=== PATIENT | male | born 1935 | race Caucasian/White ===

== ENCOUNTER → 2018-01-25 14:35 | Outpatient (CLI) | payer MEDICARE, SELFPAY ==
[2018-01-28 16:55] LABS: Fecal Immunochemical Test NOT DETECTED
== END ==
PROVIDERS: PCP Family Medicine; Visit Provider Family Medicine
DX: K63.5 Polyp of colon (principal)
CPT/HCPCS: 36415; 82274

== ENCOUNTER 2018-11-29 11:19 | Emergency (ER) | payer MEDICARE, SELFPAY ==
[2018-11-29 11:51] VITALS: BP 142/86; PULSE 88; RESP 15; TEMP 36.2; O2SAT 98
[2018-11-29 11:55] VITALS: BP 150/90; PULSE 87; RESP 20; TEMP 36.5; O2SAT 95
--- NOTE | 2018-11-29 13:00 | ED.EXTPRO ---
HPI - Extremity Problem <Ya Peres PA-C - Last Filed: 11/29/18 21:53> General Chief complaint: Extremity Problem,Nontraumatic Stated complaint: Swelling in ankles/hands painful Time Seen by Provider: 11/29/18 12:51 Source: patient Mode of arrival: ambulatory Limitations: no limitations History of Present Illness HPI Narrative: This 83-year-old male states his hands and wrists have been painful and swollen for several weeks. He denies any known trauma although states he has been pushing himself off with his hands to get up, but that is not unusual for him. He states that he saw his PCP recently for knee arthritis and was advised to take ibuprofen for that. He states ibuprofen seems to have helped his knee and initially his hands and wrists, but for the last for 5 days has not been working as well and keeping him from sleep. He states that he has also noticed a bit of swelling in his feet which is new, but his feet are not painful. He denies any pain in any proximal joints or any swelling. He has not had any new rashes or fevers. He denies any recent travel. He denies any dyspnea or chest pain. he denies any other new complaints. Related Data Home Medications Medication Instructions Recorded Confirmed finasteride 5 mg PO DAILY #90 11/09/17 11/29/18 Previous Rx's Medication Instructions Recorded meloxicam 15 mg PO DAILY #10 tab 11/29/18 Allergies Allergy/AdvReac Type Severity Reaction Status Date / Time No Known Drug Allergies Allergy Verified 01/12/18 13:59 Review of Systems <Ya Peres PA-C - Last Filed: 11/29/18 21:53> Review of Systems ROS Unobtainable: All systems reviewed & are unremarkable except as noted in HPI and below PFSH <Ya Peres PA-C - Last Filed: 11/29/18 21:53> Medical History Colon polyps (Chronic) Elevated blood pressure reading (Chronic) Chickenpox (Resolved ~1943) Measles (Resolved ~1944) Skin cancer (Resolved 2014) Surgical History H/O local excision of skin lesion (Chronic) Family History Father No problems noted. Mother No problems noted. Grandfather No problems noted. Social History Smoking Status: Former smoker alcohol intake: current Family History Father No problems noted. Mother No problems noted. Grandfather No problems noted. Social History Smoking Status: Former smoker alcohol intake: current Exam <Ya Peres PA-C - Last Filed: 11/29/18 21:53> Narrative Exam Narrative: GENERAL APPEARANCE: Patient sitting comfortably, in no distress. LUNGS: Clear to auscultation bilaterally. HEART: Rate and rhythm regular without murmur, normal S1 and S2, no S3 or S4. MUSCULOSKELETAL: Both hands are nodular, and there is bilateral hand effusion which extends to the wrists, not the forearms. He has reduced range of motion of the fingers secondary to edema, minimal tenderness with palpation over the wrists and hands, no localized tenderness. normal range of motion of the elbows. No tenderness over the feet or ankles where he has full range of motion. no effusions proximal to the distal extremities. EXTREMITIES: Mild pedal edema, pedal pulses intact, feet are warm and pink. No cyanosis NEURO: Sensation is grossly intact over the extremities, intention tremor noted Initial Vital Signs Initial Vital Signs: Vital Signs Temperature 97.2 F L 11/29/18 11:51 Pulse Rate 88 11/29/18 11:51 Respiratory Rate 15 11/29/18 11:51 Blood Pressure 142/86 H 11/29/18 11:51 Pulse Oximetry 98 11/29/18 11:51 <Ancelmo Reveles DO - Last Filed: 11/30/18 07:10> Initial Vital Signs Initial Vital Signs: Vital Signs Temperature 97.2 F L 11/29/18 11:51 Pulse Rate 88 11/29/18 11:51 Respiratory Rate 15 11/29/18 11:51 Blood Pressure 142/86 H 11/29/18 11:51 Pulse Oximetry 98 11/29/18 11:51 Course <Ya Peres PA-C - Last Filed: 11/29/18 21:53> Additional Information: Discussed with patient need for further workup, would start with x-ray and some lab work. He prefers to do this is an outpatient for these ongoing symptoms. he does not think he will have any problems seeing his PCP in the next few days but will return if acutely worse. Ibuprofen had been helping, but not taking consistently. Will change to meloxicam prior to him seeing PCP to see if this is helpful, and discussed if not may need a trial of steroids. Vital Signs - 8 hr 11/29/18 11:51 11/29/18 11:55 Temperature 97.2 F L 97.7 F Pulse Rate 88 87 Respiratory Rate 15 20 Blood Pressure 142/86 H Blood Pressure [Left Arm] 150/90 H Pulse Oximetry 98 95 <Ancelmo Reveles, DO - Last Filed: 11/30/18 07:10> Vital Signs - 8 hr 11/29/18 11:51 11/29/18 11:55 Temperature 97.2 F L 97.7 F Pulse Rate 88 87 Respiratory Rate 15 20 Blood Pressure 142/86 H Blood Pressure [Left Arm] 150/90 H Pulse Oximetry 98 95 Discharge Plan Departure Patient Disposition: Home Clinical Impression: Pedal edema Effusion of joint, hand Qualifiers: Laterality: unspecified laterality Qualified Code(s): M25.449 - Effusion, unspecified hand Discharge Date/Time: 11/29/18 13:30 Interventions: ED Discharge Assessment Last Done: 11/29/18 13:49 Instructions: DI for Joint Pain Activity Restrictions/Additional Instructions: As we talked about, I do think you need further testing for your hand and wrist swelling, with an x-ray and some lab work to start. Your foot swelling may or may not be related to this since you are having no pain or stiffness in your feet. Since you prefer to do that as an outpatient, please make sure that you follow-up with Dr. Gamez this week, call their when you leave here and let his office know that you were seen in the emergency room and we advised follow-up in the next couple of days since you are getting worse. Please return as we talked about if you have any acutely worsening symptoms or new symptoms such as breathing difficulty. Please stop the ibuprofen. I have prescribed a once daily cousin of it since it was helping you, we can see if more consistent dosing is better for your pain. it is called meloxicam and you can started as soon as you pick it up. If you need additional medicine, please try adding some Tylenol 8 hour or arthritis strength, 1 tablet or capsule 3-4 times daily (and at least try taking 1 at bedtime). Ask the pharmacist for this if you cannot find it, it is [id number]. You can also try topical cream such as Lenard Parker, Blue Emu etc. Prescriptions: New meloxicam 15 mg tablet 15 mg PO DAILY Qty: 10 RF: 0 No Action finasteride 5 MG tablet 5 mg PO DAILY Qty: 90 RF: 0 Referrals: Parish Gamez MD [Primary Care Provider] - <Ancelmo Reveles DO - Last Filed: 11/30/18 07:10> Cosign ED Attending Pjature Attestation: I was available for consultation during this patient's emergency department encounter
--- NOTE | 2018-11-29 13:33 | PC.NURSE ---
Bilateral hand swelling - Right > Left; Bilateral hand pain - Right > Left with pain radiating up towards the elbow; Stated My fingers too puffy to tie my shoes
[2018-11-29 13:49] VITALS: BP 148/66; PULSE 85; RESP 18; TEMP 36.3; O2SAT 98
== END 2018-11-29 13:30 | disposition home or self-care (01) ==
PROVIDERS: Emergency Provider Internal Medicine; PCP Family Medicine
DX: R60.0 Localized edema (principal); M25.449 Effusion, unspecified hand
CPT/HCPCS: 99282; 99283

== ENCOUNTER 2020-07-09 11:12 | Inpatient (IN) | payer MEDICARE, SELFPAY ==
[2020-07-09] VITALS (17 sets, daily range): BP systolic 130–185; BP diastolic 74–102; PULSE 69–103; RESP 12–27; TEMP 36.2–36.9; O2SAT 97–100; BMI 25.7
--- NOTE | 2020-07-09 11:25 | DI.RAD.S_ITS ---
PROCEDURE: XR HIP W PEL IF DONE LT MIN 4V INDICATIONS: fall t-7 days, pain in left hip TECHNIQUE: AP pelvis with lateral view(s) of the bilateral hip(s). COMPARISON: None. FINDINGS: Bones: No fractures or dislocations. Right worse than left bilateral hip joint osteoarthritic changes are seen. No evidence of avascular necrosis of femoral head. Pelvic ring appears intact. No suspicious bony lesions. Soft tissues: The visualized bowel gas pattern is normal. No suspicious soft tissue calcifications. IMPRESSION: No hip fracture or dislocation. Right worse than left bilateral hip joint osteoarthritis. No evidence of avascular necrosis. Dictated by: Lon Quach M.D. on 07/09/2020 at 12:29 Approved by: Lon Quach M.D. on 07/09/2020 at 12:30
[2020-07-09 14:10] LABS: Add Manual Diff / Slide Review NO; Basophils Absolute Auto 0 /uL (0-100); Basophils Percent Auto 0.5 % (0-2); Eosinophils Absolute Auto 200 /uL (0-450); Eosinophils Percent Auto 2.5 % (2-4); Hematocrit 45.4 % (41-53); Hemoglobin 15.3 g/dL (13.5-17.5); Lymphocytes Absolute Auto 500 /uL (1100-4500); Lymphocytes Percent Auto 8.6 % (25-40); Mean Corpuscular HGB Conc 33.7 % (30-36); Mean Corpuscular Hemoglobin 32.4 PG (26-34); Mean Corpuscular Volume 95.9 fL (80-100); Monocytes Absolute Auto 800 /uL (0-900); Monocytes Percent Auto 13.4 % (3-14); Neutrophils Absolute Auto 4500 /uL (1500-7000); Platelet Count 221 X10^3/uL (150-400); Red Blood Cell Count 4.74 X10^6/uL (4.5-5.9); Red Cell Distribution Width 15.2 % (11.6-14.8)
--- NOTE | 2020-07-09 14:18 | PC.NURSE ---
Pt up at bedside for mobilization trial. Pt very weak in bilateral legs. Wobbling and shaking. Stood for 30 seconds with RN and BIOMATERIALS ENGINEER on standby. Unable to side step. Moves around in bed with good upper extremity strength. MD notified. Pt positioned with pillow on right hip and gentle border dressing placed to pressure sore on right hip.
[2020-07-09 14:21] LABS: Bacteria Urine None Seen
[2020-07-09 14:22] LABS: Appearance Urine UA CLEAR; Bilirubin Urine UA NEGATIVE (NEGATIVE); Color Urine UA YELLOW; Glucose Urine UA NEGATIVE (Negative); Ketones Urine UA 1+ (NEGATIVE); Leukocyte Esterase Urine UA NEGATIVE (NEGATIVE); Nitrite Urine UA NEGATIVE (Negative); Occult Blood Urine UA TRACE-INTACT (Negative); Protein Urine UA NEGATIVE (Negative); Urobilinogen Urine UA 0.2 E.U./dL (0.2)
--- NOTE | 2020-07-09 14:22 | PC.NURSE ---
pressure wound 9cm x 5cm. redness and warmth noted. closed tissue noted.
[2020-07-09 14:40] LABS: Creatine Kinase 275 U/L (55-170); Magnesium 2.1 mg/dL (1.6-2.3)
[2020-07-09 14:41] LABS: RBC Urine 1-5/HPF (0-5/HPF)
[2020-07-09 14:42] LABS: WBC Urine 5-10/HPF (0-5/HPF)
[2020-07-09 14:43] LABS: Culture Indicated Urine Specimen Cultured; White Blood Cell Casts Urine 1-5/LPF
[2020-07-09 14:52] LABS: NT-proBNP (BNP-Adult 18+) 236 pg/mL (<450); Troponin I < 0.012 ng/mL (0.01-0.034)
--- NOTE | 2020-07-09 15:11 | ED_ITS ---
HPI - Fall General Chief Complaint: Fall Stated Complaint: fall Time Seen by Provider: 07/09/20 11:27 Source: patient and EMS Mode of arrival: EMS History of Present Illness HPI Narrative: 84-year-old gentleman with a history of BPH fell at home on July 02 and was unable to get off the floor. He and his felt that it was most appropriate to bring a twin mattress down stairs and he was able roll onto this mattress and has been the last week lying on the floor. Has not had a bowel movement and his has been providing him a urinal as well as food on the floor. He is not particularly complaining of pain and states that he simply was too weak to get. He states that he told his primary care physician that he was having more global weakness and was sent to physical therapy. After approximately 10 visits physical therapist felt that he was getting quite a bit stronger. Based on that information, the patient felt that he would improve and that staying on the floor unable to get up was appropriate. He describes no f iza, cough, chills, chest pain, shortness of breath, abdominal pain, lower extremity pain. He stated that he had a slight amount of left hip pain at 1 point but that is essentially better. He has a decubitus stage I developing over the right hip. Related Data Home Medications Medication Instructions Recorded Confirmed finasteride 5 mg PO DAILY #90 11/09/17 11/29/18 Previous Rx's Medication Instructions Recorded meloxicam 15 mg PO DAILY #10 tab 11/29/18 Allergies Allergy/AdvReac Type Severity Reaction Status Date / Time No Known Drug Allergies Allergy Verified 01/12/18 13:59 Review of Systems Review of Systems Narrative: Remainder of review of systems including constitutional, ENT, cardiovascular, respiratory, GI, , musculoskeletal, skin, neurologic and psychiatric systems reviewed and are unremarkable except as noted in HPI. Patient History Medical History (Updated 07/09/20 @ 18:27 by Ciara Keith MD) Chickenpox (~1944) Colon polyps Elevated blood pressure reading Measles (~1945) Skin cancer (2014) Surgical History H/O local excision of skin lesion Family History Father No problems noted. Mother No problems noted. Grandfather No problems noted. Social History Smoking Status: Former smoker alcohol intake: current Smoking Status: Former smoker alcohol intake frequency: holidays/special occasions only Alcohol type: wine Substance Use Type: does not use Exam Narrative Exam Narrative: General: Healthy appearing, in no acute distress. Able to give a complete and coherent history. Well-nourished well-developed HEENT: Moist mucous membranes, normal sclera with reactive pupils, Neck: No JVD, supple Respiratory: Lungs are clear to auscultation, no wheezing no rales no rhonchi. Full and symmetrical air movement Cardiac: Regular rate and rhythm no murmurs no bruits Abdomen: Obese, Soft, nontender good bowel tones, no flank pain Skin: Warm and dry, no rashes Neurologic: Not oriented to day or date, able to carry on a complete conversation. Globally weak and when standing needs 2 person standby assist to simply stand bedside. Legs are bilaterally weak. No other localizing neurologic findings, no facial droop no upper extremity asymmetries. Extremities: No trauma, well perfused, 5 x 5 cm stage I decubitus ulcer developing over the right greater trochanter where he has been lying the last w [place]. No tenderness with internal or external rotation of either leg at the hip joint. No tenderness with pelvic ring manipulation Psych: Cooperative, history suggests some cognitive judgment impairment, speech fluency is normal, nonpressured without any delusional thinking or Initial Vital Signs Initial Vital Signs: Vital Signs Pulse Rate 86 07/09/20 11:16 Respiratory Rate 27 H 07/09/20 11:16 Pulse Oximetry 99 07/09/20 11:16 Course Orders Ordered: ED Orders 07/09/20 11:25 XR hip w pel if done GERI 3to4V Stat 07/09/20 11:26 Consult to RETAIL LOSS PREVENTION SPECIALIST - Wastewater Analyst Stat 07/09/20 14:02 Complete Blood Count AUTO DIFF Stat Comprehensive Metabolic Panel Stat Creatine Kinase Stat Magnesium Stat NT-proBNP (BNP-Adult 18+) Stat Procalcitonin Stat Troponin I Stat 07/09/20 14:17 Urinalysis and Microscopic Stat Urine Culture Stat 07/09/20 15:12 CT head/brain wo con Stat 07/09/20 17:17 EKG-12 Lead Stat 07/09/20 17:29 COVID19 Stat Vital Signs Vital signs: Vital Signs - 8 hr 07/09/20 11:16 07/09/20 11:18 07/09/20 11:30 Temperature 97.8 F Pulse Rate 86 84 88 Respiratory Rate 27 H 12 25 H Blood Pressure 175/85 H 151/102 H Pulse Oximetry 99 98 100 07/09/20 11:46 07/09/20 12:00 07/09/20 12:30 Temperature Pulse Rate 73 85 69 Respiratory Rate 19 26 H 17 Blood Pressure 181/82 H 168/78 H 185/81 H Pulse Oximetry 99 100 99 07/09/20 13:00 07/09/20 13:30 07/09/20 14:00 Temperature Pulse Rate 83 87 89 Respiratory Rate 21 16 Blood Pressure 147/74 H 162/83 H Pulse Oximetry 98 99 99 07/09/20 14:01 07/09/20 14:07 07/09/20 14:30 Temperature Pulse Rate 86 94 H 75 Respiratory Rate 20 25 H 14 Blood Pressure 156/86 H 150/75 H 175/79 H Pulse Oximetry 98 100 07/09/20 15:00 07/09/20 15:27 07/09/20 15:30 Temperature Pulse Rate 80 93 H 78 Respiratory Rate 17 16 13 Blood Pressure 136/74 130/102 H 156/86 H Pulse Oximetry 98 97 97 MDM - Fall Medical Records Attestation: I reviewed the patient's medical records. Lab Data Attestation: I reviewed the patient's lab results. Result diagrams: 07/09/20 14:02 07/09/20 14:02 Labs: Lab Results 07/09/20 07/09/20 07/09/20 Range/Units 14:02 14:02 14:02 WBC 6.0 (4.5-11.0) X10^3/uL RBC 4.74 (4.5-5.9) X10^6/uL Hgb 15.3 (13.5-17.5) g/dL Hct 45.4 (41-53) % MCV 95.9 (80-100) fL MCH 32.4 (26-34) PG MCHC 33.7 (30-36) % RDW 15.2 H (11.6-14.8) % Plt Count 221 (150-400) X10^3/uL Neut % (Auto) 75.0 (50-75) % Lymph % (Auto) 8.6 L (25-40) % [place] % (Auto) 13.4 (3-14) % Eos % (Auto) 2.5 (2-4) % Baso % (Auto) 0.5 (0-2) % Neut # (Auto) 4500 (6905-9264) /uL Lymph # (Auto) 500 L (7994-8928) /uL [place] # (Auto) 800 (0-900) /uL Eos # (Auto) 200 (0-450) /uL Baso # (Auto) 0 (0-100) /uL Sodium 137 (137-145) mmol/L Potassium 4.0 (3.4-5.1) mmol/L Chloride 106 (98-107) mmol/L Carbon Dioxide 23 (22-32) mmol/L BUN 18 (9-20) mg/dL Creatinine 0.55 L (0.66-1.25) mg/dL Estimated GFR > 60.0 (>60) mL/min BUN/Creatinine Ratio 32.7 H (6-22) Glucose 96 (80-110) mg/dL Calcium 9.2 (8.4-10.2) mg/dL Magnesium 2.1 (1.6-2.3) mg/dL Total Bilirubin 0.9 (0.2-1.3) mg/dL AST 78 H (17-59) IU/L ALT 53 H (<50) IU/L Alkaline Phosphatase 150 H (38-126) U/L Total Creatine Kinase Cancelled 275 H Troponin I < 0.012 (0.01-0.034) ng/mL NT-Pro-B Natriuret Pep 236 (<450) pg/mL Total Protein 6.9 (6.3-8.2) g/dL Albumin 3.8 (3.5-5.0) g/dL Globulin 3.1 (1.7-4.1) g/dL Albumin/Globulin Ratio 1.2 (1.0-2.8) Procalcitonin (<0.5) ng/mL Urine Color Urine Appearance Urine pH (4.5-8.0) Ur Specific [place] (1.000-1.035) Urine Protein (Negative) Urine Glucose (UA) (Negative) g/dL Urine Ketones (NEGATIVE) Urine Occult Blood (Negative) Urine Nitrate (Negative) Urine Bilirubin (NEGATIVE) Urine Urobilinogen (0.2) E.U./dL Ur Leukocyte Esterase (NEGATIVE) Urine RBC (0-5/HPF) Urine WBC (0-5/HPF) Urine Bacteria (None) WBC Casts (None) Ur Culture Indicated? 07/09/20 07/09/20 Range/Units 14:02 14:17 WBC (4.5-11.0) X10^3/uL RBC (4.5-5.9) X10^6/uL Hgb (13.5-17.5) g/dL Hct (41-53) % MCV (80-100) fL MCH (26-34) PG MCHC (30-36) % RDW (11.6-14.8) % Plt Count (150-400) X10^3/uL Neut % (Auto) (50-75) % Lymph % (Auto) (25-40) % [place] % (Auto) (3-14) % Eos % (Auto) (2-4) % Baso % (Auto) (0-2) % Neut # (Auto) (6241-7662) /uL Lymph # (Auto) (4168-9018) /uL [place] # (Auto) (0-900) /uL Eos # (Auto) (0-450) /uL Baso # (Auto) (0-100) /uL Sodium (137-145) mmol/L Potassium (3.4-5.1) mmol/L Chloride (98-107) mmol/L Carbon Dioxide (22-32) mmol/L BUN (9-20) mg/dL Creatinine (0.66-1.25) mg/dL Estimated GFR (>60) mL/min BUN/Creatinine Ratio (6-22) Glucose (80-110) mg/dL Calcium (8.4-10.2) mg/dL Magnesium (1.6-2.3) mg/dL Total Bilirubin (0.2-1.3) mg/dL AST (17-59) IU/L ALT (<50) IU/L Alkaline Phosphatase (38-126) U/L Total Creatine Kinase Troponin I (0.01-0.034) ng/mL NT-Pro-B Natriuret Pep (<450) pg/mL Total Protein (6.3-8.2) g/dL Albumin (3.5-5.0) g/dL Globulin (1.7-4.1) g/dL Albumin/Globulin Ratio (1.0-2.8) Procalcitonin < 0.05 (<0.5) ng/mL Urine Color Yellow Urine Appearance Clear Urine pH 5.0 (4.5-8.0) Ur Specific [place] 1.020 (1.000-1.035) Urine Protein Negative (Negative) Urine Glucose (UA) Negative (Negative) g/dL Urine Ketones 1+ H (NEGATIVE) Urine Occult Blood Trace-intact (Negative) Urine Nitrate Negative (Negative) Urine Bilirubin Negative (NEGATIVE) Urine Urobilinogen 0.2 (0.2) E.U./dL Ur Leukocyte Esterase Negative (NEGATIVE) Urine RBC 1-5/hpf (0-5/HPF) Urine WBC 5-10/hpf H (0-5/HPF) Urine Bacteria None seen (None) WBC Casts 1-5/lpf H (None) Ur Culture Indicated? Specimen cultured Imaging Data X-ray pelvis and bilateral hips: Radiologist's Impression: FINDINGS: Bones: No fractures or dislocations. Right worse than left bilateral hip joint osteoarthritic changes are seen. No evidence of avascular necrosis of femoral head. Pelvic ring appears intact. No suspicious bony lesions. Soft tissues: The visualized bowel gas pattern is normal. No suspicious soft tissue calcifications. IMPRESSION: No hip fracture or dislocation. Right worse than left bilateral hip joint osteoarthritis. No evidence of avascular necrosis. Dictated by: Lon Quach M.D. on 07/09/2020 at 12:29 CT scan - head: Radiologist's Impression: FINDINGS: Image quality: Excellent. CSF spaces: Basal cisterns are patent. No extra-axial fluid collections. The ventricles are symmetric in size and shape. Brain: No intracranial bleeds or masses. Punctate hypodensity noted in the right basal ganglia which could represent subacute lacunar infarct versus volume averaging or artifact related to prominent perivascular space. There is cerebral volume loss for age, with resultant ventricular and sulcal prominence. There are periventricular and deep white matter chronic small vessel ischemic changes. There is intracranial internal carotid artery atherosclerosis. Skull and face: Calvarium and visualized facial bones appear intact, without suspicious lesions. Sinuses: Visualized sinuses and mastoids are clear. IMPRESSION: 1. Small right basal ganglia subacute lacunar infarct versus prominent perivascular space. 2. No intracranial hemorrhage. Dictated by: Cassidy Morales MD, PhD on 07/09/2020 at 15:46 MDM Narrative Medical decision making narrative: Talked with Dr. Rodríguez, hospitalist. Will admit for generalized weakness inability to stand up and possible stroke a week ago. Because of the uncertain diagnosis tPA is not appropriate No obvious metabolic disorders. Urine has been cultured but will not begin antibiotics for UTI at this time. Will need COVID testing for hospital admission Will plan for observation admission at this time Discharge Plan Departure Patient Disposition: Admitted as Observation Clinical Impression: Fall Qualifiers: Encounter type: initial encounter Qualified Code(s): W19.XXXA - Unspecified fall, initial encounter Stroke Qualifiers: CVA mechanism: unspecified Qualified Code(s): I63.9 - Cerebral infarction, unspecified Admit Date/Time: 07/09/20 17:20 Admit Provider: Vinod Rodríguez
--- NOTE | 2020-07-09 15:12 | DI.CT.S_ITS ---
PROCEDURE: CT HEAD/BRAIN WO CON INDICATIONS: increased global weakness and inabiltiy to walk - LE weaknes TECHNIQUE: Noncontrast 4.5 mm thick angled axial sections acquired from the foramen magnum to the vertex, with coronal and sagittal reformats. For radiation dose reduction, the following was used: automated exposure control, adjustment of mA and/or kV according to patient size. COMPARISON: None. FINDINGS: Image quality: Excellent. CSF spaces: Basal cisterns are patent. No extra-axial fluid collections. The ventricles are symmetric in size and shape. Brain: No intracranial bleeds or masses. Punctate hypodensity noted in the right basal ganglia which could represent subacute lacunar infarct versus volume averaging or artifact related to prominent perivascular space. There is cerebral volume loss for age, with resultant ventricular and sulcal prominence. There are periventricular and deep white matter chronic small vessel ischemic changes. There is intracranial internal carotid artery atherosclerosis. Skull and face: Calvarium and visualized facial bones appear intact, without suspicious lesions. Sinuses: Visualized sinuses and mastoids are clear. IMPRESSION: 1. Small right basal ganglia subacute lacunar infarct versus prominent perivascular space. 2. No intracranial hemorrhage. Dictated by: Cassidy Morales MD, PhD on 07/09/2020 at 15:46 Approved by: Cassidy Morales MD, PhD on 07/09/2020 at 15:48
[2020-07-09 15:29] LABS: Alanine Aminotransferase 53 IU/L (<50); Albumin 3.8 g/dL (3.5-5.0); Albumin Globulin Ratio 1.2 (1.0-2.8); Alkaline Phosphatase 150 U/L (38-126); Aspartate Aminotransferase 78 IU/L (17-59); BUN Creatinine Ratio 32.7 (6-22); Bilirubin Total 0.9 mg/dL (0.2-1.3); Blood Urea Nitrogen 18 mg/dL (9-20); Calcium 9.2 mg/dL (8.4-10.2); Carbon Dioxide 23 mmol/L (22-32); Chloride 106 mmol/L (98-107); Estimated Glomerular Filt Rate > 60.0 mL/min (>60); Globulin 3.1 g/dL (1.7-4.1); Glucose 96 mg/dL (80-110); HEMOLYSIS 43 (0-50); Sodium 137 mmol/L (137-145); Total Protein 6.9 g/dL (6.3-8.2)
[2020-07-09 15:31] LABS: Procalcitonin < 0.05 ng/mL (<0.5)
[2020-07-09 17:53] LABS: COVID19 -Nasal RAPID Negative (Negative)
--- NOTE | 2020-07-09 18:37 | P.HP_ITS ---
History of Present Illness History of Present Illness Date Patient Seen: 07/09/20 Time Patient Seen: 18:37 Chief complaint: fall Narrative: Fredrick Morales is an 84 year old male with PMH of BPH who presented to the emergency room with frequent falls. The patient reports falling at home a couple of weeks ago, he has been afraid to get up and move due to his frequent falls and weakness. According to the ER provider he and his thought it was most appropriate to bring a twin mattress down stairs and had provided him with a urinal as well as food on the floor. He has not had a bowel movement in the past week. He denies any chest pain, palpitations, lower extremity swelling or edema, shortness of breath, dizziness. He does complain of worsening weakness. He reports that he recently saw a neurologist but for what exactly he could not tell me and he had just completed physical therapy. He further denies any fevers, chills, cough, abdominal pain. He does endorse some urinary frequency no dysuria. He does endorse hip pain after his fall, but when asked where in his hip he was not able to tell me if this was in his left or right side In the emergency room, patient was mildly hypertensive but the remainder of his vital signs are unremarkable. Initial CBC was unremarkable, chemistries revealed a mildly elevated AST of 78, mildly elevated ALT of 53, alk-phos of 150, CK was mildly elevated 275. Troponin was negative. ProBNP was 236. P rocalcitonin was negative. Urinalysis showed 5-10 white blood cells per high- powered field and white blood cell casts, specimen was sent for culture. COVID- 19 testing was negative. EKG was unremarkable but is limited by significant baseline artifact probably due to his tremor. CT noncontrast of his head showed a possible right basal ganglia subacute infarct. Patient is admitted under inpatient status for likely CVA. Patient History Medical History Chickenpox (~1944) Colon polyps Elevated blood pressure reading Measles (~1945) Skin cancer (2014) Surgical History H/O local excision of skin lesion Family & Social History Family History Father No problems noted. Mother No problems noted. Grandfather No problems noted. Safety & Behavioral: Feels Safe in Current Yes Environment Been Physically Hurt or No Threatened By a Person Tobacco & Substance use: Smoking Status Former smoker alcohol intake current alcohol intake frequency holiday/special occasion Substance Use Type does not use Meds Home Medications and Allergies Home Medications Medication Instructions Recorded Confirmed Type finasteride 5 mg PO DAILY #90 11/09/17 07/09/20 History Allergies Allergy/AdvReac Type Severity Reaction Status Date / Time No Known Drug Allergies Allergy Verified 01/12/18 13:59 Review of Systems Review of Systems Narrative: All other systems reviewed with the patient and are negative unless otherwise stated. Exam Vital Signs (past 8 hours): - 07/09/20 11:16 07/09/20 11:18 07/09/20 11:30 Temperature 97.8 F Pulse Rate 86 84 88 Respiratory Rate 27 H 12 25 H Blood Pressure 175/85 H 151/102 H Pulse Oximetry 99 98 100 07/09/20 11:46 07/09/20 12:00 07/09/20 12:30 Temperature Pulse Rate 73 85 69 Respiratory Rate 19 26 H 17 Blood Pressure 181/82 H 168/78 H 185/81 H Pulse Oximetry 99 100 99 07/09/20 13:00 07/09/20 13:30 07/09/20 14:00 Temperature Pulse Rate 83 87 89 Respiratory Rate 21 16 Blood Pressure 147/74 H 162/83 H Pulse Oximetry 98 99 99 07/09/20 14:01 07/09/20 14:07 07/09/20 14:30 Temperature Pulse Rate 86 94 H 75 Respiratory Rate 20 25 H 14 Blood Pressure 156/86 H 150/75 H 175/79 H Pulse Oximetry 98 100 07/09/20 15:00 07/09/20 15:27 07/09/20 15:30 Temperature Pulse Rate 80 93 H 78 Respiratory Rate 17 16 13 Blood Pressure 136/74 130/102 H 156/86 H Pulse Oximetry 98 97 97 Oxygen Delivery Method Room Air Narrative Exam Narrative: GENERAL APPEARANCE: Well developed, well nourished, in no acute distress. SKIN: Inspection of the skin reveals no rashes or petechiae. There is a right hip stage I decubitus ulcer. HEENT: Normocephalic atraumatic, extraocular muscles are intact, oropharynx is clear and mucous membranes are moist, neck is supple without adenopathy NECK: Supple and symmetric. There was no thyroid enlargement, and no tenderness, or masses were felt. CHEST: Normal AP diameter and normal contour without any kyphoscoliosis. LUNGS: Auscultation of the lungs revealed no wheezes, rhonchi, or rales. CARDIOVASCULAR: There was a regular rate and rhythm without any murmurs, gallops, rubs. Peripheral pulses were 2+ and symmetric. ABDOMEN: Soft and nontender with normal bowel sounds. No ascites was noted. MUSCULOSKELETAL: There was no tenderness or effusions noted. Muscle strength and tone were normal. EXTREMITIES: No cyanosis, clubbing or edema. NEUROLOGIC: Alert and oriented x 3. Normal affect, but mild to moderate cognitive impairment. Left leg drifts down to bed with mild left-sided ataxia. NIH stroke scale of 2 as documented below. Cranial nerves 2-12 grossly intact bilaterally. Mild tremor, more prominent in left compared to the right. Sensation to light touch is intact bilaterally. Objective ECG Impression: Normal sinus rhythm with significant baseline artifact making further interpretation difficult Imaging CT scan - head: Radiologist's impression: INDICATIONS: increased global weakness and inabiltiy to walk - [facility] TECHNIQUE: Noncontrast 4.5 mm thick angled axial sections acquired from the foramen magnum to the vertex, with coronal and sagittal reformats. For radiation dose reduction, the following was used: automated exposure control, adjustment of mA and/or kV according to patient size. COMPARISON: None. FINDINGS: Image quality: Excellent. CSF spaces: Basal cisterns are patent. No extra-axial fluid collections. The ventricles are symmetric in size and shape. Brain: No intracranial bleeds or masses. Punctate hypodensity noted in the right basal ganglia which could represent subacute lacunar infarct versus volume averaging or artifact related to prominent perivascular space. There is cerebral volume loss for age, with resultant ventricular and sulcal prominence. There are periventricular and deep white matter chronic small vessel ischemic changes. There is intracranial internal carotid artery atherosclerosis. Skull and face: Calvarium and visualized facial bones appear intact, without suspicious lesions. Sinuses: Visualized sinuses and mastoids are clear. IMPRESSION: 1. Small right basal ganglia subacute lacunar infarct versus prominent perivascular space. 2. No intracranial hemorrhage. Labs Result Diagrams: 07/09/20 14:02 07/09/20 14:02 Labs: Laboratory Results - last 24 hr 07/09/20 07/09/20 07/09/20 14:02 14:02 14:02 WBC 6.0 RBC 4.74 Hgb 15.3 Hct 45.4 MCV 95.9 MCH 32.4 MCHC 33.7 RDW 15.2 H Plt Count 221 Neut % (Auto) 75.0 Lymph % (Auto) 8.6 L [place] % (Auto) 13.4 Eos % (Auto) 2.5 Baso % (Auto) 0.5 Neut # (Auto) 4500 Lymph # (Auto) 500 L [place] # (Auto) 800 Eos # (Auto) 200 Baso # (Auto) 0 Sodium 137 Potassium 4.0 Chloride 106 Carbon Dioxide 23 BUN 18 Creatinine 0.55 L Estimated GFR > 60.0 BUN/Creatinine Ratio 32.7 H Glucose 96 Calcium 9.2 Magnesium 2.1 Total Bilirubin 0.9 AST 78 H ALT 53 H Alkaline Phosphatase 150 H Total Creatine Kinase Cancelled 275 H Troponin I < 0.012 NT-Pro-B Natriuret Pep 236 Total Protein 6.9 Albumin 3.8 Globulin 3.1 Albumin/Globulin Ratio 1.2 Procalcitonin Urine Color Urine Appearance Urine pH Ur Specific [place] Urine Protein Urine Glucose (UA) Urine Ketones Urine Occult Blood Urine Nitrate Urine Bilirubin Urine Urobilinogen Ur Leukocyte Esterase Urine RBC Urine WBC Urine Bacteria WBC Casts Ur Culture Indicated? COVID-19 PCR 07/09/20 07/09/20 07/09/20 14:02 14:17 17:29 WBC RBC Hgb Hct MCV MCH MCHC RDW Plt Count Neut % (Auto) Lymph % (Auto) [place] % (Auto) Eos % (Auto) Baso % (Auto) Neut # (Auto) Lymph # (Auto) [place] # (Auto) Eos # (Auto) Baso # (Auto) Sodium Potassium Chloride Carbon Dioxide BUN Creatinine Estimated GFR BUN/Creatinine Ratio Glucose Calcium Magnesium Total Bilirubin AST ALT Alkaline Phosphatase Total Creatine Kinase Troponin I NT-Pro-B Natriuret Pep Total Protein Albumin Globulin Albumin/Globulin Ratio Procalcitonin < 0.05 Urine Color Yellow Urine Appearance Clear Urine pH 5.0 Ur Specific [place] 1.020 Urine Protein Negative Urine Glucose (UA) Negative Urine Ketones 1+ H Urine Occult Blood Trace-intact Urine Nitrate Negative Urine Bilirubin Negative Urine Urobilinogen 0.2 Ur Leukocyte Esterase Negative Urine RBC 1-5/hpf Urine WBC 5-10/hpf H Urine Bacteria None seen WBC Casts 1-5/lpf H Ur Culture Indicated? Specimen cultured COVID-19 PCR Negative Assessment & Plan Assessment & Plan narrative: Fredrick Morales is an 84 year old male with PMH of BPH who presented to the emergency room with frequent falls, he is admitted to Medicine with likely an acute CVA. 1. CVA, acute, present on admission -patient presents with inability to walk he reports over the past [address] without contrast performed in the emergency room shows a possible right basal ganglion infarct which would correlate with findings on exam of left lower extremity weakness and ataxia. -will check confirmatory MRI, start physical and occupational therapies, given presentation likely will need discharge to SNF for PT and OT, possibly acute [place] if able. -will start aspirin and Lipitor -risk stratify with TSH, A1c, and lipid panel -will obtain echocardiogram 2. Acute cystitis, present on admission - will start ceftriaxone 1 g q24 hours, pending urine cultures. Patient reports urinary frequency, UA with 5-10 WBC and WBC casts, sent for culture. 3. BPH, chronic - continue home finasteride. 4. Hypertension, chronic - will start low dose lisinopril 5. Elevated transaminase levels, present on admission - likely secondary to mild muscle breakdown from being immobilized for the past week per report. - will continue to follow. Encourage oral rehydration. 6. Suspected cognitive impairment, present on admission - OT as noted above. decision making is questionable as patient unable to walk at home for approximately one week. Will obtain social work evaluation. 7. Stage I decubitus ulcer, acute, present on admission - continue wound care per nursing staff. Code: Full, he states he has an advance care directive, surrogate decision maker is his Dispo: Admitted under inpatient status as his stay is expected to exceed 2 midnights. DVT: Lovenox daily COVID-19 COVID-19 status: Negative Scores NIHSS Level of Conciousness: Alert, keenly responsive Ask month/age: Answers both questions correctly. Open/close eyes, close hand: Performs both tasks correctly Best gaze horizontal: Normal Visual matos: No visual loss Facial palsy: Normal symetrical movement Left arm drift: No drift for full 10 sec Right arm drift: No drift for full 10 sec Left leg drift: Drifts down, not to bed Right leg drift: No drift for full 5 sec Limb ataxia: Present in one limb Sensory on face/arms/legs: Normal, no sensory loss Best language: No aphasia, normal Dysarthria: Normal Extinction or inattention: No abnormality Total NIH Stroke scale score: 2
--- NOTE | 2020-07-09 18:52 | DI.ECHO.S_ITS ---
[facility]---------+ [facility] +---------+ : : [address] [place] : : : : [id number] : : : : Phone: [phone] Echocardiogram Report + + :Name: JIAN JACOBSON I Study Date: 07/10/2020 Height: 74 in : :[facility] Weight: 200 lb : : Gender: Male BSA: 2.2 m2 : :: 1935 Age: 84 yrs BP: 138/84 mmHg: :Reason For Study: ACUTE CVA : :Ordering Physician: : :TOBIAS SPAULDING Performed By: Eileen Luevano : :Referring: TOBIAS SPAULDING : + + Interpretation Summary Normal sinus rhythm with occasional PAC's and frequent PVC's. Normal LV size, wall thickness, wall motion and LV systolic function. EF is 50-55%. Mild RA enlargement; otherwise normal chamber sizes. No evidence of PFO based on color flow Doppler. No valvular abnormalities. No source of embolism found. No prior study available for comparison. Procedure: A two-dimensional transthoracic echocardiogram with color flow and Doppler was performed. There is no prior echocardiogram noted for this patient. The study quality was technically difficult. A contrast injection of Definity was performed to improve assessment of LV function. Contrast was injected into an intravenous site in the left arm. The patient was in sinus rhythm with heart rates between 65-87 bpm during the exam. [employer] echocontrast was used to enhance echocardiogram. Left Ventricle: The left ventricle is normal in size. Left ventricular wall thickness is at the upper limits of normal. The ejection fraction is estimated to be 50-55%. Diastolic parameters suggest probable normal left ventricular diastolic function and normal filling pressures. Right Ventricle: The right ventricle is normal in size and function. Atria: The left atrial size is normal. The right atrium is mildly dilated. There is no Doppler evidence for an interatrial shunt. Mitral Valve: The mitral valve leaflets appear mildly thickened, but open well. There is trace mitral regurgitation. Aortic Valve: The aortic valve is not well visualized. The aortic valve opens well. There is no aortic valve stenosis. There is trace aortic regurgitation. Tricuspid Valve: The tricuspid valve is not well visualized, but is grossly normal. Right ventricular systolic pressure is estimated to be 17 mmHg plus the clinically estimated CVP which cannot be estimated on this exam. There is trace tricuspid regurgitation. Pulmonic Valve: The pulmonic valve is not well visualized. Great Vessels: The aortic root is not well visualized but is probably normal size. The ascending aorta could not be visualized. The inferior vena cava was not well visualized. Pericardium/ Pleura There is no pericardial effusion. There is no pleural effusion. MMode/2D Measurements & Calculations LVIDd: 4.9 cm LVOT diam: 2.5 cm LVIDs: 3.6 cm Ao Arch Diam (Prox Trans): 2.8 cm FS: 25.0 % EPSS: 1.2 cm IVSd: 0.93 cm LVPWd: 1.1 cm LV loyola. diameter/BSA (cm/m^2): 2.2 LV sys. diameter/BSA (cm/m^2): 1.7 LA A2 area: 18.5 cm2 RA long axis: 4.7 cm LA A4 area: 14.0 cm2 RA area: 21.7 cm2 LA length (vol): 5.5 cm RA vol: 85.1 ml LA vol: 39.9 ml RA : 39.2 ml/m2 LA vol index: 18.4 ml/m2 RVD1 (basal): 3.1 cm TAPSE: 2.0 cm Doppler Measurements & Calculations Ao V2 max: 84.8 cm/sec LVOT Max Gustavo: 58.2 cm/sec Ao V2 mean: 57.5 cm/sec LV V1 max P.4 mmHg Ao max P.9 mmHg LV V1 VTI: 13.8 cm Ao mean P.5 mmHg MARA(I,D): 3.6 cm2 Ao V2 VTI: 19.1 cm MARA(V,D): 3.4 cm2 sev ratio: 0.73 MARA indexed to BSA (cm^2/m^2): 1.7 MV E max gustavo: 46.7 cm/sec TR max gustavo: 210.0 cm/sec MV A max gustavo: 45.2 cm/sec TR max P.6 mmHg MV E/A: 1.0 Med Peak E' Gustavo: 6.9 cm/sec E/E' med: 6.8 Lat Peak E' Gustavo: 7.5 cm/sec E/E' lat: 6.2 E/e' average: 6.5 MV dec time: 0.23 sec SV(LVOT): 69.5 ml Electronically signed by: Maryse Crews M.D. on Reading Physician:07/10/2020 05:20 PM
[2020-07-09] MEDS: polyethylene glycoL 3350 17 GM POWD.PACK PO (19:26)
[2020-07-09] MEDS: CEFTRIAXONE 1 GM/50 ML FROZ.PIGGY IV (19:26)
[2020-07-09] MEDS: SENNOSIDES 8.6 MG TABLET 17.2 MG PO (21:03)
[2020-07-09] MEDS: ATORVASTATIN 20 MG TABLET 40 MG PO (21:03)
[2020-07-09] MEDS: APIXABAN 5 MG TABLET PO (21:03)
[2020-07-10] VITALS (10 sets, daily range): BP systolic 112–138; BP diastolic 61–83; PULSE 68–95; RESP 16–18; TEMP 36.3–36.9; O2SAT 94–100
--- NOTE | 2020-07-10 00:01 | DI.MRI.S_ITS ---
PROCEDURE: MR STROKE Pre- and post-contrast brain MRI, non-contrast brain MR angiogram, pre- and postcontrast neck MR angiogram INDICATIONS: LLE weakness, ataxia, possible infarct on CT. TECHNIQUE: Brain: Noncontrast axial T1 spin echo, axial T2 fast spin echo, sagittal and axial FLAIR, coronal T2 fast spin echo, axial gradient echo, axial diffusion and ADC through the brain. After the administration of contrast, axial 3D VIBE of the cranial vasculature and brain. Brain MRA: Non-contrast 3-D time of flight MR angiogram, with multiple mobbcmp-dhpdaegkr-utxzrromkr (MIP) reformats performed. Neck MRA: Axial and sagittal TruFISP through the neck. Coronal dynamic MR angiogram during administration of contrast in the arterial and venous phases, with 3-dimenstional tuqsyor-xiavbyxgk-lanouzaxbl (MIP) reformats constructed from subtraction images. COMPARISON: [facility], CT, CT HEAD/BRAIN WO CON, 07/09/2020, 15:17. FINDINGS: Image quality: Excellent. BRAIN: CSF spaces: Ventricles are dilated but symmetric in size and shape. Basal cisterns are patent. No extra-axial fluid collections. Brain: There is moderate cerebral volume loss. Diffusion weighted images show no acute ischemic insults. No findings to suggest chronic lacunar infarct. The hypodensity seen on CT in the right basal ganglia is most likely related to dilated perivascular space. No intracranial bleeds or mass effects. There are multiple foci of periventricular white matter T2 hyperintensity with configuration resembling [place] fingers. Brainstem appears normal. Normal intravascular flow voids are present. No abnormal intracranial enhancement. Skull and face: Calvarial marrow signal is normal. Orbits appear normal. Sinuses: Sinuses and mastoids are clear. BRAIN MR ANGIOGRAM: Anterior circulation: Intracranial internal carotid arteries are normal in size and enhancement. The flow within the paired anterior cerebral arteries is normal and symmetric. The flow within the middle cerebral arteries is normal and symmetric. The anterior communicating artery is seen. No stenoses, occlusions, or aneurysms. Posterior circulation: The visualized portions of the vertebral arteries demonstrate normal caliber, and join to form a normal appearing basilar artery. The flow within the posterior cerebral arteries is normal and symmetric. No stenoses, occlusions, or aneurysms. NECK MR ANGIOGRAM: Carotids: Great vessels demonstrate a conventional anatomy as they arise from the aortic arch. The origins of the common carotid arteries appear patent. The calibers and courses of both common carotid arteries are normal. The bifurcation regions appear normal bilaterally. The internal carotid arteries demonstrate normal course and caliber. Posterior circulation: The origins of the vertebral arteries appear patent. More superior portions of both vertebral arteries demonstrate normal course, and join to form a normal appearing basilar artery. There is moderate stenosis in the mid right cervical vertebral artery. Miscellaneous: Subclavian arteries appear patent. Pre-contrast images through the neck show no soft tissue abnormalities. IMPRESSION: BRAIN MRI: 1. No acute intracranial abnormalities. No findings to suggest acute stroke. 2. Multiple foci of periventricular white matter T2 hyperintensity with configuration resembling [place] fingers. The finding suggests a demyelinating process such as multiple sclerosis. A differential diagnosis is chronic small vessel ischemic change. Recommend clinical correlation. 3. Moderate a cerebral volume loss. Ventricular prominence is most likely secondary to central atrophy. A differential diagnosis is normal pressure hydrocephalus. Recommend clinical correlation. If clinically indicated, radionuclide ventriculography may be helpful. BRAIN MR ANGIOGRAM: 1. No high-grade stenosis or occlusion in anterior or posterior circulations. NECK MR ANGIOGRAM: 1. Widely patent carotid arteries bilaterally with no significant focal stenosis. 2. Moderate stenosis (50%) of the right mid vertebral artery. Dictated by: Jennifer Adams M.D. on 07/10/2020 at 11:36 Approved by: Jennifer Adams M.D. on 07/10/2020 at 12:03
[2020-07-10 04:57] LABS: Add Manual Diff / Slide Review NO; Basophils Absolute Auto 100 /uL (0-100); Eosinophils Absolute Auto 200 /uL (0-450); Eosinophils Percent Auto 2.7 % (2-4); Hematocrit 47.3 % (41-53); Hemoglobin 15.7 g/dL (13.5-17.5); Lymphocytes Absolute Auto 900 /uL (1100-4500); Mean Corpuscular HGB Conc 33.3 % (30-36); Mean Corpuscular Hemoglobin 32.3 PG (26-34); Mean Corpuscular Volume 96.9 fL (80-100); Monocytes Absolute Auto 1000 /uL (0-900); Monocytes Percent Auto 15.5 % (3-14); Neutrophils Absolute Auto 4200 /uL (1500-7000); Neutrophils Percent Auto 66.8 % (50-75); Platelet Count 231 X10^3/uL (150-400); Red Blood Cell Count 4.88 X10^6/uL (4.5-5.9); Red Cell Distribution Width 15.4 % (11.6-14.8); White Blood Cell Count 6.2 X10^3/uL (4.5-11.0)
[2020-07-10 05:03] LABS: Hemoglobin A1C% w Est Avg Glu 5.6 % (4.0-6.0)
[2020-07-10 05:08] LABS: Alanine Aminotransferase 49 IU/L (<50); Albumin Globulin Ratio 1.3 (1.0-2.8); Alkaline Phosphatase 168 U/L (38-126); Aspartate Aminotransferase 51 IU/L (17-59); BUN Creatinine Ratio 27.1 (6-22); Bilirubin Total 0.9 mg/dL (0.2-1.3); Bilirubin Unconjugated 0.7 mg/dL (0.0-1.1); Blood Urea Nitrogen 19 mg/dL (9-20); Calcium 9.2 mg/dL (8.4-10.2); Carbon Dioxide 31 mmol/L (22-32); Chloride 100 mmol/L (98-107); Cholesterol 168 mg/dL (140-199); Estimated Glomerular Filt Rate > 60.0 mL/min (>60); Globulin 3.1 g/dL (1.7-4.1); Glucose 107 mg/dL (80-110); HDL Cholesterol 46 mg/dL (40-60); HEMOLYSIS < 15 (0-50); LDL Cholesterol Calculated 103 mg/dL (<100); Magnesium 2.2 mg/dL (1.6-2.3); Potassium 3.8 mmol/L (3.4-5.1); Sodium 138 mmol/L (137-145); Total Protein 7.1 g/dL (6.3-8.2); Triglycerides 96 mg/dL (35-150)
[2020-07-10 05:46] LABS: TSH w/ Reflex to FT4 2.14 uIU/mL (0.47-4.68)
--- NOTE | 2020-07-10 09:15 | PT.IIE ---
Surgical History (Last Reviewed 07/09/20 @ 18:48 by Vinod Rodríguez DO) H/O local excision of skin lesion Medical History (Last Reviewed 07/09/20 @ 18:48 by Vinod Rodríguez DO) Chickenpox (~1944) Colon polyps Elevated blood pressure reading Measles (~1945) Skin cancer (2015) Physical Therapy Inpatient Evaluation/Re-Eval M1 PT/OT-IP Prior Functional Status Start: 07/10/20 11:00 Freq: NEEDED Status: Active Protocol: Document 07/10/20 09:15 AB (Rec: 07/10/20 11:14 AB [email or web address]) Medical Review Prior Functional Status Medical History Reviewed Yes Communication able to make needs known; with confusion Mobility and Gait stated that he has been falling at home and just completed his PT and that PT stated he does not need anymore PT. stated that he is modified independent with all mobilities and ambulation using SPC. Social History Household Members spouse Living Arrangements House Number of Floors (Floors) Two Floors Number of Stairs To Enter/Railing? has 2 flights of steps with bilateral rails to enter has 4 steps B rails + 4 steps with 1 rail to bedroom level Home Environment Standard Height Toilet,Walk in Shower,Tub/Shower Home Equipment Front Wheel Walker,Straight Cane M2 PT-IP Current Condition Start: 07/10/20 11:00 Freq: NEEDED Status: Active Protocol: Document 07/10/20 09:15 AB (Rec: 07/10/20 11:14 AB [email or web address]) Physical Therapy Current Condition Current Condition Evaluation Date 07/10/20 Treatment Diagnosis Fall; CVA; difficulty in walking Onset Date 07/09/20 Precautions Other Precautions falls M3 PT-IP Subjective Start: 07/10/20 11:00 Freq: NEEDED Status: Active Protocol: Document 07/10/20 09:15 AB (Rec: 07/10/20 11:14 AB [email or web address]) Subjective Physical Therapy Visit Type Type Initial Evaluation Visit Start Time 09:15 Visit Stop Time 09:54 Total Visit Minutes 39 Number of CHEMISTRY ASSOCIATE Visits 0 Physical Therapy Visit Comments Patient Comments agreeable to do PT Therapy Pain Assessment Pain Present Pain Present Denied Pain M4 PT-IP Mobility and Gait Start: 07/10/20 11:00 Freq: NEEDED Status: Active Protocol: Document 07/10/20 09:15 AB (Rec: 07/10/20 11:14 [email or web address]) PT-Bed Mobility Assessment Supine to Sit Supine to Sit Standby Assistance Sit to Supine Sit to Supine Standby Assistance PT-Transfer Assessment Sit to and From Stand Sit to and from Stand Maximum Assistance,1 Person Assistance,Use of Upper Extremities Equipment Transfer Assistive Device Gait Belt,Front Wheeled Walker Orthotic/Prosthetic Devices or Brace: No Transfers Transfer Destination Bed,Chair Transfer Technique Stand Step Pivot Transfer Ability Level of Assist Maximum Assistance,Use of Upper Extremities Comments Mobility Comments pt sitting on chair. pt with confusion but able to follow directions. completed sit to stand max A and max cues with increase posterior trunk lean requiring max A for balance. educated pt on COG and use of FWW for support. completed step transfer to bed using FWW max A and cues. completed supine <>sit SBA. completed sit to stand from bed mod to max A and max cues and ambulated in room using FWW ~ 10 ft with mod to max A and max cues. has increase bilateral knee flexion towards end of ambulation requiring max A and max cues for upright posture. positioned pt back to chair. call light and table placed within reach. chair alarm on. Gait Assessment Gait Gait Assistance Required: Moderate Assistance,Maximum Assistance,1 Person Assist Distance (Feet) 10 Assistive Devices Assistive Device Gait Belt,Front Wheeled Walker Orthotic/Prosthetic Devices or Brace: No Gait Deviations General Gait Pattern Antalgic,Decreased Stride Length,Decreased Feet Clearance,Flexed Trunk,Step-to Gait Factors Limiting Gait Function Factors Limiting Gait Function Decreased Activity Tolerance, Decreased Strength,Difficulty Following Directions, Incoordination,Limited Range of Motion,Poor Balance,Poor Safety Awareness PT-Balance Assessment Sitting Balance and Reactions Static Sitting Balance Ability Good Dynamic Sitting Balance Ability Good Standing Balance and Reactions Static Standing Balance Ability Poor Dynamic Standing Balance Ability Poor Device Used FWW M5 PT-IP Objective Assessments Start: 07/10/20 11:00 Freq: NEEDED Status: Active Protocol: Document 07/10/20 09:15 (Rec: 07/10/20 11:14 [email or web address]) Orientation Orientation/Cognition Level of Alertness Confusional State Orientation Name,Place Safety Awareness Decreased Safety Awareness Memory Description Short Term Impaired Gross Range of Motion Lower Extremity ROM Assessment Within Functional Limits Strength Lower Extremity Strength Hip 4-/5 Knee 4-/5 Muscle Tone Muscle Tone WNL Yes M6 PT-IP Treatment Start: 07/10/20 11:00 Freq: NEEDED Status: Active Protocol: Document 07/10/20 09:15 AB (Rec: 07/10/20 11:14 AB [id number]) Physical Therapy Treatment Education Education Provided Safety M7 PT-IP Assessment and Plan Start: 07/10/20 11:00 Freq: NEEDED Status: Active Protocol: Document 07/10/20 09:15 AB (Rec: 07/10/20 11:14 AB [id number]) PT Summary Assessment and Plan Potential Rehabilitation Potential Good Status of Condition at Evaluation Evolving Summary Impairments Pain,ROM,Strength,Balance, Coordination,Sensation,Tone, Cognition,Bed Mobility, Transfers,Gait,Activity Tolerance Assessment Summary pt requiring mod to max A with all mobilities using FWW for ambulation. pt will benefit from acute rehab vs SNF rehab to improve strength, balance and mobility independence prior to d/c. will conduct caregiver training if appropriate. will continue to assess progress. Goals Bed Mobility Goal Independent Transfer Goal Standby Assistance,Front Wheeled Walker Gait Goal Standby Assistance,Front Wheel Walker Gait Distance 200 Other Goals up/down 2 flights of steps B rails; 4 steps 1 rail SBA Days to Meet Goals 10 Frequency of Treatment Frequency Of Treatment Twice a Day Treatment Plan Physical Therapy Treatment Plan Bed Mobility Training,Transfer Training,Gait Training, Therapeutic Exercise,Balance Retraining,Post Op Education, Discharge Planning,Hot or Cold Pack,Neuromuscular Re-ed, Coordination Retraining,Manual Therapy Other Recommendations and Next Treatment standing balance, ambulation Focus Recommendations To Nursing Amount of Assist Needed 2 Person Assist Discharge Recommendations PT Discharge Recommendations SNF Rehab,Acute Rehab Transportation Needs at Discharge Private Vehicle,Wheelchair/ Cabulance
[2020-07-10] MEDS: lisinopriL 10 MG TABLET PO (10:10)
[2020-07-10] MEDS: LORazepam 2 MG/ML INJ 0.5 MG IV (10:10)
[2020-07-10] MEDS: APIXABAN 5 MG TABLET PO (10:11)
[2020-07-10] MEDS: SODIUM CHLORIDE 0.9% FLUSH 10 ML IV ×2 (10:11→20:12)
[2020-07-10] MEDS: FINASTERIDE 5 MG TABLET PO (10:11)
--- NOTE | 2020-07-10 10:38 | CM.DANOTE ---
Addendum entered by Savana Lester LPN 07/10/20 14:48: Dr. Rodríguez states that current diagnosis appears to be a TIA with pt going down and worsening during his week on the floor. Have put in a referral to [facility] as a back up as different snfs do seem to have varying criteria that they look at in terms of ability to skill pts appropriately under Medicare. A voice mail if left now to update Kristina. Addendum entered by Savana Lester LPN 07/10/20 14:19: Anika: [facility] has called back. They can accept pt at d/c if snf is needed BUT will need a diagnosis that that will allow them to bill Medicare. She notes is it clear that pt is far from baseline and needs therapy but Medicare will not cover this with the documentation currently in placed. Dr. Rodríguez is updated. Addendum entered by Savana Lester LPN 07/10/20 13:11: [facility] confirms admission status now as INPT: as of admission on 07/09. Have now had long phone conversation with Kristina. Introduced self and role. Kristina states that prior to the fall, I found him on the floor and I do not know how he actually fell her was functioning independently with basic mobility and ADLs. Uses a single point cane. She reports he has some slight memory loss but was essentially alert and oriented. She reports that her was unable to get up off the floor and that he was terrified of going to the hospital because of the virus. It took me a week to convince him to let me call 911. Pt plans to only visit pt if she must. She says she also is 84 and worried about the virus. She will be available by her home phone: [phone]. She says she has a cell but only uses it in an emergency and thus is not a good number. Dr. Rodríguez and [facility] Smith are updated. Her son Terrell Morales does live in [place]: [phone]. She says he is aware that pt is in the hospital and the events at home of the last week. PT is currently recommending snf stay. Discussed this. She says her will likely refuse this plan but also says caring for him like we did the last week is impossible. SNF setting and including COVID precautionary processes is discussed. Agency list: discussed. Kristina is agreeable to referral to [facility] as is the only one in [place]. Referral: to December: she is reviewing. Assured Kristina that this would be discussed with her . Did let Kristina know that a d/c could be as early as . Met then with pt as planned. He was dozing over his lunch and had to be roused for conversation. Briefly explained above with emphasis on Dr. Rodríguez and the therapy team recommending snf rehab at this point. Said his has ok'd putting his name on pending list for [facility]. Assured him that they had no COVID + patients at this time and that his Medicare would cover the care. Emphasized that the stay would only be until he recovered enough to go back home with his . as backup, did ask Kristina to talk all this over with her son to see if he could possibly come to their home and help out. PT today did ambulate 10 ft with PT but certainly remains far from his apparent baseline. P: ? snf: [facility] is reviewing. ? home with perhaps son's care and HH. DCP team will be following closely. Addendum entered by Savana Lester LPN 07/10/20 11:00: Of note: ER physician Lenny Keith and Hospitalist Eladio Rodríguez both put in consults to [employer] yesterday. Original Note: Discharge Planning/Care Management DCP: assessment: case received, EMR reviewed and went to room to check in with pt. He was in process of leaving his room via w/c for an MRI. Pt is an 84 year old male who admitted last evening to care of hospitalist team. PCP: listed as [facility]. Unclear at this time if this is current. Payer: Medicare and AARP Admission status: [facility] states is currently INPT but this is still in review and has been sent on to EHR/[employer] process for further review. Full dx and POC are currently in process. PT and OT are ordered. Attempted to call pt's Kristina at only listed #: [phone] but this rings multiple times with no answer and no ability to leave a message. Son Terrell is listed on face sheet but with no contact information. Have checked in with RN Sarah Mccarty, caring for pt today. She will alert DCP team is any family come in today or call. Documentation indicates that pt had an abrubt change of condition a week ago and has been basically bedbound, with mattress on floor so he would not fall and cared for by his . Anticipate there is much more to all of this. DCP team will follow as per above. DC disposition will in part be influenced by the admission status and pt's needs once he works with therapy team. CM Discharge Assessment Start: 07/10/20 10:38 Freq: Status: Active Protocol: Document 07/10/20 10:38 ITV (Rec: 07/10/20 10:38 ITV [id number]) Discharge Planning Assessment Advance Directives? Yes History Provided By Medical Record Prior Living Arrangements House Household Members spouse Review Status In Process
--- NOTE | 2020-07-10 10:56 | PM.PN.1 ---
Subjective Subjective Date Patient Seen: 07/10/20 Time Patient Seen: 10:56 Interval history: Fredrick Morales is an 84 year old male with PMH of BPH who presented to the emergency room with frequent falls. He was admitted over concern for an acute CVA given focal deficits on exam, stroke scale of 2 and a possible subacute CVA on CT imaging. MRI today did not show evidence of acute infarcts, however he has been recommended for SNF as he is a 2 person assist now as opposed to independent with cane at baseline. Has possible atrial fibrillation based on telemetry, however not definitive given baseline artifact and unable to capture on EKG. Initially started on apixaban yesterday, but seemingly less likely atrial fibrillation upon further review and no acute CVA. Will treat as TIA given focal findings on initial exam with asa and lipitor therapy. Exam Vital Signs (past 8 hours): - 07/10/20 04:59 07/10/20 05:00 07/10/20 08:00 Temperature 98.0 F 98.4 F Pulse Rate 73 68 Respiratory Rate 17 16 Blood Pressure 138/83 131/67 Pulse Oximetry 95 95 94 Oxygen Delivery Method Room Air Oxygen Flow Rate 0 Narrative Exam Narrative: GENERAL APPEARANCE: Well developed, well nourished, in no acute distress. SKIN: Inspection of the skin reveals no rashes or petechiae. There is a right hip stage I decubitus ulcer. HEENT: Normocephalic atraumatic, extraocular muscles are intact, oropharynx is clear and mucous membranes are moist, neck is supple without adenopathy NECK: Supple and symmetric. There was no thyroid enlargement, and no tenderness, or masses were felt. CHEST: Normal AP diameter and normal contour without any kyphoscoliosis. LUNGS: Auscultation of the lungs revealed no wheezes, rhonchi, or rales. CARDIOVASCULAR: There was a regular rate and rhythm without any murmurs, gallops, rubs. Peripheral pulses were 2+ and symmetric. ABDOMEN: Soft and nontender with normal bowel sounds. No ascites was noted. MUSCULOSKELETAL: There was no tenderness or effusions noted. Muscle strength and tone were normal. EXTREMITIES: No cyanosis, clubbing or edema. NEUROLOGIC: Alert and oriented x 3. Normal affect, but mild cognitive impairment. NIH stroke scale now 0. Cranial nerves 2-12 grossly intact bilaterally. Sensation to light touch is intact bilaterally. Objective Imaging MRI - head: Radiologist's impression: IMPRESSION: BRAIN MRI: 1. No acute intracranial abnormalities. No findings to suggest acute stroke. 2. Multiple foci of periventricular white matter T2 hyperintensity with configuration resembling [place] fingers. The finding suggests a demyelinating process such as multiple sclerosis. A differential diagnosis is chronic small vessel ischemic change. Recommend clinical correlation. 3. Moderate a cerebral volume loss. Ventricular prominence is most likely secondary to central atrophy. A differential diagnosis is normal pressure hydrocephalus. Recommend clinical correlation. If clinically indicated, radionuclide ventriculography may be helpful. BRAIN MR ANGIOGRAM: 1. No high-grade stenosis or occlusion in anterior or posterior circulations. NECK MR ANGIOGRAM: 1. Widely patent carotid arteries bilaterally with no significant focal stenosis. 2. Moderate stenosis (50%) of the right mid vertebral artery. Labs Result Diagrams: 07/10/20 04:45 07/10/20 04:45 Labs: Laboratory Results - last 24 hr 07/09/20 07/09/20 07/09/20 14:02 14:02 14:02 WBC 6.0 RBC 4.74 Hgb 15.3 Hct 45.4 MCV 95.9 MCH 32.4 MCHC 33.7 RDW 15.2 H Plt Count 221 Neut % (Auto) 75.0 Lymph % (Auto) 8.6 L [place] % (Auto) 13.4 Eos % (Auto) 2.5 Baso % (Auto) 0.5 Neut # (Auto) 4500 Lymph # (Auto) 500 L [place] # (Auto) 800 Eos # (Auto) 200 Baso # (Auto) 0 Sodium 137 Potassium 4.0 Chloride 106 Carbon Dioxide 23 BUN 18 Creatinine 0.55 L Estimated GFR > 60.0 BUN/Creatinine Ratio 32.7 H Glucose 96 Hemoglobin A1c Calcium 9.2 Magnesium 2.1 Total Bilirubin 0.9 Conjugated Bilirubin Unconjugated Bilirubin AST 78 H ALT 53 H Alkaline Phosphatase 150 H Total Creatine Kinase Cancelled 275 H Troponin I < 0.012 NT-Pro-B Natriuret Pep 236 Total Protein 6.9 Albumin 3.8 Globulin 3.1 Albumin/Globulin Ratio 1.2 Triglycerides Cholesterol LDL Cholesterol, Calc HDL Cholesterol Procalcitonin TSH Urine Color Urine Appearance Urine pH Ur Specific Collins Urine Protein Urine Glucose (UA) Urine Ketones Urine Occult Blood Urine Nitrate Urine Bilirubin Urine Urobilinogen Ur Leukocyte Esterase Urine RBC Urine WBC Urine Bacteria WBC Casts Ur Culture Indicated? COVID-19 PCR 07/09/20 07/09/20 07/09/20 14:02 14:17 17:29 WBC RBC Hgb Hct MCV MCH MCHC RDW Plt Count Neut % (Auto) Lymph % (Auto) [place] % (Auto) Eos % (Auto) Baso % (Auto) Neut # (Auto) Lymph # (Auto) [place] # (Auto) Eos # (Auto) Baso # (Auto) Sodium Potassium Chloride Carbon Dioxide BUN Creatinine Estimated GFR BUN/Creatinine Ratio Glucose Hemoglobin A1c Calcium Magnesium Total Bilirubin Conjugated Bilirubin Unconjugated Bilirubin AST ALT Alkaline Phosphatase Total Creatine Kinase Troponin I NT-Pro-B Natriuret Pep Total Protein Albumin Globulin Albumin/Globulin Ratio Triglycerides Cholesterol LDL Cholesterol, Calc HDL Cholesterol Procalcitonin < 0.05 TSH Urine Color Yellow Urine Appearance Clear Urine pH 5.0 Ur Specific [place] 1.020 Urine Protein Negative Urine Glucose (UA) Negative Urine Ketones 1+ H Urine Occult Blood Trace-intact Urine Nitrate Negative Urine Bilirubin Negative Urine Urobilinogen 0.2 Ur Leukocyte Esterase Negative Urine RBC 1-5/hpf Urine WBC 5-10/hpf H Urine Bacteria None seen WBC Casts 1-5/lpf H Ur Culture Indicated? Specimen cultured COVID-19 PCR Negative 07/10/20 07/10/20 07/10/20 04:45 04:45 04:45 WBC 6.2 RBC 4.88 Hgb 15.7 Hct 47.3 MCV 96.9 MCH 32.3 MCHC 33.3 RDW 15.4 H Plt Count 231 Neut % (Auto) 66.8 Lymph % (Auto) 14.0 L [place] % (Auto) 15.5 H Eos % (Auto) 2.7 Baso % (Auto) 1.0 Neut # (Auto) 4200 Lymph # (Auto) 900 L [place] # (Auto) 1000 H Eos # (Auto) 200 Baso # (Auto) 100 Sodium 138 Potassium 3.8 Chloride 100 Carbon Dioxide 31 BUN 19 Creatinine 0.70 Estimated GFR > 60.0 BUN/Creatinine Ratio 27.1 H Glucose 107 Hemoglobin A1c 5.6 Calcium 9.2 Magnesium 2.2 Total Bilirubin 0.9 Conjugated Bilirubin 0.0 Unconjugated Bilirubin 0.7 AST 51 ALT 49 Alkaline Phosphatase 168 H Total Creatine Kinase Troponin I NT-Pro-B Natriuret Pep Total Protein 7.1 Albumin 4.0 Globulin 3.1 Albumin/Globulin Ratio 1.3 Triglycerides 96 Cholesterol 168 LDL Cholesterol, Calc 103 H HDL Cholesterol 46 Procalcitonin TSH Urine Color Urine Appearance Urine pH Ur Specific Collins Urine Protein Urine Glucose (UA) Urine Ketones Urine Occult Blood Urine Nitrate Urine Bilirubin Urine Urobilinogen Ur Leukocyte Esterase Urine RBC Urine WBC Urine Bacteria WBC Casts Ur Culture Indicated? COVID-19 PCR 07/10/20 04:45 WBC RBC Hgb Hct MCV MCH MCHC RDW Plt Count Neut % (Auto) Lymph % (Auto) [place] % (Auto) Eos % (Auto) Baso % (Auto) Neut # (Auto) Lymph # (Auto) [place] # (Auto) Eos # (Auto) Baso # (Auto) Sodium Potassium Chloride Carbon Dioxide BUN Creatinine Estimated GFR BUN/Creatinine Ratio Glucose Hemoglobin A1c Calcium Magnesium Total Bilirubin Conjugated Bilirubin Unconjugated Bilirubin AST ALT Alkaline Phosphatase Total Creatine Kinase Troponin I NT-Pro-B Natriuret Pep Total Protein Albumin Globulin Albumin/Globulin Ratio Triglycerides Cholesterol LDL Cholesterol, Calc HDL Cholesterol Procalcitonin TSH 2.14 Urine Color Urine Appearance Urine pH Ur Specific Collins Urine Protein Urine Glucose (UA) Urine Ketones Urine Occult Blood Urine Nitrate Urine Bilirubin Urine Urobilinogen Ur Leukocyte Esterase Urine RBC Urine WBC Urine Bacteria WBC Casts Ur Culture Indicated? COVID-19 PCR PFSH Medical History Chickenpox (~1944) Colon polyps Elevated blood pressure reading Measles (~1945) Skin cancer (2014) Surgical History H/O local excision of skin lesion Family History Father No problems noted. Mother No problems noted. Grandfather No problems noted. Social History household members: spouse Smoking Status: Former smoker alcohol intake: current Assessment & Plan Assessment & Plan narrative: Fredrick Morales is an 84 year old male with PMH of BPH who presented to the emergency room with frequent falls, he is admitted with likely TIA based on presentation and MRI findings. Acute weakness likely secondary to 1. TIA, acute, present on admission, resolved. -patient presented with inability to walk over the past 2 weeks after a fall at home. Imaging negative for acute fracture and his pain is improving. CT head without contrast performed in the emergency room shows a possible right basal ganglion infarct which correlated with findings on exam of left lower extremity weakness and ataxia on admission exam. However MRI today read as no acute intracranial abnormalities with no findings to suggest acute stroke and deficits seemingly resolved. -have started asa and lipitor for TIA. -TTE pending -some concern for possible afib initially on tele, however not definitive given baseline artifact upon further review and unable to capture any atrail fibrillation with multiple EKGs. Initially started on apixaban, however will reduce to aspirin for TIA treatment today given MRI findings and unconfirmed diagnosis. -patient is much diminished from baseline, possibly from being immobile for 1 week at home. PT recommending SNF, will continue PT and determine best disposition either SNF or home with home health. -further possibilities include a hypertensive encephalopathy based on admission blood pressures with SBP >180 which is now improved with lisinopril therapy. 2. Acute cystitis, present on admission - will start ceftriaxone 1 g q24 hours. Patient reports urinary frequency, UA with 5-10 WBC and WBC casts, sent for culture but culture is without growth. Acute cystitis may, but seemingly unlikely, explain some difficulties with cognition on admission. 3. BPH, chronic - continue home finasteride. 4. Hypertension, chronic - have started lisinopril, now normotensive. Will continue to monitor. 5. Elevated transaminase levels, present on admission, resolved - likely secondary to mild muscle breakdown from being immobilized for the past week per report. Improved today. 6. Suspected cognitive impairment, present on admission - OT as noted above. decision making is questionable as patient unable to walk at home for approximately one week but upon further questioning he was not wanting to come in over COVID concerns. He is more alert and cognisant today compared to yesterday. [employer]CH[employer] consultation ordered. MRI findings showing evidence of chronic small vessel disease. 7. Stage I decubitus ulcer, acute, present on admission - continue wound care per nursing staff. Code: Full, he states he has an advance care directive, surrogate decision maker is his Dispo: Anticipated discharge to SNF or home with home health pending further PT evaluation. DVT: Lovenox daily Quality VTE Deep Vein Thrombosis/Pulmonary Embolism Present on Admission: No
--- NOTE | 2020-07-10 13:30 | PT.IPTN ---
Physical Therapy Treatment Note M2 PT-IP Current Condition Start: 07/10/20 11:00 Freq: NEEDED Status: Active Protocol: Document 07/10/20 09:15 AB (Rec: 07/10/20 11:14 AB [email or web address]) Physical Therapy Current Condition Current Condition Evaluation Date 07/10/20 Treatment Diagnosis Fall; CVA; difficulty in walking Onset Date 07/09/20 Precautions Other Precautions falls M3 PT-IP Subjective Start: 07/10/20 11:00 Freq: NEEDED Status: Active Protocol: Document 07/10/20 13:30 AB (Rec: 07/10/20 15:20 AB [email or web address]) Subjective Physical Therapy Visit Type Type Treatment Note Visit Start Time 13:30 Visit Stop Time 13:46 Total Visit Minutes 16 Number of MATHEMATICS DEPARTMENT CHAIR Visits 0 Physical Therapy Visit Comments Patient Comments pt agreed to do PT but stated why he needs PT since he just finished one before hospitalization M4 PT-IP Mobility and Gait Start: 07/10/20 11:00 Freq: NEEDED Status: Active Protocol: Document 07/10/20 13:30 AB (Rec: 07/10/20 15:20 AB [email or web address]) PT-Transfer Assessment Sit to and From Stand Sit to and from Stand Maximum Assistance,1 Person Assistance,Use of Upper Extremities Equipment Transfer Assistive Device Gait Belt,Large Based Quad Cane Orthotic/Prosthetic Devices or Brace: No Transfers Transfer Destination Bed Transfer Technique ambulated using FWW Transfer Ability Level of Assist Maximum Assistance,1 Person Assistance,Use of Upper Extremities Comments Mobility Comments completed sit to stand max A and max cues. pt have more difficulty following directions this afternoon and has increase posterior trunk LOB requiring max A for steadiness. educated again for COG but pt continues to require max A. ambulated in room using FWW max A and max cues. presents with increase knee flexion, dragging gait. pt with uncontrolled descent to EOB requiring max A for safety. completed sit to supine mod A and cues. positioned in bed. required max A for scooting to HOB as pt has difficulty following directions. call light and table placed within reach. Gait Assessment Gait Gait Assistance Required: Maximum Assistance,1 Person Assist Distance (Feet) 12 Able to Maintain Weight Bearing Status Yes During Gait Assistive Devices Assistive Device Gait Belt,Front Wheeled Walker Orthotic/Prosthetic Devices or Brace: No Gait Deviations General Gait Pattern Ataxic,Decreased Stride Length ,Decreased Feet Clearance,Step -to Gait Factors Limiting Gait Function Factors Limiting Gait Function Decreased Activity Tolerance, Decreased Strength,Difficulty Following Directions, Incoordination,Poor Balance, Poor Safety Awareness Comments Gait Comments pls refer to mobility section for details M5 PT-IP Objective Assessments Start: 07/10/20 11:00 Freq: NEEDED Status: Active Protocol: Document 07/10/20 09:15 AB (Rec: 07/10/20 11:14 AB [email or web address]) Orientation Orientation/Cognition Level of Alertness Confusional State Orientation Name,Place Safety Awareness Decreased Safety Awareness Memory Description Short Term Impaired Gross Range of Motion Lower Extremity ROM Assessment Within Functional Limits Strength Lower Extremity Strength Hip 4-/5 Knee 4-/5 Muscle Tone Muscle Tone WNL Yes M6 PT-IP Treatment Start: 07/10/20 11:00 Freq: NEEDED Status: Active Protocol: Document 07/10/20 13:30 AB (Rec: 07/10/20 15:20 AB [email or web address]) Physical Therapy Treatment Education Education Provided Safety M7 PT-IP Assessment and Plan Start: 07/10/20 11:00 Freq: NEEDED Status: Active Protocol: Document 07/10/20 13:30 AB (Rec: 07/10/20 15:20 AB [email or web address]) PT Summary Assessment and Plan Potential Rehabilitation Potential Fair Summary Impairments Pain,ROM,Strength,Balance, Coordination,Sensation,Tone, Cognition,Bed Mobility, Transfers,Gait,Activity Tolerance Progress Towards Goals Slow Progress due to Medical Issues,Slow Progress due to Activity Tolerance,Slow Progress - Other Assessment Summary pt requiring more assistance this afternoon and has more difficulty following directions. pt requires max A with sit to stand and ambulation using FWW, max cues with all tasks. pt will require SNF vs acute rehab to improve strength and mobility. Goals Bed Mobility Goal Independent Transfer Goal Standby Assistance,Front Wheeled Walker Gait Goal Standby Assistance,Front Wheel Walker Gait Distance 200 Other Goals up/down 2 flights of steps B rails; 4 steps 1 rail SBA Days to Meet Goals 10 Frequency of Treatment Frequency Of Treatment Twice a Day Treatment Plan Physical Therapy Treatment Plan Bed Mobility Training,Transfer Training,Gait Training, Therapeutic Exercise,Balance Retraining,Post Op Education, Discharge Planning,Hot or Cold Pack,Neuromuscular Re-ed, Coordination Retraining,Manual Therapy Other Recommendations and Next Treatment standing balance, ambulation Focus Recommendations To Nursing Amount of Assist Needed 2 Person Assist Discharge Recommendations PT Discharge Recommendations SNF Rehab,Acute Rehab Transportation Needs at Discharge Private Vehicle,Wheelchair/ Cabulance
--- NOTE | 2020-07-10 14:29 | PC.NURSE ---
PT HIGH FALL RISK- HE DOES NOT ATTEMPT TO GET UP FROM CHAIR OR BED UNASSISTED BUT DOES REQUIRE 2 PERSON FOR MOST TRANSFERS - HE IS NEGLIGENT OF LEFT SIDE WORSE ON LLE THAN LUE- SLIGHT FACIAL DROOP NOTED- ABLE TO TAKE DIET WELL AND TOLERATE THIN LIQUIDS- LOW URINE OUTPUT THIS SHIFT- MD AWARE AND ASKED STAFF TO ENCOURAGE FLUIDS- SALINE LOCKED AT THIS TIME
--- NOTE | 2020-07-10 15:49 | OT.IP.EVAL ---
Past Medical History (Last Reviewed 07/09/20 @ 18:48 by Vinod Rodríguez DO) Chickenpox (~1944) Colon polyps Elevated blood pressure reading Measles (~1945) Skin cancer (2015) Surgical History (Last Reviewed 07/09/20 @ 18:48 by Vinod Rodríguez DO) H/O local excision of skin lesion Occupational Therapy Inpatient Evaluation/Re-Eval M1 PT/OT-IP Prior Functional Status Start: 07/10/20 15:59 Freq: NEEDED Status: Active Protocol: Document 07/10/20 14:55 [facility] (Rec: 07/10/20 16:22 [facility] [id number]) Medical Review Prior Functional Status Medical History Reviewed Yes Communication able to make needs known; with confusion Mobility and Gait stated that he has been falling at home and just completed his PT and that PT stated he does not need anymore PT. stated that he is modified independent with all mobilities and ambulation using SPC. Activities of Daily Living and IADL's Pt states has been able to do basic ADl's and assist at home to cook at times and take out the garbage. 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 Social History Household Members spouse Living Arrangements House Number of Floors (Floors) Two Floors Number of Stairs To Enter/Railing? has 2 flights of steps with bilateral rails to enter has 4 steps B rails + 4 steps with 1 rail to bedroom level Home Environment Standard Height Toilet,Walk in Shower,Tub/Shower Home Equipment Front Wheel Walker,Straight Cane M2 OT-IP Current Condition Start: 07/10/20 15:59 Freq: Status: Active Protocol: Document 07/10/20 14:55 [facility] (Rec: 07/10/20 16:22 [facility] [id number]) Occupational Therapy Current Condition Current Condition Evaluation Date 07/10/20 Treatment Diagnosis TIA, decreased mobility,fall Diagnosis Onset Date 07/09/20 M3 OT- IP Subjective and Pain Start: 07/10/20 15:59 Freq: Status: Active Protocol: Document 07/10/20 14:55 [facility] (Rec: 07/10/20 16:22 [facility] [id number]) OT- Subjective Occupational Therapy Visit Type Type Initial Evaluation Visit Start Time 14:55 Visit Stop Time 15:49 Total Visit Minutes 54 Occupational Therapy Visit Comments Patient Comments Pt agreed to get up for OT eval. Patient/Caregiver Goals TO go home. OT Pain Assessment Pain When Pain Assessed At Rest Pain Present Pain Present Denied Pain M4 OT- IP ADL's Start: 07/10/20 15:59 Freq: Status: Active Protocol: Document 07/10/20 14:55 [facility] (Rec: 07/10/20 16:22 [facility] [id number]) OT [id number] Comments OT Self-Feeding Comments NOt at meal time. OT ADL-Grooming General Evaluation Grooming Ability Standby Assistance Areas Needing Assistance Retrieving/Set-up of Grooming Items Comments OT Grooming Comments VC for location of items in front of him on the tray table . OT ADL-Oral Care General Eval Oral Care Ability Standby Assistance OT ADL-Dressing General Eval Lower Body Dressing Ability Maximum Assistance Areas Needing Assistance Socks OT ADL-Toileting Comments OT Toileting Comments Pt not having to use the bathroom at the time. OT ADL-Bathing Comments OT Bathing Comments Not performed. M5 OT- IP IADL's Start: 07/10/20 15:59 Freq: Status: Active Protocol: Document 07/10/20 14:55 [facility] (Rec: 07/10/20 16:22 [id number] OT-Instrumental Activities of Daily Living Home Safety Awareness Awareness of Need for Assistance at Home Decreased Awareness Ability to Problem Solve Emergency Able to Problem Solve Situations Home Safety Comments Pt able to accurately answer all home safety questions with good accuracy. Medication Management Medication Management Comments Pt a bit confused, having word finding, memory difficulties and balance issues and at this time would be best to have assist. Money Management Money Management Comments Pt a bit confused, having word finding, memory difficulties and balance issues and at this time would be best to have assist. Meal Preparation Meal Preparation Comments Pt a bit confused, having word finding, memory difficulties and balance issues and at this time would be best to have assist. Audio Visual Equipment Rental Clerk Audio Visual Equipment Rental Clerk Comments Pt a bit confused, having word finding, memory difficulties and balance issues and at this time would be best to have assist. M6 OT- IP Functional Cognition Start: 07/10/20 15:59 Freq: Status: Active Protocol: Document 07/10/20 14:55 [facility] (Rec: 07/10/20 16:22 [facility] [id number]) Cognitive Factors Limiting Selfcare Function Cognitive Ability Level of Alertness Alert,Confusional State Patient Orientation Name,Year,Place Attention Span Ability Capable of Focused Attention, Unable to Sustain Attention Ability to Follow Commands Able to Follow One Step Commands with Increased Time, Able to Follow One Step Commands with Repetition Memory Description Short Term Impaired,Working Impaired Safety Awareness Underestimates Need for Assistance Problem Solving Ability Unable to Identify Errors, Needs Assist to Identify Solutions Executive Function Ability Unable to Switch Focus,Unable to Filter Distractions,Unable to Make Plans,Unable to Organize Plans,Unable to Remember Details Cognitive Tests SLUMS Pt scored 7/30 and normal score for pt's level of education is 27/30. pt only able to states the year and state correctly, only able to name 4 animals in one minute, and able to states 3 digit number backwards, able to draw an x on the triangle and identify that the square was the largest shape, and answer 1/4 questions right after a paragraph read. Pt also drawing in the numbers of the clock backwards.Pt score implies cognitive deficits.and dementia. 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 Pt gave OT permission to contact his to be able to help clarify how the pt was doing prior to this hospitalization. Pt does admit that on one of his falls has hit his head. Cognitive Comments Cognitive Assessment Comments Pt easily distracted, a bit hard of hearing therefore may influence the ability to understand and answer questions. Pt having word finding issues. OT- Vision and Hearing OT- Hearing Assessment OT- Hearing Assessment Hearing Impaired OT- Vision Assessment Vision History Cataracts Vision Assessment Comments Pt having difficulty to follow directions for visual scanning. To further assess. Pt unable to draw line to connect number in sequence, instead of connecting 1 to 2 to 3 to 4 to 5 to 6, pt would draw line backwards from the higher number to lower number. M7 OT- IP Mobility and Balance Start: 07/10/20 15:59 Freq: Status: Active Protocol: Document 07/10/20 14:55 [facility] (Rec: 07/10/20 16:22 [facility] [id number]) OT- Bed Mobility Assessment Rolling Type of Rolling Roll to Right Level of Assistance Standby Assistance,1 Person Assistance,Bedrails Supine to Sit Supine to Sit Assist Contact Guard Assistance, Bedrails Sit to Supine Sit to Supine Assist Minimal Assistance,1 Person Assistance Scooting Scooting to Edge of Bed Moderate Assistance OT-Transfer Assessment Sit to and From Stand Sit to and from Stand Moderate Assistance,Maximum Assistance,1 Person Assistance Comments Mobility Comments IV in left hand bother pt and having difficulty to push on his hand to assist when coming to stand. MOD/MAX A to stand to FWW. VC for hand placement and safety of FWW. Pt able to take some side steps up to the head of the bed with MODA X 1. PRATEEK to help[ get his legs back in bed . OT- Balance Assessment Sitting Balance and Reactions Static Sitting Balance Ability Good Standing Balance and Reactions Static Standing Balance Ability Poor M8 OT- IP Objective Assessments Start: 07/10/20 15:59 Freq: Status: Active Protocol: Document 07/10/20 14:55 [facility] (Rec: 07/10/20 16:22 [id number] OT Gross Range of Motion Upper Extremity Range of Motion ROM Impairments Grossly WFL for needs. OT Strength Comments Strength Comments BUE 4-/5 OT-Muscle Tone Assessment Muscle Tone WNL Yes OT Sensation Assessment Comments Summary Comments Increased time to follow directions and intact for sensation of light touch bilateral hands. M9 OT- IP Assessment and Plan Start: 07/10/20 15:59 Freq: Status: Active Protocol: Document 07/10/20 14:55 [facility] (Rec: 07/10/20 16:22 [facility] [id number]) OT Summary Assessment and Plan Potential Rehabilitation Potential Good Analytic Complexity at Evaluation Low Summary OT Impairments Strength,Balance,Functional Cognition,Functional Mobility, Self-Feeding,Grooming,Dressing ,Toileting,Bathing,Toilet Transfers,Shower Transfers, Activity Tolerance Progress Towards Goals Slow Progress due to Medical Issues,Slow Progress due to Activity Tolerance,Slow Progress due to Cognition Assessment Summary Pt low complexity and here due to TIA and fall and now needing extensive assist for standing and having to use FWW. Pt decreased safety and cognition and far for baseline of being mostly independent with needs with use of SPC. Pt would benefit from skilled rehab prior to going home. Goals Self-Feeding Goal Independent Grooming Goal Independent Dressing Goal Independent Toileting Goal Independent Bathing Goal Independent Toilet Transfer Goal Independent Shower Transfer Goal Independent Patient/Caregiver Education Goal Caregiver Independent Assisting Patient Days to Meet Goals 15 Frequency of Treatment Frequency Of Treatment Once a Day Treatment Plan OT Treatment Plan ADL Training,Functional Cognition Training,Functional Mobility,Patient/Family Education,Discharge Planning Other Treatment Recommendations and Next Pt to be able to do LB Treatment Focus dressing from the edge of the bed with PRATEEK. Discharge Recommendations OT Discharge Recommendations SNF Rehab Home Equipment Needs defer to SNF Transportation Needs at Discharge Wheelchair/Cabulance
[2020-07-10] MEDS: CEFTRIAXONE 1 GM/50 ML FROZ.PIGGY IV (19:09)
[2020-07-10] MEDS: ATORVASTATIN 20 MG TABLET 40 MG PO (20:08)
[2020-07-10] MEDS: SENNOSIDES 8.6 MG TABLET 17.2 MG PO (20:08)
[2020-07-11] VITALS (9 sets, daily range): BP systolic 95–147; BP diastolic 47–75; PULSE 60–83; RESP 18–20; TEMP 36.2–37.1; O2SAT 95–99
[2020-07-11 05:28] LABS: Add Manual Diff / Slide Review NO; Basophils Absolute Auto 0 /uL (0-100); Basophils Percent Auto 0.6 % (0-2); Eosinophils Absolute Auto 200 /uL (0-450); Eosinophils Percent Auto 5.2 % (2-4); Hematocrit 41.3 % (41-53); Lymphocytes Absolute Auto 700 /uL (1100-4500); Lymphocytes Percent Auto 14.2 % (25-40); Mean Corpuscular Hemoglobin 32.8 PG (26-34); Mean Corpuscular Volume 96.6 fL (80-100); Monocytes Absolute Auto 1000 /uL (0-900); Monocytes Percent Auto 21.3 % (3-14); Neutrophils Absolute Auto 2800 /uL (1500-7000); Neutrophils Percent Auto 58.7 % (50-75); Platelet Count 177 X10^3/uL (150-400); Red Blood Cell Count 4.28 X10^6/uL (4.5-5.9); Red Cell Distribution Width 15.5 % (11.6-14.8); White Blood Cell Count 4.8 X10^3/uL (4.5-11.0)
[2020-07-11 05:46] LABS: Alanine Aminotransferase 39 IU/L (<50); Albumin 3.2 g/dL (3.5-5.0); Albumin Globulin Ratio 1.2 (1.0-2.8); Alkaline Phosphatase 128 U/L (38-126); Aspartate Aminotransferase 39 IU/L (17-59); BUN Creatinine Ratio 32.4 (6-22); Bilirubin Total 0.6 mg/dL (0.2-1.3); Bilirubin Unconjugated 0.5 mg/dL (0.0-1.1); Blood Urea Nitrogen 22 mg/dL (9-20); Calcium 8.5 mg/dL (8.4-10.2); Carbon Dioxide 32 mmol/L (22-32); Chloride 100 mmol/L (98-107); Estimated Glomerular Filt Rate > 60.0 mL/min (>60); Globulin 2.6 g/dL (1.7-4.1); Glucose 97 mg/dL (80-110); HEMOLYSIS 35 (0-50); Magnesium 2.1 mg/dL (1.6-2.3); Potassium 3.9 mmol/L (3.4-5.1); Sodium 132 mmol/L (137-145); Total Protein 5.8 g/dL (6.3-8.2)
[2020-07-11] MEDS: lisinopriL 10 MG TABLET PO (09:54)
[2020-07-11] MEDS: ACETAMINOPHEN 325 MG TABLET 650 MG PO (09:54)
[2020-07-11] MEDS: ASPIRIN EC 81 MG TABLET PO (09:54)
[2020-07-11] MEDS: SODIUM CHLORIDE 0.9% FLUSH 10 ML IV ×2 (09:54→20:22)
[2020-07-11] MEDS: FINASTERIDE 5 MG TABLET PO (09:54)
--- NOTE | 2020-07-11 10:54 | CM.DPNOTE ---
Sent clinicals to Aurea Sandoval on 07/11/20. Diamante Zhao CM Asst.
--- NOTE | 2020-07-11 11:27 | PT.IPTN ---
Current Diagnoses Cerebral infarction, unspecified (07/09/20) Physical Therapy Treatment Note M2 PT-IP Current Condition Start: 07/10/20 11:00 Freq: NEEDED Status: Active Protocol: Document 07/10/20 09:15 AB (Rec: 07/10/20 11:14 AB [email or web address]) Physical Therapy Current Condition Current Condition Evaluation Date 07/10/20 Treatment Diagnosis Fall; CVA; difficulty in walking Onset Date 07/09/20 Precautions Other Precautions falls M3 PT-IP Subjective Start: 07/10/20 11:00 Freq: NEEDED Status: Active Protocol: Document 07/11/20 11:27 AB (Rec: 07/11/20 12:39 AB [email or web address]) Subjective Physical Therapy Visit Type Type Treatment Note Visit Start Time 11:27 Visit Stop Time 11:53 Total Visit Minutes 16 Number of BAKERY WORKER CONVE[employer]OR LINE Visits 0 Physical Therapy Visit Comments Patient Comments pt is agreeable to do PT Therapy Pain Assessment Pain Present Pain Present Denied Pain M4 PT-IP Mobility and Gait Start: 07/10/20 11:00 Freq: NEEDED Status: Active Protocol: Document 07/11/20 11:27 AB (Rec: 07/11/20 12:39 AB [id number]) PT-Bed Mobility Assessment Supine to Sit Supine to Sit Maximum Assistance,1 Person Assistance,Head of Bed Elevated Scooting Scooting to Edge of Bed Maximum Assistance PT-Transfer Assessment Sit to and From Stand Sit to and from Stand Maximum Assistance,1 Person Assistance,Use of Upper Extremities Equipment Transfer Assistive Device Gait Belt,Front Wheeled Walker Orthotic/Prosthetic Devices or Brace: No Transfers Transfer Destination Chair Transfer Technique ambulated using FWW Transfer Ability Level of Assist Maximum Assistance,1 Person Assistance,2 Person Assistance ,Use of Upper Extremities Comments Mobility Comments completed supine to sit max A and max cues with HOB elevated . increase posterior trunk lean and lateral lean to the R . required min A to maintain sitting balance on EOB. completed sit to stand max A and max cues for upright posture and steadiness. ambulated in room using FWW ~ 40 ft max A x 1-2 and max cues . increase assistance with turns with LOB requiring max A x1-2and max cues. pt sat on chair. requested to use the urinal. completed sit to stand from chair max A and cues. NAC assisted with urinal use. pt required mod A to maintain standing balance. sat back down with max cues for techniques and safety. completed sit to stand again max A and max cues using FWW for support max A for brief managment and required assist to complete . pt agreed to sit up on chair. postiioned on chair. call light and table placed within reach. chair alarm on Gait Assessment Gait Gait Assistance Required: Maximum Assistance,1 Person Assist,2 Person Assist Distance (Feet) 40 Able to Maintain Weight Bearing Status Yes During Gait Assistive Devices Assistive Device Gait Belt,Front Wheeled Walker Orthotic/Prosthetic Devices or Brace: No Gait Deviations General Gait Pattern Antalgic,Decreased Stride Length,Decreased Feet Clearance,Flexed Trunk,Lateral Trunk Lean,Step-to Gait Factors Limiting Gait Function Factors Limiting Gait Function Decreased Activity Tolerance, Decreased Strength,Difficulty Following Directions,Limited Range of Motion,Pain,Poor Balance,Poor Safety Awareness Comments Gait Comments pt presents with shuffling gait and required max cues to increase LE elevation M5 PT-IP Objective Assessments Start: 07/10/20 11:00 Freq: NEEDED Status: Active Protocol: Document 07/10/20 09:15 AB (Rec: 07/10/20 11:14 AB [id number]) Orientation Orientation/Cognition Level of Alertness Confusional State Orientation Name,Place Safety Awareness Decreased Safety Awareness Memory Description Short Term Impaired Gross Range of Motion Lower Extremity ROM Assessment Within Functional Limits Strength Lower Extremity Strength Hip 4-/5 Knee 4-/5 Muscle Tone Muscle Tone WNL Yes M6 PT-IP Treatment Start: 07/10/20 11:00 Freq: NEEDED Status: Active Protocol: Document 07/11/20 11:27 AB (Rec: 07/11/20 12:39 AB [id number]) Physical Therapy Treatment Education Education Provided Safety M7 PT-IP Assessment and Plan Start: 07/10/20 11:00 Freq: NEEDED Status: Active Protocol: Document 07/11/20 11:27 AB (Rec: 07/11/20 12:39 AB [id number]) PT Summary Assessment and Plan Potential Rehabilitation Potential Fair Summary Impairments Pain,ROM,Strength,Balance, Coordination,Sensation,Tone, Cognition,Bed Mobility, Transfers,Gait,Activity Tolerance Progress Towards Goals Slow Progress due to Medical Issues,Slow Progress due to Activity Tolerance,Slow Progress - Other Assessment Summary pt requiring max A x 1-2 and max cues with all tasks. Had a few LOB during ambulation requiring max A x 1-2 for steadiness and safety . pt will require SNF rehab to improve strength and mobility independence. Goals Bed Mobility Goal Independent Transfer Goal Standby Assistance,Front Wheeled Walker Gait Goal Standby Assistance,Front Wheel Walker Gait Distance 200 Other Goals up/down 2 flights of steps B rails; 4 steps 1 rail SBA Days to Meet Goals 10 Frequency of Treatment Frequency Of Treatment Twice a Day Treatment Plan Physical Therapy Treatment Plan Bed Mobility Training,Transfer Training,Gait Training, Therapeutic Exercise,Balance Retraining,Post Op Education, Discharge Planning,Hot or Cold Pack,Neuromuscular Re-ed, Coordination Retraining,Manual Therapy Other Recommendations and Next Treatment standing balance, ambulation Focus Recommendations To Nursing Amount of Assist Needed 2 Person Assist Discharge Recommendations PT Discharge Recommendations SNF Rehab,Acute Rehab Transportation Needs at Discharge Private Vehicle,Wheelchair/ Cabulance
--- NOTE | 2020-07-11 12:50 | DIET.PN ---
Dietary Progress Note Assessment: 84yo M admitted with likely TIA. Pt has had frequent falls lately and spent the last week on a mattress on the floor after his last fall. Pt?s was bringing him food and a urinal because pt could not get up. Pt does not feel he has had any changes in his appetite recently. Pt feels he is at his normal body weight but thinks he has less muscle now. Pt reports that he chooses a lot of high sodium foods. He specifically mentioned salted popcorn. Pt reports he usually has cheerios for breakfast, ~1.5oz cheese and half an apple in the afternoon and enjoys hamburgers. Pt is unsure of if the foods he eats are high in saturated fat. Pt reports that his does the cooking and he thinks she pays attention to the amount of fat. Pt would like to incorporate exercise but says his house has a lot of stairs and he is unsure what he should/can do. Encouraged pt to mention this desire to PT when they come visit. I had a brief conversation with PT to make aware that pt is interested in this information. HT: 187.96cm WT: 90.7kg UBW: 200# BMI: 25.7 Labs: LDL: 103H , Cr: 0.55L , Total CK: 275H MNA:10@ risk for malnutrition Cj:18 Nutrition Diagnosis: Nutrition related knowledge deficit r/t new experience of TIA aeb patient experienced a TIA, elevated LDL cholesterol 103, pt reporting choosing higher sodium foods, pt unaware of nutritional recommendation related to TIA. Interventions: 1. Limit saturated fat. Educated pt on foods that have saturated fat. Reinforced all education with a handout from [facility]. 2. Choose lower sodium options. Encouraged pt to look for low/ no sodium varieties of foods like his popcorn. 3. Incorporate more fiber in the diet to help reduce cholesterol. 3. Isaias BID to support healing of stage 1 pressure ulcer. Diet Order: LONI
--- NOTE | 2020-07-11 14:21 | PM.PN.1 ---
Subjective Subjective Date Patient Seen: 07/11/20 Time Patient Seen: 14:21 Interval history: Fredrick Morales is an 84 year old male with PMH of BPH who presented to the emergency room with frequent falls. Spoke with the more today who notes a more acute decline in cognition and weakness. States that prior to his recent falls, he was ambulatory with a cane. Patient denies numbness, tingling, weakness today. No chest pain, palpitations, nausea, vomiting, abdominal pain. He is still a 2 person assist with PT. Scored 7/30 on SLUMS testing today with OT. Exam Vital Signs (past 8 hours): - 07/11/20 08:00 07/11/20 12:00 Temperature 98.8 F 98.4 F Pulse Rate 69 76 Respiratory Rate 18 19 Blood Pressure 127/75 117/67 Pulse Oximetry 95 95 Oxygen Delivery Method Room Air Oxygen Flow Rate 0 Narrative Exam Narrative: GENERAL APPEARANCE: Well developed, well nourished, in no acute distress. SKIN: Inspection of the skin reveals no rashes or petechiae. There is a right hip stage I decubitus ulcer now with dressings applied. HEENT: Normocephalic atraumatic, extraocular muscles are intact, oropharynx is clear and mucous membranes are moist, neck is supple without adenopathy NECK: Supple and symmetric. There was no thyroid enlargement, and no tenderness, or masses were felt. CHEST: Normal AP diameter and normal contour without any kyphoscoliosis. LUNGS: Auscultation of the lungs revealed no wheezes, rhonchi, or rales. CARDIOVASCULAR: There was a regular rate and rhythm without any murmurs, gallops, rubs. Peripheral pulses were 2+ and symmetric. ABDOMEN: Soft and nontender with normal bowel sounds. No ascites was noted. MUSCULOSKELETAL: There was no tenderness or effusions noted. Muscle strength and tone were normal. EXTREMITIES: No cyanosis, clubbing or edema. NEUROLOGIC: Alert and oriented x 3. Normal affect, but with cognitive impairment. Cranial nerves 2-12 grossly intact bilaterally. Sensation to light touch is intact bilaterally. Objective Labs Result Diagrams: 07/11/20 04:45 07/11/20 04:45 Labs: Laboratory Results - last 24 hr 07/11/20 07/11/20 04:45 04:45 WBC 4.8 RBC 4.28 L Hgb 14.0 Hct 41.3 MCV 96.6 MCH 32.8 MCHC 34.0 RDW 15.5 H Plt Count 177 Neut % (Auto) 58.7 Lymph % (Auto) 14.2 L [place] % (Auto) 21.3 H Eos % (Auto) 5.2 H Baso % (Auto) 0.6 Neut # (Auto) 2800 Lymph # (Auto) 700 L [place] # (Auto) 1000 H Eos # (Auto) 200 Baso # (Auto) 0 Sodium 132 L Potassium 3.9 Chloride 100 Carbon Dioxide 32 BUN 22 H Creatinine 0.68 Estimated GFR > 60.0 BUN/Creatinine Ratio 32.4 H Glucose 97 Calcium 8.5 Magnesium 2.1 Total Bilirubin 0.6 Conjugated Bilirubin 0.0 Unconjugated Bilirubin 0.5 AST 39 ALT 39 Alkaline Phosphatase 128 H Total Protein 5.8 L Albumin 3.2 L Globulin 2.6 Albumin/Globulin Ratio 1.2 PFSH Medical History Chickenpox (~1944) Colon polyps Elevated blood pressure reading Measles (~1945) Skin cancer (2014) Surgical History H/O local excision of skin lesion Family History Father No problems noted. Mother No problems noted. Grandfather No problems noted. Social History household members: spouse Smoking Status: Former smoker alcohol intake: current Assessment & Plan Assessment & Plan narrative: Fredrick Morales is an 84 year old male with PMH of BPH who presented to the emergency room with frequent falls, he is admitted with a toxic metabolic encephalopathy, TIA, and acute cystitis. 1. Toxic metabolic encephalopathy, acute, present on admission, improving. - suspect multifactorial etiologies at this time. He was more disoriented on admission regarding his recent events and problems with weakness. Over the course of admission, his thinking has somewhat improved, however not back to apparent baseline per his . seems to think his cognition decreased fairly recently. - etiologies include toxic metabolic encephalopathy from acute cystitis, for which he is being treated, TIA, concussion as he did report hitting his head, MRI also suggestive of a possible demyelinating disease vs ischemia. Further evaluation with neurology as an outpatient is recommended. I do suspect a baseline mild dementia given SLUMS testing noted below, possibly vascular dementia or related to above findings on MRI. 2. TIA, acute, present on admission, resolved. -patient presented with inability to walk over the past 2 weeks after a fall at home. Imaging negative for acute fracture and his pain is improving. CT head without contrast performed in the emergency room shows a possible right basal ganglion infarct which correlated with findings on exam of left lower extremity weakness and ataxia on admission exam (NIHSS of 2). However MRI today read as no acute intracranial abnormalities with no findings to suggest acute stroke and those deficits did resolve. -have started asa and lipitor for TIA. -TTE unremarkable, no PFO, normal EF and no valvular pathologies. -some concern for possible afib initially on tele, however not definitive given baseline artifact upon further review and unable to capture any atrail fibrillation with multiple EKGs. Initially started on apixaban, however have reduced to aspirin for TIA treatment -patient is much diminished from baseline both physically and cognitively per his , Likely secondary to encephalopathy and immobility for the past week at home. PT recommending SNF, will continue PT /OT. -further possibilities for his admission symptoms include a hypertensive encephalopathy based on admission blood pressures with SBP >180 which is now improved with lisinopril therapy. 2. Acute cystitis, present on admission - Continue ceftriaxone 1 g q24 hours for 7 days, can transition to oral if discharged. Patient reported urinary frequency and likely had been avoiding urinating while on the floor at home leading to some retention. UA with 5-10 WBC and WBC casts, sent for culture but culture is without growth. Given some cognitive improvement with antibiotics, likely contributory as noted above. 3. BPH, chronic - continue home finasteride. 4. Hypertension, new diagnosis - have started lisinopril, now normotensive. Will continue to monitor. 5. Elevated transaminase levels, present on admission, resolved - likely secondary to mild muscle breakdown from being immobilized for the past week per report. Improved. 6. Cognitive impairment, present on admission - SLUMS testing today indicating severe cognitive impairment with score of 7/30. May be somewhat acute as noted above. Further testing / repeat testing is recommended as an outpatient with continued PT and OT. 7. Stage I decubitus ulcer, acute, present on admission - continue wound care per nursing staff. Code: Full, he states he has an advance care directive, surrogate decision maker is his Dispo: Anticipated discharge to SNF, possibly tomorrow. DVT: Lovenox daily Quality VTE Deep Vein Thrombosis/Pulmonary Embolism Present on Admission: No
[2020-07-11] MEDS: NYSTATIN POWDER 15GM 1 APPLIC TOP (14:37)
--- NOTE | 2020-07-11 14:42 | OT.IP.TRT ---
Current Diagnoses Cerebral infarction, unspecified (07/09/20) Occupational Therapy Treatment Note M2 OT-IP Current Condition Start: 07/10/20 15:59 Freq: Status: Active Protocol: Document 07/10/20 14:55 [facility] (Rec: 07/10/20 16:22 [facility] [id number]) Occupational Therapy Current Condition Current Condition Evaluation Date 07/10/20 Treatment Diagnosis TIA, toxic metabolic encephalopathy, decreased mobility,fall Diagnosis Onset Date 07/09/20 M3 OT- IP Subjective and Pain Start: 07/10/20 15:59 Freq: Status: Active Protocol: Document 07/11/20 17:21 [facility] (Rec: 07/11/20 17:42 [facility] [id number]) OT- Subjective Occupational Therapy Visit Type Type Treatment Note Visit Start Time 13:55 Visit Stop Time 14:42 Total Visit Minutes 47 Occupational Therapy Visit Comments Patient Comments Pt agreeable to work with OT, AUTO FLEET MANAGER also present for most of the session as pt needing extensive assist for mobility needs. Patient/Caregiver Goals TO go home. OT Pain Assessment Pain When Pain Assessed At Rest Pain Present Pain Present Denied Pain M4 OT- IP ADL's Start: 07/10/20 15:59 Freq: Status: Active Protocol: Document 07/11/20 17:21 [facility] (Rec: 07/11/20 17:42 [facility] [id number]) OT [id number] Comments OT Self-Feeding Comments NOt at meal time. OT ADL-Grooming Comments OT Grooming Comments Not performed. OT ADL-Oral Care Comments Oral Care Comments NOt performed. OT ADL-Dressing General Eval Lower Body Dressing Ability Maximum Assistance Areas Needing Assistance Underpants/Brief Comments OT Dressing Comments Pt needing MAX A to help don the brief and pull up over his hips as also needing AUTO FLEET MANAGER to assist to stand with FWW. OT ADL-Toileting General Evaluation Toileting Ability Maximum Assistance Areas Needing Assistance Manage Clothing,Perform Perineal Hygiene Comments OT Toileting Comments Pt able to assist to wipe but needing assist for completeness, noted rectal area excoriation and nursing notified. OT ADL-Bathing Comments OT Bathing Comments Not performed. M5 OT- IP IADL's Start: 07/10/20 15:59 Freq: Status: Active Protocol: Document 07/10/20 14:55 [facility] (Rec: 07/10/20 16:22 [facility] [id number]) OT-Instrumental Activities of Daily Living Home Safety Awareness Awareness of Need for Assistance at Home Decreased Awareness Ability to Problem Solve Emergency Able to Problem Solve Situations Home Safety Comments Pt able to accurately answer all home safety questions with good accuracy. Medication Management Medication Management Comments Pt a bit confused, having word finding, memory difficulties and balance issues and at this time would be best to have assist. Money Management Money Management Comments Pt a bit confused, having word finding, memory difficulties and balance issues and at this time would be best to have assist. Meal Preparation Meal Preparation Comments Pt a bit confused, having word finding, memory difficulties and balance issues and at this time would be best to have assist. Staking Press Operator Staking Press Operator Comments Pt a bit confused, having word finding, memory difficulties and balance issues and at this time would be best to have assist. M6 OT- IP Functional Cognition Start: 07/10/20 15:59 Freq: Status: Active Protocol: Document 07/11/20 17:21 [facility] (Rec: 07/11/20 17:42 [facility] [id number]) Cognitive Factors Limiting Selfcare Function Cognitive Ability Level of Alertness Alert,Confusional State Patient Orientation Name,Day of Week,Place Attention Span Ability Capable of Focused Attention, Unable to Sustain Attention Ability to Follow Commands Able to Follow One Step Commands with Increased Time, Able to Follow One Step Commands with Repetition Memory Description Short Term Impaired,Working Impaired Safety Awareness Underestimates Need for Assistance Problem Solving Ability Unable to Identify Errors, Needs Assist to Identify Solutions Executive Function Ability Unable to Switch Focus,Unable to Filter Distractions,Unable to Make Plans,Unable to Organize Plans,Unable to Remember Details Cognitive Tests SLUMS Re-tested SLUMS and score improved to 12/30 today able to correctly state the day of the week, able to recall 1 out of 5 objects, able to do simple 2 digit math problem, and able to answer 2/4 questions right after paragraph read. Today pt able to write in all the number of the clock but only the left side of the clock. Pt needing MAX vc to be able to correctly write in the numbers. Cognitive Comments Cognitive Assessment Comments Pt having trouble with sequencing for toileting needs for completeness. Pt not able to figure out how to get the wipes out of the package. VC for FWW safety. M7 OT- IP Mobility and Balance Start: 07/10/20 15:59 Freq: Status: Active Protocol: Document 07/11/20 17:21 [facility] (Rec: 07/11/20 17:42 [facility] [id number]) OT-Transfer Assessment Sit to and From Stand Sit to and from Stand Moderate Assistance,Maximum Assistance,1 Person Assistance Transfers Transfer Ability Moderate Assistance,Maximum Assistance,1 Person Assistance ,2 Person Assistance Technique Transfer Destination Bed,Chair,Toilet Comments Mobility Comments Pt MOD/MAX Ax1 to stand and MOD X 1 when having a grab bar to assist to stand. Pt initially able to walk with AUTO FLEET MANAGER and then getting tired and needing MODA X2, assist to help weight shift, guide the FWW and vc to stand upright. OT- Balance Assessment Sitting Balance and Reactions Static Sitting Balance Ability Good Dynamic Sitting Balance Ability Fair Standing Balance and Reactions Static Standing Balance Ability Poor Dynamic Standing Balance Ability Poor M8 OT- IP Objective Assessments Start: 07/10/20 15:59 Freq: Status: Active Protocol: Document 07/10/20 14:55 [facility] (Rec: 07/10/20 16:22 [facility] [id number]) OT Gross Range of Motion Upper Extremity Range of Motion ROM Impairments Grossly WFL for needs. OT Strength Comments Strength Comments BUE 4-/5 OT-Muscle Tone Assessment Muscle Tone WNL Yes OT Sensation Assessment Comments Summary Comments Increased time to follow directions and intact for sensation of light touch bilateral hands. M9 OT- IP Assessment and Plan Start: 07/10/20 15:59 Freq: Status: Active Protocol: Document 07/11/20 17:21 [facility] (Rec: 07/11/20 17:42 [facility] [id number]) OT Summary Assessment and Plan Potential Rehabilitation Potential Good Analytic Complexity at Evaluation Low Summary OT Impairments Strength,Balance,Functional Cognition,Functional Mobility, Self-Feeding,Grooming,Dressing ,Toileting,Bathing,Toilet Transfers,Shower Transfers, Activity Tolerance Progress Towards Goals Slow Progress due to Medical Issues,Slow Progress due to Activity Tolerance,Slow Progress due to Cognition Assessment Summary Pt here now due to toxic metabolic encephalopathy and still needing extensive assist for functional mobility, cognition and ADl's and at this time to great of burden for to assist as now needing 2 person assist. Pt would benefit from skilled rehab prior to going home. Goals Self-Feeding Goal Independent Grooming Goal Independent Dressing Goal Independent Toileting Goal Independent Bathing Goal Independent Toilet Transfer Goal Independent Shower Transfer Goal Independent Patient/Caregiver Education Goal Caregiver Independent Assisting Patient Days to Meet Goals 15 Frequency of Treatment Frequency Of Treatment Once a Day Treatment Plan OT Treatment Plan ADL Training,Functional Cognition Training,Functional Mobility,Patient/Family Education,Discharge Planning Other Treatment Recommendations and Next Pt to be able to do LB Treatment Focus dressing from the edge of the bed with PRATEEK. Discharge Recommendations OT Discharge Recommendations SNF Rehab Home Equipment Needs defer to SNF Transportation Needs at Discharge Wheelchair/Cabulance
--- NOTE | 2020-07-11 14:44 | PT.IPTN ---
Current Diagnoses Cerebral infarction, unspecified (07/09/20) Physical Therapy Treatment Note M2 PT-IP Current Condition Start: 07/10/20 11:00 Freq: NEEDED Status: Active Protocol: Document 07/10/20 09:15 AB (Rec: 07/10/20 11:14 AB [id number]) Physical Therapy Current Condition Current Condition Evaluation Date 07/10/20 Treatment Diagnosis Fall; CVA; difficulty in walking Onset Date 07/09/20 Precautions Other Precautions falls M3 PT-IP Subjective Start: 07/10/20 11:00 Freq: NEEDED Status: Active Protocol: Document 07/11/20 14:12 SP (Rec: 07/11/20 15:21 SP [id number]) Subjective Physical Therapy Visit Type Type Treatment Note Visit Start Time 14:12 Visit Stop Time 14:44 Total Visit Minutes 32 Notes Co tx with MARISSA Calzada. Number of SURFACE ROOM SHOP OPTICIAN Visits 1 Physical Therapy Visit Comments Patient Comments Pt agreeable to working with OT. Therapy Pain Assessment Pain Present Pain Present Denied Pain M4 PT-IP Mobility and Gait Start: 07/10/20 11:00 Freq: NEEDED Status: Active Protocol: Document 07/11/20 14:12 SP (Rec: 07/11/20 15:21 SP [id number]) PT-Bed Mobility Assessment Sit to Supine Sit to Supine Standby Assistance PT-Transfer Assessment Sit to and From Stand Sit to and from Stand Moderate Assistance,Maximum Assistance,1 Person Assistance ,Use of Upper Extremities Equipment Transfer Assistive Device Gait Belt,Front Wheeled Walker Orthotic/Prosthetic Devices or Brace: No Transfers Transfer Destination Bed,Toilet Transfer Technique ambulated using FWW Transfer Ability Level of Assist Maximum Assistance,1 Person Assistance,2 Person Assistance ,Use of Upper Extremities Comments Mobility Comments Pt seated in chair when arrived, stated little dizzy. Cotx with OT. sit> stand Max A initially from chair decreased to Mod x1 with Max cuing for hip hinge forward and [place] as needed for proper hand placement for use of FWW and LE extension with upright posture. Stand using FWW Max A x1 with Max cuing forward over EDISON to decrease retro lean during BP check. Ambulated to bathroom approx 8 ft Mod A of 2 with max cuign for trunk center alignment and 50% A of FWW postioning initially then Max for proper positioning during pivot. Standd>sit Mod A of 1 person with use of grab bar and FWW. Pt required increased time for use of bathroom, stable sitting but reminders for upright posture at times for safety. SURFACE ROOM SH[employer]ICIAN communicate with nursing possible constipation assist needed and need for barrior cream due to redness once in standing. Sit>stand Min A of 1 using grab bar and FWW, static standing CG-Min A x1 while OT provided assist with hygiene added assist. Pt ambulated to bed Mod A of 2 person with max cuing for Knee extension and increase foot clearance and stride 1, 2, 1, 2stepping cues and FWW repositioning mgt during pivot turn, SELDOVIA cues for reaching back Mod A for slow descent. . Pt able to lateral scoot CGA to HOB, sit>supine SBA with cuing for center in bed for safety, pillow under BLE and elevated HOB. Pt had call light and all needs in reach with bed alarm armed for safety, fall risk. Pt difficulty motor planning during tx,especially pivot turns. Continue to recommend SNF upon DC due to requires increased physical support during mobility, would benefit from continiued skilled rehab for increased strength and safety education during all mobility to increased independence. Gait Assessment Gait Gait Assistance Required: Maximum Assistance,1 Person Assist,2 Person Assist Distance (Feet) 10 Able to Maintain Weight Bearing Status Yes During Gait Assistive Devices Assistive Device Gait Belt,Front Wheeled Walker Orthotic/Prosthetic Devices or Brace: No Gait Deviations General Gait Pattern Antalgic,Decreased Stride Length,Decreased Feet Clearance,Flexed Trunk,Lateral Trunk Lean,Step-to Gait Factors Limiting Gait Function Factors Limiting Gait Function Decreased Activity Tolerance, Decreased Strength,Difficulty Following Directions,Limited Range of Motion,Pain,Poor Balance,Poor Safety Awareness Comments Gait Comments pt presents with shuffling gait and required max cues to increase LE elevation PT-Balance Assessment Sitting Balance and Reactions Static Sitting Balance Ability Good Dynamic Sitting Balance Ability Fair Standing Balance and Reactions Static Standing Balance Ability Poor Dynamic Standing Balance Ability Poor Device Used FWW M5 PT-IP Objective Assessments Start: 07/10/20 11:00 Freq: NEEDED Status: Active Protocol: Document 07/10/20 09:15 AB (Rec: 07/10/20 11:14 AB [id number]) Orientation Orientation/Cognition Level of Alertness Confusional State Orientation Name,Place Safety Awareness Decreased Safety Awareness Memory Description Short Term Impaired Gross Range of Motion Lower Extremity ROM Assessment Within Functional Limits Strength Lower Extremity Strength Hip 4-/5 Knee 4-/5 Muscle Tone Muscle Tone WNL Yes M6 PT-IP Treatment Start: 07/10/20 11:00 Freq: NEEDED Status: Active Protocol: Document 07/11/20 14:12 SP (Rec: 07/11/20 15:21 SP [id number]) Physical Therapy Treatment Education Education Provided Safety M7 PT-IP Assessment and Plan Start: 07/10/20 11:00 Freq: NEEDED Status: Active Protocol: Document 07/11/20 14:12 SP (Rec: 07/11/20 15:21 SP [id number]) PT Summary Assessment and Plan Potential Rehabilitation Potential Fair Status of Condition at Evaluation Evolving Summary Impairments Pain,ROM,Strength,Balance, Coordination,Sensation,Tone, Cognition,Bed Mobility, Transfers,Gait,Activity Tolerance Progress Towards Goals Slow Progress due to Medical Issues,Slow Progress due to Activity Tolerance,Slow Progress - Other Assessment Summary Pt requires Max A 1-2 persons and max cuing for all tasks. Pt tends to retro lean and requiring max A x 1-2 for steadiness and safety. pt will require SNF rehab to improve strength and mobility independence. Goals Bed Mobility Goal Independent Transfer Goal Standby Assistance,Front Wheeled Walker Gait Goal Standby Assistance,Front Wheel Walker Gait Distance 200 Other Goals up/down 2 flights of steps B rails; 4 steps 1 rail SBA Days to Meet Goals 10 Frequency of Treatment Frequency Of Treatment Twice a Day Treatment Plan Physical Therapy Treatment Plan Bed Mobility Training,Transfer Training,Gait Training, Therapeutic Exercise,Balance Retraining,Post Op Education, Discharge Planning,Hot or Cold Pack,Neuromuscular Re-ed, Coordination Retraining,Manual Therapy Other Recommendations and Next Treatment standing balance, ambulation Focus Recommendations To Nursing Amount of Assist Needed 2 Person Assist Discharge Recommendations PT Discharge Recommendations SNF Rehab,Acute Rehab Transportation Needs at Discharge Private Vehicle,Wheelchair/ Cabulance
--- NOTE | 2020-07-11 15:08 | PC.NURSE ---
pt poor historian- does not recall laying on floor with mattress at home for period of time prior to admission- in need of bm , new order `received for po rx- rectal area excoriation noted applied barrier cream mixed with nystatin-
[2020-07-11] MEDS: polyethylene glycoL 3350 17 GM POWD.PACK PO (15:25)
[2020-07-11] MEDS: BISACODYL 5 MG TABLET 10 MG PO (15:25)
--- NOTE | 2020-07-11 15:47 | CM.DPNOTE ---
Addendum entered by Brandie Luciano R.N. 07/11/20 16:13: Spoke to Anika, [facility] can take patient tomorrow if he remains at this level of need. requests an update prior to discharge. Original Note: Plan today has been challenging. Patient has definite physical and cognitive challenges that it is unclear when they began. His dx of Toxic Encephalopathy with secondary TIA indicates rehab. will be necessary. It is clear that although his strength/participation slowly improves he is not resolved enough to have his Kristina comrotable about the idea of ([phone]) resuming his care at home. She shares the same misgivings even with assistance of HH. [facility] originally denied patient, however December called this afternoon and requested to re-review this patient. [facility] refused patient. Faxed [facility] clinicals because they may be able to accept tomorrow or Thursday. Kristina called and updated about the status of plans.
[2020-07-11] MEDS: CEFTRIAXONE 1 GM/50 ML FROZ.PIGGY IV (19:02)
[2020-07-11] MEDS: SENNOSIDES 8.6 MG TABLET 17.2 MG PO (20:22)
[2020-07-11] MEDS: ATORVASTATIN 20 MG TABLET 40 MG PO (20:22)
[2020-07-12] VITALS: O2SAT 95
[2020-07-12 04:00] VITALS: O2SAT 95
[2020-07-12 04:33] VITALS: BP 116/68; PULSE 70; RESP 20; TEMP 35.9; O2SAT 94
[2020-07-12 05:28] LABS: Add Manual Diff / Slide Review NO; Basophils Absolute Auto 0 /uL (0-100); Basophils Percent Auto 0.4 % (0-2); Eosinophils Absolute Auto 200 /uL (0-450); Eosinophils Percent Auto 3.7 % (2-4); Hematocrit 40.8 % (41-53); Hemoglobin 13.8 g/dL (13.5-17.5); Lymphocytes Absolute Auto 600 /uL (1100-4500); Mean Corpuscular HGB Conc 33.9 % (30-36); Mean Corpuscular Hemoglobin 32.4 PG (26-34); Mean Corpuscular Volume 95.6 fL (80-100); Monocytes Absolute Auto 1000 /uL (0-900); Monocytes Percent Auto 15.3 % (3-14); Neutrophils Absolute Auto 4800 /uL (1500-7000); Neutrophils Percent Auto 71.6 % (50-75); Platelet Count 183 X10^3/uL (150-400); Red Blood Cell Count 4.27 X10^6/uL (4.5-5.9); Red Cell Distribution Width 15.3 % (11.6-14.8); White Blood Cell Count 6.8 X10^3/uL (4.5-11.0)
[2020-07-12 05:34] LABS: Alanine Aminotransferase 41 IU/L (<50); Albumin 3.2 g/dL (3.5-5.0); Albumin Globulin Ratio 1.2 (1.0-2.8); Alkaline Phosphatase 145 U/L (38-126); Aspartate Aminotransferase 38 IU/L (17-59); BUN Creatinine Ratio 39.4 (6-22); Bilirubin Total 0.5 mg/dL (0.2-1.3); Bilirubin Unconjugated 0.4 mg/dL (0.0-1.1); Blood Urea Nitrogen 26 mg/dL (9-20); Calcium 8.5 mg/dL (8.4-10.2); Carbon Dioxide 30 mmol/L (22-32); Chloride 101 mmol/L (98-107); Estimated Glomerular Filt Rate > 60.0 mL/min (>60); Globulin 2.6 g/dL (1.7-4.1); Glucose 97 mg/dL (80-110); HEMOLYSIS < 15 (0-50); Potassium 3.9 mmol/L (3.4-5.1); Sodium 131 mmol/L (137-145); Total Protein 5.8 g/dL (6.3-8.2)
--- NOTE | 2020-07-12 07:30 | PM.DS.1 ---
History of Present Illness History of Present Illness Date Patient Seen: 07/12/20 Time Patient Seen: 07:30 Chief complaint: fall Narrative: Fredrick Morales is an 84 year old male with PMH of BPH who presented to the emergency room with frequent falls. The patient reports falling at home a couple of weeks ago, he has been afraid to get up and move due to his frequent falls and weakness. According to the ER provider he and his thought it was most appropriate to bring a twin mattress down stairs and had provided him with a urinal as well as food on the floor. He has not had a bowel movement in the past week. He denies any chest pain, palpitations, lower extremity swelling or edema, shortness of breath, dizziness. He does complain of worsening weakness. He reports that he recently saw a neurologist but for what exactly he could not tell me and he had just completed physical therapy. He further denies any fevers, chills, cough, abdominal pain. He does endorse some urinary frequency no dysuria. He does endorse hip pain after his fall, but when asked where in his hip he was not able to tell me if this was in his left or right side In the emergency room, patient was mildly hypertensive but the remainder of his vital signs are unremarkable. Initial CBC was unremarkable, chemistries revealed a mildly elevated AST of 78, mildly elevated ALT of 53, alk-phos of 150, CK was mildly elevated 275. Troponin was negative. ProBNP was 236. Procalcitonin was negative. Urinalysis showed 5-10 white blood cells per high-powered field and white blood cell casts, specimen was sent for culture. COVID-19 testing was negative. EKG was unremarkable but is limited by significant baseline artifact probably due to his tremor. CT noncontrast of his head showed a possible right basal ganglia subacute infarct. Patient is admitted under inpatient status for likely CVA. Discharge Providers Provider Date of admission: 07/09/20 17:20 Discharge Date: 07/12/20 Primary care physician: Parish Gamez MD Consults: 07/09/20 11:26 Consult to JINGLE WRITER - Gunner'S Mate Stat Comment: 07/09/20 18:53 Consult to Occupational Therapy Evaluate & Treat Comment: Physician Instructions: Evaluate and treat Consult to Physical Therapy Evaluate & Treat Comment: Physician Instructions: Evaluate and Treat 07/09/20 19:00 Consult to JINGLE WRITER - Gunner'[employer] Mate Routine Comment: unable to walk for 1 week, likely cognitive impair 07/09/20 19:02 Consult to Dietitian, Adult Routine Comment: Reason For Exam: decreased wt loss Discharge provider: Vinod Rodríguez DO Summary Hospital Course Discharge Diagnosis: Please see hospital course by problem list noted below. Hospital Course: Fredrick Morales is an 84 year old male with PMH of BPH who presented to the emergency room with frequent falls, he was admitted with a toxic metabolic encephalopathy, TIA, and acute cystitis. Discharged to SNF based on PT recommendations. 1. Toxic metabolic encephalopathy, acute, present on admission, improving. - suspect multifactorial etiologies at this time. He was more disoriented on admission regarding his recent events and problems with weakness. Over the course of admission, his thinking has somewhat improved, however not back to apparent baseline per his . seems to think his cognition decreased fairly recently. - etiologies include toxic metabolic encephalopathy from acute cystitis, for which he is being treated, TIA, concussion as he did report hitting his head, MRI also suggestive of a possible demyelinating disease vs ischemia. Further evaluation with neurology as an outpatient is recommended. I do suspect a baseline mild dementia given SLUMS testing noted below, possibly vascular dementia or related to above findings on MRI. 2. TIA, acute, present on admission, resolved. -patient presented with inability to walk over the past 2 weeks after a fall at home. Imaging negative for acute fracture and his pain is improving. CT head without contrast performed in the emergency room shows a possible right basal ganglion infarct which correlated with findings on exam of left lower extremity weakness and ataxia on admission exam (NIHSS of 2). However MRI today read as no acute intracranial abnormalities with no findings to suggest acute stroke and those deficits did resolve. -have started asa and lipitor for TIA. -TTE unremarkable, no PFO, normal EF and no valvular pathologies. -some concern for possible afib initially on tele, however not definitive given baseline artifact upon further review (multiple PVCs and PACs noted on telemetry but no confirmed afib, and unable to capture any atrail fibrillation with multiple EKGs. Initially started on apixaban over concern for stroke and afib, however have reduced to aspirin for TIA treatment without confirmed afib. -patient is much diminished from baseline both physically and cognitively per his , Likely secondary to encephalopathy and immobility for the past week at home in the setting of underlying probable dementia. PT recommending SNF, will continue PT /OT. -further possibilities for his admission symptoms include a hypertensive encephalopathy based on admission blood pressures with SBP >180 which is now improved with lisinopril therapy. 2. Acute cystitis, present on admission - Continued ceftriaxone 1 g q24 hours for 3 days, transition to oral cefdinir 100 mg BID for remaining 4 days. Patient reported urinary frequency and likely had been avoiding urinating while on the floor at home leading to some retention. UA with 5-10 WBC and WBC casts, sent for culture but culture is without growth. Given some cognitive improvement with antibiotics, likely contributory as noted above. 3. BPH, chronic - continue home finasteride. 4. Hypertension, new diagnosis - started lisinopril over the course of his admission, now normotensive. 5. Elevated transaminase levels, present on admission, resolved - likely secondary to mild muscle breakdown from being immobilized for the past week per report. Improved. 6. Cognitive impairment, present on admission - SLUMS testing 07/11 indicating severe cognitive impairment with score of 7/30. May be somewhat acute as noted above. Further testing / repeat testing is recommended as an outpatient with continued PT and OT. 7. Stage I decubitus ulcer, acute, present on admission - continue wound care and keep mobilized Code: Full, he states he has an advance care directive but this was not brought in, surrogate decision maker is his Dispo: Discharge to SNF for continued PT / OT. Status at Discharge Overall status at discharge: patient is progressing back to baseline Time Spent with Patient Time spent: Greater than 30 minutes Exam Vital Signs (past 8 hours): - 07/11/20 23:49 07/12/20 00:00 07/12/20 04:00 Temperature 98.7 F Pulse Rate 83 Respiratory Rate 20 Blood Pressure 147/65 H Pulse Oximetry 99 95 95 07/12/20 04:33 Temperature 96.6 F L Pulse Rate 70 Respiratory Rate 20 Blood Pressure 116/68 Pulse Oximetry 94 Oxygen Delivery Method Room Air Oxygen Flow Rate 0 Narrative Exam Narrative: GENERAL APPEARANCE: Well developed, well nourished, in no acute distress. SKIN: Inspection of the skin reveals no rashes or petechiae. There is a right hip stage I decubitus ulcer now with dressings applied. HEENT: Normocephalic atraumatic, extraocular muscles are intact, oropharynx is clear and mucous membranes are moist, neck is supple without adenopathy NECK: Supple and symmetric. There was no thyroid enlargement, and no tenderness, or masses were felt. CHEST: Normal AP diameter and normal contour without any kyphoscoliosis. LUNGS: Auscultation of the lungs revealed no wheezes, rhonchi, or rales. CARDIOVASCULAR: There was a regular rate and rhythm without any murmurs, gallops, rubs. Peripheral pulses were 2+ and symmetric. ABDOMEN: Soft and nontender with normal bowel sounds. No ascites was noted. MUSCULOSKELETAL: There was no tenderness or effusions noted. Muscle strength and tone were normal. EXTREMITIES: No cyanosis, clubbing or edema. NEUROLOGIC: Alert and oriented x 3. Normal affect, but with cognitive impairment. Cranial nerves 2-12 grossly intact bilaterally. Sensation to light touch is intact bilaterally. Objective Labs Result Diagrams: 07/12/20 04:30 07/12/20 04:30 Labs: Laboratory Results - last 24 hr 07/12/20 07/12/20 04:30 04:30 WBC 6.8 RBC 4.27 L Hgb 13.8 Hct 40.8 L MCV 95.6 MCH 32.4 MCHC 33.9 RDW 15.3 H Plt Count 183 Neut % (Auto) 71.6 Lymph % (Auto) 9.0 L Crisp % (Auto) 15.3 H Eos % (Auto) 3.7 Baso % (Auto) 0.4 Neut # (Auto) 4800 Lymph # (Auto) 600 L Crisp # (Auto) 1000 H Eos # (Auto) 200 Baso # (Auto) 0 Sodium 131 L Potassium 3.9 Chloride 101 Carbon Dioxide 30 BUN 26 H Creatinine 0.66 Estimated GFR > 60.0 BUN/Creatinine Ratio 39.4 H Glucose 97 Calcium 8.5 Magnesium 2.0 Total Bilirubin 0.5 Conjugated Bilirubin 0.0 Unconjugated Bilirubin 0.4 AST 38 ALT 41 Alkaline Phosphatase 145 H Total Protein 5.8 L Albumin 3.2 L Globulin 2.6 Albumin/Globulin Ratio 1.2 [facility]LY [facility], [facility] Medical History Chickenpox (~1944) Colon polyps Elevated blood pressure reading Measles (~1945) Skin cancer (2015) Surgical History H/O local excision of skin lesion Family History Father No problems noted. Mother No problems noted. Grandfather No problems noted. Social History household members: spouse Smoking Status: Former smoker alcohol intake: current Discharge Plan Discharge Plan Patient Disposition: SNF Transfer to: [facility] Provider Discharge Comment: Fredrick Morales is an 84 year old male with PMH of BPH who presented to the emergency room with frequent falls, he was admitted with a toxic metabolic encephalopathy, TIA, and acute cystitis. 1. Toxic metabolic encephalopathy, acute, present on admission, improving. - suspect multifactorial etiologies at this time. He was more disoriented on admission regarding his recent events and problems with weakness. Over the course of admission, his thinking has somewhat improved, however not back to apparent baseline per his . seems to think his cognition decreased fairly recently. - etiologies include toxic metabolic encephalopathy from acute cystitis, for which he is being treated, TIA, concussion as he did report hitting his head, MRI also suggestive of a possible demyelinating disease vs ischemia. Further evaluation with neurology as an outpatient is recommended. I do suspect a baseline mild dementia given SLUMS testing noted below, possibly vascular dementia or related to above findings on MRI. 2. TIA, acute, present on admission, resolved. -patient presented with inability to walk over the past 2 weeks after a fall at home. Imaging negative for acute fracture and his pain is improving. CT head without contrast performed in the emergency room shows a possible right basal ganglion infarct which correlated with findings on exam of left lower extremity weakness and ataxia on admission exam (NIHSS of 2). However MRI today read as no acute intracranial abnormalities with no findings to suggest acute stroke and those deficits did resolve. -have started asa and lipitor for TIA. -TTE unremarkable, no PFO, normal EF and no valvular pathologies. -some concern for possible afib initially on tele, however not definitive given baseline artifact upon further review (multiple PVCs and PACs noted on telemetry but no confirmed afib, and unable to capture any atrail fibrillation with multiple EKGs. Initially started on apixaban over concern for stroke and afib, however have reduced to aspirin for TIA treatment without confirmed afib. -patient is much diminished from baseline both physically and cognitively per his , Likely secondary to encephalopathy and immobility for the past week at home in the setting of underlying probable dementia. PT recommending SNF, will continue PT /OT. -further possibilities for his admission symptoms include a hypertensive encephalopathy based on admission blood pressures with SBP >180 which is now improved with lisinopril therapy. 2. Acute cystitis, present on admission - Continued ceftriaxone 1 g q24 hours for 3 days, transition to oral cefdinir 100 mg BID for remaining 4 days. Patient reported urinary frequency and likely had been avoiding urinating while on the floor at home leading to some retention. UA with 5-10 WBC and WBC casts, sent for culture but culture is without growth. Given some cognitive improvement with antibiotics, likely contributory as noted above. 3. BPH, chronic - continue home finasteride. 4. Hypertension, new diagnosis - started lisinopril over the course of his admission, now normotensive. 5. Elevated transaminase levels, present on admission, resolved - likely secondary to mild muscle breakdown from being immobilized for the past week per report. Improved. 6. Cognitive impairment, present on admission - SLUMS testing 07/11 indicating severe cognitive impairment with score of 7/30. May be somewhat acute as noted above. Further testing / repeat testing is recommended as an outpatient with continued PT and OT. 7. Stage I decubitus ulcer, acute, present on admission - continue wound care and keep mobilized Code: Full, he states he has an advance care directive but this was not brought in, surrogate decision maker is his Dispo: Discharge to SNF for continued PT / OT. Discharge orders & Medications Prescriptions: New sennosides [senna] 8.6 mg Tablet 17.2 mg PO BEDTIME 14 Days Qty: 28 RF: 0 acetaminophen 325 mg Tablet 650 mg PO Q6HR PRN (Reason: Fever/Mild Pain (1-3)) 30 Days Qty: 60 RF: 0 polyethylene glycol 3350 17 gram Powder In Packet 17 gm PO DAILY 14 Days Qty: 14 RF: 0 aspirin 81 mg Tablet,Delayed Release (Dr/Ec) 81 mg PO DAILY 30 Days Qty: 30 RF: 0 lisinopril 10 mg Tablet 10 mg PO DAILY 30 Days Qty: 30 RF: 0 nystatin [Nystop] 100,000 unit/gram Powder 1 applic topical BID PRN (Reason: Rash) 14 Days Qty: 2 RF: 0 atorvastatin 40 mg tablet 40 mg PO BEDTIME 30 Days Qty: 30 RF: 0 cefdinir 300 mg capsule 300 mg PO BID 4 Days Qty: 8 RF: 0 Continued finasteride 5 MG tablet 5 mg PO DAILY Qty: 90 RF: 0 Follow up/Referrals: Parish Gamze MD [Primary Care Provider] - Discharge Health Status Multidrug resistant organism: No MDRO Precautions: Tracy Diet/Activity/Treatments Diet: Diet as Tolerated and Low-cholesterol Liquid consistency: Normal/Thin Food texture: Regular Activity: As tolerated Skin/Wound/Dressing Care Dressing: R hip stage I pressure ulcer [facility] Reason for rehabilitation: Recovery r/t decondition Rehab type: Physical therapy and Occupational therapy Discharge Data Primary Care Provider: Parish Gamez Quality VTE Deep Vein Thrombosis/Pulmonary Embolism Present on Admission: No
[2020-07-12 08:00] VITALS: BP 105/73; PULSE 66; RESP 15; TEMP 36.6; O2SAT 95
[2020-07-12 08:32] VITALS: BP 105/73; PULSE 65
[2020-07-12] MEDS: lisinopriL 10 MG TABLET PO (08:32)
[2020-07-12] MEDS: polyethylene glycoL 3350 17 GM POWD.PACK PO (08:33)
[2020-07-12] MEDS: FINASTERIDE 5 MG TABLET PO (08:33)
[2020-07-12] MEDS: SODIUM CHLORIDE 0.9% FLUSH 10 ML IV (08:33)
[2020-07-12] MEDS: ASPIRIN EC 81 MG TABLET PO (08:33)
--- NOTE | 2020-07-12 08:37 | CM.DPC ---
DCP: continued: pt now with d/c to [facility]. EMR for yesterday reviewed and followed up with [facility]. December confirms pt is accepted and that w/c van can transport him at 1130. RN caring for pt is updated and agreeable to this time. Covid - test of 02/06 is within [facility] parameters for admission. PASRR: am doing now and will process accordingly. SNF orders are obtained and faxed to [facility] and placed into snf packet. Have spoken with pt who is vague but seems agreeable to the d/c plan. Have spoken by phone with pt's Kristina and explained details of the d/c. She will be in to visit with her prior to his d/c today. She has not seen him since day of admission and is aware that she is not able to physically see him at the snf. She is aware that she can call Anika for more specific information about the snf process and plans to do this today. Will follow prn until pt leaves.
[2020-07-12 09:26] VITALS: O2SAT 96
--- NOTE | 2020-07-12 09:40 | PT.IPTN ---
Current Diagnoses Cerebral infarction, unspecified (07/09/20) Physical Therapy Treatment Note M2 PT-IP Current Condition Start: 07/10/20 11:00 Freq: NEEDED Status: Discharge Protocol: Document 07/10/20 09:15 AB (Rec: 07/10/20 11:14 AB [id number]) Physical Therapy Current Condition Current Condition Evaluation Date 07/10/20 Treatment Diagnosis Fall; CVA; difficulty in walking Onset Date 07/09/20 Precautions Other Precautions falls M3 PT-IP Subjective Start: 07/10/20 11:00 Freq: NEEDED Status: Discharge Protocol: Document 07/12/20 09:14 SP (Rec: 07/12/20 12:43 SP [id number]) Subjective Physical Therapy Visit Type Type Treatment Note Visit Start Time 09:14 Visit Stop Time 09:40 Total Visit Minutes 26 Number of ENGINEER CHIEF Visits 2 Physical Therapy Visit Comments Patient Comments Pt agreeable to working with therapy this am. Therapy Pain Assessment Pain Present Pain Present Denied Pain M4 PT-IP Mobility and Gait Start: 07/10/20 11:00 Freq: NEEDED Status: Discharge Protocol: Document 07/12/20 09:14 SP (Rec: 07/12/20 12:43 SP [id number]) PT-Transfer Assessment Sit to and From Stand Sit to and from Stand Moderate Assistance,1 Person Assistance,Use of Upper Extremities Equipment Transfer Assistive Device Gait Belt,Front Wheeled Walker Orthotic/Prosthetic Devices or Brace: No Transfers Transfer Destination Chair,Toilet Transfer Technique ambulated using FWW Transfer Ability Level of Assist Maximum Assistance,1 Person Assistance,Use of Upper Extremities Comments Mobility Comments Pt was upright in chair when arrived. Sit<> stand Mod A x1 with cuing for scoot to edge of chair, hip hinge forward and pushing from chair arms then transition onto FWW handles (ALUTIIQ contact cue as needed). Ambulated chair to toilet with Max continuous cuing for foot clearance, increase stride and knee extension and upright posture in midline FWW (tends to lean to R) and motor planning pivot turn and back up to toilet while using fWW. Pt did not need physical assist just cuing for FWW positioning this am. Pt was able to complete pant management himself with grab bar for support and FWW as needed. Stand>sit with use of grab bar Min A for slow graded sit. Pt was productive in BM this tx, needed min A end of use for assurance of self hygiene and application of ointment skin protectant per nursing. Did note small spot of blood during wiping, not to concerning but notified nursing. Sit> stand and pant mgt Min A, ambulated to chair 10 ft Mod A x1 with same cuing . Pt was seated in chair with chair alarm donned, supported with pillow behind back and warm blankets provided by PIPE TESTING TECHNICIAN end of tx. ENGINEER CHIEF recommending SNF for continued skilled PT progression in strength toward improving functional independence. Pt agreed is not back to his normal. Gait Assessment Gait Gait Assistance Required: Maximum Assistance,1 Person Assist Distance (Feet) 10 Able to Maintain Weight Bearing Status Yes During Gait Assistive Devices Assistive Device Gait Belt,Front Wheeled Walker Orthotic/Prosthetic Devices or Brace: No Gait Deviations General Gait Pattern Antalgic,Decreased Stride Length,Decreased Feet Clearance,Festinating,Flexed Trunk,Lateral Trunk Lean, Narrow Based Gait,Step-to Gait Factors Limiting Gait Function Factors Limiting Gait Function Decreased Activity Tolerance, Decreased Strength,Difficulty Following Directions,Limited Range of Motion,Pain,Poor Balance,Poor Safety Awareness Comments Gait Comments Pt continues to demonstrate shuffle gait, requiring max cues for upright posture, knee extension and longer stride and foot clearance almost each step. PT-Balance Assessment Sitting Balance and Reactions Static Sitting Balance Ability Good Dynamic Sitting Balance Ability Fair Standing Balance and Reactions Static Standing Balance Ability Fair Dynamic Standing Balance Ability Poor Device Used FWW M5 PT-IP Objective Assessments Start: 07/10/20 11:00 Freq: NEEDED Status: Discharge Protocol: Document 07/10/20 09:15 AB (Rec: 07/10/20 11:14 AB [id number]) Orientation Orientation/Cognition Level of Alertness Confusional State Orientation Name,Place Safety Awareness Decreased Safety Awareness Memory Description Short Term Impaired Gross Range of Motion Lower Extremity ROM Assessment Within Functional Limits Strength Lower Extremity Strength Hip 4-/5 Knee 4-/5 Muscle Tone Muscle Tone WNL Yes M6 PT-IP Treatment Start: 07/10/20 11:00 Freq: NEEDED Status: Discharge Protocol: Document 07/12/20 09:14 SP (Rec: 07/12/20 12:43 SP [id number]) Physical Therapy Treatment Education Education Provided Safety M7 PT-IP Assessment and Plan Start: 07/10/20 11:00 Freq: NEEDED Status: Discharge Protocol: Document 07/12/20 09:14 SP (Rec: 07/12/20 12:43 SP [id number]) PT Summary Assessment and Plan Potential Rehabilitation Potential Fair Status of Condition at Evaluation Evolving Summary Impairments Pain,ROM,Strength,Balance, Coordination,Sensation,Tone, Cognition,Bed Mobility, Transfers,Gait,Activity Tolerance Progress Towards Goals Slow Progress due to Medical Issues,Slow Progress due to Activity Tolerance,Slow Progress - Other Assessment Summary Pt requires Mod-Max A 1 person today with continued max cuing for all tasks for safety and balance in standing using FWW. Pt decreased retro and R lean and requiring max A x 1 for steadiness and safety. pt will require SNF rehab to improve strength and mobility independence. Goals Bed Mobility Goal Independent Transfer Goal Standby Assistance,Front Wheeled Walker Gait Goal Standby Assistance,Front Wheel Walker Gait Distance 200 Other Goals up/down 2 flights of steps B rails; 4 steps 1 rail SBA Days to Meet Goals 10 Frequency of Treatment Frequency Of Treatment Twice a Day Treatment Plan Physical Therapy Treatment Plan Bed Mobility Training,Transfer Training,Gait Training, Therapeutic Exercise,Balance Retraining,Post Op Education, Discharge Planning,Hot or Cold Pack,Neuromuscular Re-ed, Coordination Retraining,Manual Therapy Other Recommendations and Next Treatment standing balance, ambulation Focus Recommendations To Nursing Amount of Assist Needed 1 Person Assist Discharge Recommendations PT Discharge Recommendations SNF Rehab,Acute Rehab Transportation Needs at Discharge Private Vehicle,Wheelchair/ Cabulance
--- NOTE | 2020-07-12 11:39 | PC.NURSE ---
Report called to Lott[facility] at [facility]. Patient left facility via private facility vehicle. Patient left facility with all belongings.
== END 2020-07-12 11:35 | DRG 69 ==
LOC: ED 12:07 → AC 18:27
PROVIDERS: Admitting Provider Internal Medicine; Emergency Provider Emergency Medicine; PCP Family Medicine; Referring Provider Emergency Medicine; Visit Provider Internal Medicine
DX: G45.9 Transient cerebral ischemic attack, unspecified (principal); G93.41 Metabolic encephalopathy; N30.00 Acute cystitis without hematuria; G81.94 Hemiplegia, unspecified affecting left nondominant side; L89.211 Pressure ulcer of right hip, stage 1; R26.0 Ataxic gait; R74.01 Elevation of levels of liver transaminase levels; I10 Essential (primary) hypertension; N40.0 Benign prostatic hyperplasia without lower urinary tract symptoms; Z20.828 Contact with and (suspected) exposure to other viral communicable diseases; Z87.891 Personal history of nicotine dependence; Z91.81 History of falling
CPT/HCPCS: 36415; 70450; 70548; 70553; 73522; 80048; 80053; 80061; 80076; 81001; 82550; 82962; 83036; 83735; 83880; 84145; 84443; 84484; 85025; 87086; 87635; 93005; 93010; 93306; 97116; 97162; 97165; 97530; 97535; 99284; A9579; J2060

== ENCOUNTER 2021-06-24 13:23 | Inpatient (IN) | payer MEDICARE, SELFPAY ==
[2020-07-09 18:09] VITALS: BMI 25.7
[2021-06-24] VITALS (21 sets, daily range): BP systolic 135–171; BP diastolic 69–99; PULSE 58–97; RESP 12–24; TEMP 36.4; O2SAT 96–100; BMI 23.1
--- NOTE | 2021-06-24 13:53 | DI.RAD.S_ITS ---
PROCEDURE: XR CHEST 1V INDICATIONS: chest pain TECHNIQUE: One view of the chest was acquired. COMPARISON: [facility], , CHEST 1 VIEW, 11/09/2017, 14:27. FINDINGS: Surgical changes and devices: None. Lungs and pleura: Lungs are clear. No pleural effusions or pneumothorax. Mediastinum: Mediastinal contours appear normal. Heart size is normal. Bones and chest wall: No suspicious bony lesions. Overlying soft tissues appear unremarkable. IMPRESSION: No acute pulmonary process. Dictated by: Yissel Krishnan M.D. on 06/24/2021 at 14:48 Approved by: Yissel Krishnan M.D. on 06/24/2021 at 14:48
[2021-06-24 14:02] LABS: Add Manual Diff / Slide Review NO; Basophils Absolute Auto 0 /uL (0-100); Basophils Percent Auto 0.2 % (0-2); Eosinophils Absolute Auto 0 /uL (0-450); Eosinophils Percent Auto 0.5 % (2-4); Hematocrit 46.5 % (41-53); Hemoglobin 15.7 g/dL (13.5-17.5); Lymphocytes Absolute Auto 500 /uL (1100-4500); Lymphocytes Percent Auto 5.5 % (25-40); Mean Corpuscular HGB Conc 33.7 % (30-36); Mean Corpuscular Hemoglobin 32.6 PG (26-34); Mean Corpuscular Volume 96.7 fL (80-100); Monocytes Absolute Auto 1100 /uL (0-900); Monocytes Percent Auto 13.3 % (3-14); Neutrophils Absolute Auto 6700 /uL (1500-7000); Neutrophils Percent Auto 80.5 % (50-75); Platelet Count 139 X10^3/uL (150-400); Red Blood Cell Count 4.81 X10^6/uL (4.5-5.9); Red Cell Distribution Width 13.3 % (11.6-14.8); White Blood Cell Count 8.3 X10^3/uL (4.5-11.0)
[2021-06-24 14:03] LABS: INR 1.1 (0.9-1.3); Prothrombin Time 12.4 SECONDS (10.1-12.7)
[2021-06-24 14:06] LABS: PTT Partial Thromboplastin Tim 28 SECONDS (26.4-36.2)
[2021-06-24 14:08] LABS: Lactate (Lactic Acid) 2.6 mmol/L (0.7-2.1)
[2021-06-24 14:10] LABS: Alanine Aminotransferase 83 IU/L (<50); Albumin 4.2 g/dL (3.5-5.0); Albumin Globulin Ratio 1.4 (1.0-2.8); Alkaline Phosphatase 109 U/L (38-126); BUN Creatinine Ratio 33.3 (6-22); Bilirubin Total 1.3 mg/dL (0.2-1.3); Blood Urea Nitrogen 23 mg/dL (9-20); Calcium 8.6 mg/dL (8.4-10.2); Carbon Dioxide 25 mmol/L (22-32); Chloride 101 mmol/L (98-107); Estimated Glomerular Filt Rate > 60.0 mL/min (>60); Globulin 2.9 g/dL (1.7-4.1); Glucose 101 mg/dL (80-110); Lipase 49 U/L (23-300); Magnesium 2.2 mg/dL (1.6-2.3); Sodium 134 mmol/L (137-145); Total Protein 7.1 g/dL (6.3-8.2)
--- NOTE | 2021-06-24 14:18 | DI.CT.S_ITS ---
PROCEDURE: CT HEAD/BRAIN WO CON INDICATIONS: Fall/injury/confusion TECHNIQUE: Noncontrast 4.5 mm thick angled axial sections acquired from the foramen magnum to the vertex, with coronal and sagittal reformats. For radiation dose reduction, the following was used: automated exposure control, adjustment of mA and/or kV according to patient size. COMPARISON: [facility], MR, MR STROKE, 07/10/2020, 10:41. [facility], CT, CT HEAD/BRAIN WO CON, 07/09/2020, 15:17. FINDINGS: Image quality: This examination is limited by involuntary motion artifact. CSF spaces: Basal cisterns are patent. No extra-axial fluid collections. The ventricles are abnormally prominent and are more prominent than would be expected, given the degree of sulcal atrophy. Brain: No intracranial bleeds or masses. There is cerebral volume loss for age, with resultant ventricular and sulcal prominence. There are periventricular and deep white matter chronic small vessel ischemic changes. 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 There is intracranial internal carotid artery atherosclerosis. Skull and face: Calvarium and visualized facial bones appear intact, without suspicious lesions. Sinuses: Visualized sinuses and mastoids are clear. IMPRESSION: No acute intracranial hemorrhage is seen. No acute intracranial process is seen. Abnormally prominent lateral ventricles, which are more prominent than would be expected, given the degree of sulcal atrophy. Please consider normal pressure hydrocephalus. Dictated by: Mikhail Montilla M.D. on 06/24/2021 at 13:44 Approved by: Mikhail Montilla M.D. on 06/24/2021 at 13:46
--- NOTE | 2021-06-24 14:19 | ED_ITS ---
HPI - General Adult General Chief complaint: Weakness Stated complaint: Found Down Time Seen by Provider: 06/24/21 14:08 Source: patient and EMS Mode of arrival: EMS Limitations: no limitations History of Present Illness HPI narrative: Patient brought in by EMS from personal home/residents after being on the living room floor all night. Patient states his legs hurt and he decided to lay down last night. He states he has not felt well since his COVID shot a few days ago. [facility] staff found patient on the floor and called EMS. Patient denies any chest pain abdominal pain back pain. Denies any injury. No head or neck pain. Denies any fall. No recent illness fever chills cough cold congesti on. No urinary complaints other than decreased urination than usual. Patient is awake alert oriented to self and date of . Has clear speech. Only complaints of bilateral leg pain. Related Data Home Medications Medication Instructions Recorded Confirmed finasteride 5 mg tablet 5 mg PO DAILY #90 11/09/17 06/24/21 aspirin 81 mg capsule 81 mg PO DAILY 06/24/21 06/24/21 atorvastatin 40 mg tablet 40 mg PO BEDTIME 06/24/21 06/24/21 lisinopril 10 mg tablet 10 mg PO DAILY 06/24/21 06/24/21 Allergies Allergy/AdvReac Type Severity Reaction Status Date / Time No Known Drug Allergies Allergy Verified 06/24/21 16:18 Review of Systems Review of Systems Narrative: GENERAL: Denies chills, positive fatigue, malaise, negative fever, sweats. HEENT: Denies sinus pain, ear pain, sore throat RESPIRATORY: Denies dyspnea, cough CARDIOVASCULAR: Denies chest pain, palpitations GASTROINTESTINAL: Denies nausea, vomiting, abdominal pain : Denies dysuria, frequency, hematuria MUSCULOSKELETAL: Positive muscle or bony pain SKIN: Denies rash, skin lesions NEUROLOGIC: Denies weakness, numbness ROS Unobtainable: All systems reviewed & are unremarkable except as noted in HPI and below Patient History Medical History Chickenpox (~1944) Colon polyps Elevated blood pressure reading Measles (~1945) Skin cancer (2015) Surgical History H/O local excision of skin lesion Family History Father No problems noted. Mother No problems noted. Grandfather No problems noted. Social History household members: none Smoking Status: Former smoker alcohol intake: current Smoking Status: Former smoker alcohol intake frequency: holidays/special occasions only Alcohol type: wine Substance Use Type: does not use Exam Narrative Exam Narrative: GENERAL: in no distress, not toxic not dyspneic HEAD: Normocephalic. Atraumatic. Nontender face and scalp and skull. EYES: Pupils equal round No scleral icterus. ENT: Mucous membranes moist. NECK: Trachea midline. No midline tenderness or step-off of the cervical thoracic and lumbar spine. No skin injury bruising seen on the back. CARDIOVASCULAR: Regular rate and rhythm without murmurs RESPIRATORY: Clear to auscultation. Breath sounds equal bilaterally. No wheezes, rales, or rhonchi. GASTROINTESTINAL: Abdomen soft, non-tender EXTREMITIES: No gross deformities. Patient has pain with movement of bilateral lower extremities at the hip and knees. Patient states not had any fall or injury. Calves and thighs are soft. No pain out of proportion to exam. Clinically no compartment syndrome. BACK: No flank tenderness. NEURO: AOx3. Clear speech no facial droop light touch intact to bilateral face and hands are strong equal keeper head. SKIN: Warm and dry PSYCH: Not anxious, is cooperative Initial Vital Signs Initial Vital Signs: Vital Signs Temperature 97.6 F 06/24/21 13:26 Pulse Rate 74 06/24/21 13:26 Respiratory Rate 16 06/24/21 13:26 Blood Pressure 161/72 H 06/24/21 13:26 Pulse Oximetry 100 06/24/21 13:26 Course Course Course Narrative: Appropriate for admission. No new issues during course of stay Decision to Admit Date: 06/24/21 Decision to Admit time: 15:42 Orders Ordered: Acetaminophen (Acetaminophen 325 Mg Tablet) 650 mg PO Q6HR PRN PRN Reason: Fever/Mild Pain (1-3) Aspirin (Aspirin 81 Mg Chew Tab) 81 mg PO DAILY FERMIN Atorvastatin Calcium (Atorvastatin 20 Mg Tablet) 40 mg PO BEDTIME [facility] Last Admin: 06/24/21 22:16 Dose: 40 mg Documented by: TSUTTER Enoxaparin Sodium (Enoxaparin 40 Mg/0.4 Ml Syringe) 40 mg SUBCUT DAILY FERMIN Finasteride (Finasteride 5 Mg Tablet) 5 mg PO DAILY FERMIN Sodium Chloride (Normal Saline 0.9%) 1,000 mls @ 125 mls/hr IV CONT FERMIN Last Admin: 06/25/21 06:15 Dose: 125 mls/hr Documented by: Infusion: 06/25/21 06:15 Dose: 125 mls/hr Documented by: Admin: 06/24/21 22:20 Dose: 125 mls/hr Documented by: BIRD Ondansetron HCl (Ondansetron 4 Mg/2 Ml Inj) 4 mg IV Q8HR PRN PRN Reason: Nausea And Vomiting Discontinued Medications Sodium Chloride (Normal Saline 0.9%) 500 mls @ 1,000 mls/hr IV BOLUS ONE Stop: 06/24/21 14:53 Last Infusion: 06/24/21 15:49 Dose: 0 mls/hr Documented by: Admin: 06/24/21 14:58 Dose: 1,000 mls/hr Documented by: QUETA Sodium Chloride (Normal Saline 0.9%) 500 mls @ 1,000 mls/hr IV BOLUS ONE Stop: 06/24/21 16:17 Last Infusion: 06/24/21 16:45 Dose: 0 mls/hr Documented by: Admin: 06/24/21 16:01 Dose: 1,000 mls/hr Documented by: QUETA Sodium Chloride (Normal Saline 0.9%) 1,000 mls @ 1,000 mls/hr IV BOLUS ONE Stop: 06/24/21 19:22 Last Infusion: 06/24/21 20:30 Dose: 0 mls/hr Documented by: Admin: 06/24/21 18:27 Dose: 1,000 mls/hr Documented by: QUETA Reevaluation(s) Reevaluation #1: Updated patient results. Agrees for admit. No new issues. Social work at bedside seeing patient right now. Time: 15:42 Consultations Consultation #1: Spoke with hospitalist, Dr. lacey, will see patient for admit Time: 15:43 Vital Signs Vital signs: Vital Signs - 8 hr 06/24/21 13:26 06/24/21 13:35 06/24/21 13:58 Temperature 97.6 F Pulse Rate 74 71 59 L Respiratory Rate 16 17 12 Blood Pressure 161/72 H 159/73 H Pulse Oximetry 100 100 99 06/24/21 14:00 06/24/21 14:01 06/24/21 14:30 Temperature Pulse Rate 58 L 62 74 Respiratory Rate 13 13 19 Blood Pressure 148/69 H 157/95 H Pulse Oximetry 98 98 99 Medical Decision Making Differential Diagnosis Differential Diagnosis: TIA/stroke/UTI/failure to thrive/dehydration Lab Data Result diagrams: 06/25/21 05:17 06/25/21 05:17 Labs: Lab Results 06/24/21 06/24/21 06/24/21 Range/Units 13:45 13:45 13:45 WBC 8.3 (4.5-11.0) X10^3/uL RBC 4.81 (4.5-5.9) X10^6/uL Hgb 15.7 (13.5-17.5) g/dL Hct 46.5 (41-53) % MCV 96.7 (80-100) fL MCH 32.6 (26-34) PG MCHC 33.7 (30-36) % RDW 13.3 (11.6-14.8) % Plt Count 139 L (150-400) X10^3/uL Neut % (Auto) 80.5 H (50-75) % Lymph % (Auto) 5.5 L (25-40) % [place] % (Auto) 13.3 (3-14) % Eos % (Auto) 0.5 L (2-4) % Baso % (Auto) 0.2 (0-2) % Neut # (Auto) 6700 (0247-9352) /uL Lymph # (Auto) 500 L (4006-5979) /uL [place] # (Auto) 1100 H (0-900) /uL Eos # (Auto) 0 (0-450) /uL Baso # (Auto) 0 (0-100) /uL PT 12.4 (10.1-12.7) SECONDS INR 1.1 (0.9-1.3) APTT 28 (26.4-36.2) SECONDS Sodium 134 L (137-145) mmol/L Potassium 5.2 H (3.4-5.1) mmol/L Chloride 101 (98-107) mmol/L Carbon Dioxide 25 (22-32) mmol/L BUN 23 H (9-20) mg/dL Creatinine 0.69 (0.66-1.25) mg/dL Estimated GFR > 60.0 (>60) mL/min BUN/Creatinine Ratio 33.3 H (6-22) Glucose 101 (80-110) mg/dL Lactate (0.7-2.1) mmol/L Calcium 8.6 (8.4-10.2) mg/dL Magnesium 2.2 (1.6-2.3) mg/dL Total Bilirubin 1.3 (0.2-1.3) mg/dL AST 290 H (17-59) IU/L ALT 83 H (<50) IU/L Alkaline Phosphatase 109 (38-126) U/L Total Creatine Kinase 9404 H (55-170) U/L CK-MB (CK-2) 54.60 H (<2.37) ng/mL CK-MB (CK-2) Rel Index 0.6 L (1.5-5.0) % Troponin I 0.035 H (0.01-0.034) ng/mL NT-Pro-B Natriuret Pep 2050 H (<450) pg/mL Total Protein 7.1 (6.3-8.2) g/dL Albumin 4.2 (3.5-5.0) g/dL Globulin 2.9 (1.7-4.1) g/dL Albumin/Globulin Ratio 1.4 (1.0-2.8) Lipase 49 (23-300) U/L SARS-CoV-2 (PCR) (Negative) 06/24/21 06/24/21 Range/Units 13:45 13:45 WBC (4.5-11.0) X10^3/uL RBC (4.5-5.9) X10^6/uL Hgb (13.5-17.5) g/dL Hct (41-53) % MCV (80-100) fL MCH (26-34) PG MCHC (30-36) % RDW (11.6-14.8) % Plt Count (150-400) X10^3/uL Neut % (Auto) (50-75) % Lymph % (Auto) (25-40) % [place] % (Auto) (3-14) % Eos % (Auto) (2-4) % Baso % (Auto) (0-2) % Neut # (Auto) (7248-0056) /uL Lymph # (Auto) (3319-9054) /uL [place] # (Auto) (0-900) /uL Eos # (Auto) (0-450) /uL Baso # (Auto) (0-100) /uL PT (10.1-12.7) SECONDS INR (0.9-1.3) APTT (26.4-36.2) SECONDS Sodium (137-145) mmol/L Potassium (3.4-5.1) mmol/L Chloride (98-107) mmol/L Carbon Dioxide (22-32) mmol/L BUN (9-20) mg/dL Creatinine (0.66-1.25) mg/dL Estimated GFR (>60) mL/min BUN/Creatinine Ratio (6-22) Glucose (80-110) mg/dL Lactate 2.6 H (0.7-2.1) mmol/L Calcium (8.4-10.2) mg/dL Magnesium (1.6-2.3) mg/dL Total Bilirubin (0.2-1.3) mg/dL AST (17-59) IU/L ALT (<50) IU/L Alkaline Phosphatase (38-126) U/L Total Creatine Kinase (55-170) U/L CK-MB (CK-2) (<2.37) ng/mL CK-MB (CK-2) Rel Index (1.5-5.0) % Troponin I (0.01-0.034) ng/mL NT-Pro-B Natriuret Pep (<450) pg/mL Total Protein (6.3-8.2) g/dL Albumin (3.5-5.0) g/dL Globulin (1.7-4.1) g/dL Albumin/Globulin Ratio (1.0-2.8) Lipase (23-300) U/L SARS-CoV-2 (PCR) Negative (Negative) Imaging Data CT scan - head: Radiologist's Impression: [address] [address] [address] Scan Report Signed Patient: Fredrick Morales I MR#: [id number] : 1935 Acct:[id number] Age/Sex: 85 / M Date of Service: 06/24/21 Loc: ED Accession Number: [id number] ?? Procedure: CT head/brain wo con Ordering Provider: Johnson Javier MD PROCEDURE:? CT HEAD/BRAIN WO CON ? INDICATIONS:? Fall/injury/confusion ? TECHNIQUE:? Noncontrast 4.5 mm thick angled axial sections acquired from the foramen magnum to the vertex, with coronal and sagittal reformats.? For radiation dose reduction, the following was used:? automated exposure control, adjustment of mA and/or kV according to patient size.? ? COMPARISON:? [facility], MR, MR STROKE, 07/10/2020, 10:41.? [facility], CT, CT HEAD/BRAIN WO CON, 07/09/2020, 15:17. ? FINDINGS:? Image quality:? This examination is limited by involuntary motion artifact.? ? CSF spaces:? Basal cisterns are patent.? No extra-axial fluid collections.? The ventricles are abnormally prominent and are more prominent than would be expected, given the degree of sulcal atrophy. ? Brain:? No intracranial bleeds or masses.? There is cerebral volume loss for age, with resultant ventricular and sulcal prominence.? There are periventricular and deep white matter chronic small vessel ischemic changes.? A right basal ganglia lacunar infarct is again seen.? There is intracranial internal carotid artery atherosclerosis.? ? Skull and face:? Calvarium and visualized facial bones appear intact, without suspicious lesions.? ? Sinuses:? Visualized sinuses and mastoids are clear.? ? IMPRESSION:? No acute intracranial hemorrhage is seen.? ? No acute intracranial process is seen.? ? Abnormally prominent lateral ventricles, which are more prominent than would be expected, given the degree of sulcal atrophy.? Please consider normal pressure hydrocephalus. ? ? Dictated by: Mikhail Montilla M.D. on 06/24/2021 at 13:44 ? ? Approved by: Mikhail Montilla M.D. on 06/24/2021 at 13:46 ? Chest x-ray: Radiologist's Impression: [address] [address] XRay Report Signed Patient: Fredrick Morales I MR#: [id number] : 1935 Acct:[id number] Age/Sex: 85 / M Date of Service: 06/24/21 Loc: ED Accession Number: [id number] ?? Procedure: XR chest 1V Ordering Provider: Johnson Javier MD PROCEDURE:? XR CHEST 1V ? INDICATIONS:? chest pain ? TECHNIQUE:? One view of the chest was acquired.? ? COMPARISON:? [facility], , CHEST 1 VIEW, 11/09/2017, 14:27. ? FINDINGS:? ? Surgical changes and devices:? None.? ? Lungs and pleura:? Lungs are clear.? No pleural effusions or pneumothorax.? ? Mediastinum:? Mediastinal contours appear normal.? Heart size is normal.? ? Bones and chest wall:? No suspicious bony lesions.? Overlying soft tissues appear unremarkable.? ? IMPRESSION:? No acute pulmonary process. ? ? Dictated by: Yissel Krishnan M.D. on 06/24/2021 at 14:48 ? ? Approved by: Yissel Krishnan M.D. on 06/24/2021 at 14:48 ? ECG Data Interpretation: Sinus rhythm rate [address] elevation or depression MDM Narrative Medical decision making narrative: Appropriate for admission. Needs treatment for rhabdomyolysis. Also intervention with social Work for home setting safety. Reviewed with patient and agrees for admit. Review with hospitalist and agrees for admit. Troponin is nonspecific. Patient offers no chest pain. BNP nonspecific. No cardiomegaly. Has clear lung sounds. Will be judicious with IV hydration for rhabdomyolysis Discharge Plan Departure Patient Disposition: Admitted as Observation Clinical Impression: Rhabdomyolysis Admit Date/Time: 06/24/21 16:11 Admit Provider: Tamra Lacey
[2021-06-24 14:21] LABS: NT-proBNP (BNP-Adult 18+) 2050 pg/mL (<450); Troponin I 0.035 ng/mL (0.01-0.034)
[2021-06-24 14:51] LABS: COVID19 - ADMIT (NP swab/PCR) Negative (Negative); Creatine Kinase 9404 U/L (55-170)
[2021-06-24] MEDS: SODIUM CHLORIDE 0.9% 500 ML 1000 ML IV ×2 (14:58→16:01)
[2021-06-24 14:59] LABS: CKMB % Relative Index 0.6 % (1.5-5.0)
[2021-06-24 15:06] LABS: HEMOLYSIS 183 (0-50)
[2021-06-24 15:07] LABS: Potassium 5.2 mmol/L (3.4-5.1)
[2021-06-24 15:08] LABS: Aspartate Aminotransferase 290 IU/L (17-59)
--- NOTE | 2021-06-24 15:54 | CM.SWNOTE ---
ARTISTIC ASSOCIATE/DCP Assessment Note Patient is 85 y/o male who presents to the ED after being on the ground. Patient endorses that he did not fall and that he was having leg pain after his covid shot and proceeded to lay on the ground. Patient endorses that he resides alone and his in September 2020. Patient endorses that he has a caregiver that comes to his home 2 days a week for 3 hours each time named Jeanette. Patient endorses that he is fairly independent with ADLs. Patient denies recent falls and states that he uses a three prong cane and a walker. Patient endorses that he did have some ground level falls a year ago. Patient endorses that he has a son named Terrell that resides in [place] but he does not know his son's phone number. Patient endorses that patient and have son have been looking at higher level of care facilities for patient and patient is interested in [facility]. ED provider Dr. Javier comes into room while ARTISTIC ASSOCIATE is meeting with patient and endorses that patient is going to be admitted for observation tonight due to concern for patient's kidneys, in need of fluid and observation because patient was most likely on the ground for quite some time. Patient indicates agreement and understanding. ARTISTIC ASSOCIATE identifies phone number for son Terrell (Ph. # [phone]). ARTISTIC ASSOCIATE speaks with Terrell, and he endorses that he has concern that patient is in need of higher level of care but will leave facility as soon as he arrives. Terrell endorses that patient did not enjoy his time at SN[facility] rehab in June 2020 for 6 weeks. Terrell endorses that patient's was auto parker of patient prior to her passing, and it is hard for Terrell to discuss higher level of care with patient. Terrell endorses that patient was having shoulder pain after his covid shot on Thursday. Plan: Patient to be admitted OBS and DCP to f/u with POC. 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 Yes History Provided By Patient,Medical Record Has Patient been admitted in last 30 No days? Prior Living Arrangements House Household Members none Type of transporation used prior to Drives own vehicle admit Independent with ADL's Yes Is patient alert and oriented? Yes Needs Assistance With Meal Prep,Home Chores / Shopping DME Already Rented / Owned FWW / Walker,Cane Additional Comment POC pending on further medical evalution of patient in acute care. Review Status In Process Please Provide Date Initial DC 06/24/21 Assessment Was Performed Next Review Type Continued Stay Review
[2021-06-24 15:57] LABS: Reflexed Lactate in 2 Hours Y
[2021-06-24 16:36] LABS: Lactate 2HR (Lactic Acid Rflx) 1.6 mmol/L (0.7-2.1)
[2021-06-24] MEDS: SODIUM CHLORIDE 0.9% 1,000 ML 1000 ML IV (18:27)
[2021-06-24 18:41] LABS: Appearance Urine UA CLEAR; Bilirubin Urine UA NEGATIVE (NEGATIVE); Color Urine UA YELLOW; Glucose Urine UA TRACE g/dL (Negative); Ketones Urine UA TRACE (NEGATIVE); Leukocyte Esterase Urine UA TRACE (NEGATIVE); Nitrite Urine UA NEGATIVE (Negative); Occult Blood Urine UA 3+ (Negative); Protein Urine UA 1+ (Negative); Specific Gravity Urine UA >=1.030 (1.000-1.035); Urobilinogen Urine UA 0.2 E.U./dL (0.2)
[2021-06-24 18:54] LABS: Bacteria Urine Occasional (0-1); Granular Casts Urine 1-5/LPF; Hyaline Casts Urine 1-5/LPF; Mucus Urine 2+ (Negative); RBC Urine 1-5/HPF (0-5/HPF); WBC Urine 1-5/HPF (0-5/HPF)
[2021-06-24 18:55] LABS: Culture Indicated Urine Specimen Cultured
--- NOTE | 2021-06-24 20:49 | P.HP_ITS ---
History of Present Illness History of Present Illness Date Patient Seen: 06/24/21 Time Patient Seen: 20:30 Chief complaint: Found Down Narrative: Mr. Morales is an 85M with PMH HTN, HL, BPH, TIA, cognitive impairment who comes in to the hospital after being on the floor for hours. He states that he began to feel unwell after getting a COVID vaccine a few days ago. He noted significant arm pain, malaise, and generalized weakness. Because of this yesterday at some point he states he decided to get down on the floor. He says he did not fall, did not have a head strike. He was too tired to get up. He was found on the floor by meals on wheel staff. He has no fevers/chills. No chest pain, shortness of breath. No dizziness. No nausea, vomiting, diarrhea, abd ominal pain. In the ED workup was done, vitals notable for elevated blood pressure. Labs notable for WBC 8.3, Hgb 15.7, plts 139. Creatinine 0.69. Troponin 0.035, CK 9404. BNP 2050. Lactate 2.6. He was ordered for IV fluid and lactate improved to normal. CT showed no acute process but prominent lateral ventricles. Chest xray showed no acute process. He was admitted for further treatment. Patient History Medical History Chickenpox (~1944) Colon polyps Elevated blood pressure reading Measles (~1945) Skin cancer (2014) Surgical History H/O local excision of skin lesion Family & Social History Family History Father No problems noted. Mother No problems noted. Grandfather No problems noted. Social History: household members none Prior Living Arrangements House Safety & Behavioral: Feels Safe in Current Yes Environment Been Physically Hurt or No Threatened By a Person Suicidal Ideation Description None Suicide Plan Description No Plan Tobacco & Substance use: Smoking Status Former smoker alcohol intake current alcohol intake frequency holiday/special occasion Substance Use Type does not use Meds Home Medications and Allergies Home Medications Medication Instructions Recorded Confirmed Type finasteride 5 mg tablet 5 mg PO DAILY #90 11/09/17 06/24/21 History aspirin 81 mg capsule 81 mg PO DAILY 06/24/21 06/24/21 History atorvastatin 40 mg tablet 40 mg PO BEDTIME 06/24/21 06/24/21 History lisinopril 10 mg tablet 10 mg PO DAILY 06/24/21 06/24/21 History Allergies Allergy/AdvReac Type Severity Reaction Status Date / Time No Known Drug Allergies Allergy Verified 06/24/21 16:18 Review of Systems Review of Systems Narrative: 14 systems reviewed and negative aside from HPI Exam Vital Signs (past 8 hours): - 06/24/21 18:00 06/24/21 18:01 06/24/21 18:30 Temperature Pulse Rate 97 H 82 Respiratory Rate 22 18 Blood Pressure 160/99 H Pulse Oximetry 96 06/24/21 19:00 06/24/21 19:30 06/24/21 20:00 Temperature Pulse Rate 66 72 86 Respiratory Rate 12 14 22 Blood Pressure 160/99 H Pulse Oximetry 100 06/25/21 00:00 Temperature 96.6 F L Pulse Rate 63 Respiratory Rate 20 Blood Pressure 131/63 Pulse Oximetry 97 Oxygen Delivery Method Room Air Oxygen Flow Rate 0 Narrative Exam Narrative: GEN: no acute distress HEENT: moist mucous membranes, PERRL NECK: trachea midline, no JVD CV: regular rate and rhythm, no murmurs PULM: clear bilaterally, no wheezes, rhonchi, rales ABD: soft, nontender, nondistended, no organomegaly EXT: warm and well perfused, no edema NEURO: awake, alert, oriented no focal deficits noted PSYCH: pleasant, cooperative Objective Labs Result Diagrams: 06/24/21 13:45 06/24/21 13:45 Labs: Laboratory Results - last 24 hr 06/24/21 06/24/21 06/24/21 13:45 13:45 13:45 WBC 8.3 RBC 4.81 Hgb 15.7 Hct 46.5 MCV 96.7 MCH 32.6 MCHC 33.7 RDW 13.3 Plt Count 139 L Neut % (Auto) 80.5 H Lymph % (Auto) 5.5 L [place] % (Auto) 13.3 Eos % (Auto) 0.5 L Baso % (Auto) 0.2 Neut # (Auto) 6700 Lymph # (Auto) 500 L [place] # (Auto) 1100 H Eos # (Auto) 0 Baso # (Auto) 0 PT 12.4 INR 1.1 APTT 28 Sodium 134 L Potassium 5.2 H Chloride 101 Carbon Dioxide 25 BUN 23 H Creatinine 0.69 Estimated GFR > 60.0 BUN/Creatinine Ratio 33.3 H Glucose 101 Lactate Calcium 8.6 Magnesium 2.2 Total Bilirubin 1.3 AST 290 H ALT 83 H Alkaline Phosphatase 109 Total Creatine Kinase 9404 H CK-MB (CK-2) 54.60 H CK-MB (CK-2) Rel Index 0.6 L Troponin I 0.035 H NT-Pro-B Natriuret Pep 2050 H Total Protein 7.1 Albumin 4.2 Globulin 2.9 Albumin/Globulin Ratio 1.4 Lipase 49 Urine Color Urine Appearance Urine pH Ur Specific [place] Urine Protein Urine Glucose (UA) Urine Ketones Urine Occult Blood Urine Nitrate Urine Bilirubin Urine Urobilinogen Ur Leukocyte Esterase Urine RBC Urine WBC Urine Bacteria Hyaline Casts Granular Casts Urine Mucus Ur Culture Indicated? SARS-CoV-2 (PCR) 06/24/21 06/24/21 06/24/21 13:45 13:45 16:12 WBC RBC Hgb Hct MCV MCH MCHC RDW Plt Count Neut % (Auto) Lymph % (Auto) [place] % (Auto) Eos % (Auto) Baso % (Auto) Neut # (Auto) Lymph # (Auto) [place] # (Auto) Eos # (Auto) Baso # (Auto) PT INR APTT Sodium Potassium Chloride Carbon Dioxide BUN Creatinine Estimated GFR BUN/Creatinine Ratio Glucose Lactate 2.6 H 1.6 Calcium Magnesium Total Bilirubin AST ALT Alkaline Phosphatase Total Creatine Kinase CK-MB (CK-2) CK-MB (CK-2) Rel Index Troponin I NT-Pro-B Natriuret Pep Total Protein Albumin Globulin Albumin/Globulin Ratio Lipase Urine Color Urine Appearance Urine pH Ur Specific [place] Urine Protein Urine Glucose (UA) Urine Ketones Urine Occult Blood Urine Nitrate Urine Bilirubin Urine Urobilinogen Ur Leukocyte Esterase Urine RBC Urine WBC Urine Bacteria Hyaline Casts Granular Casts Urine Mucus Ur Culture Indicated? SARS-CoV-2 (PCR) Negative 06/24/21 18:15 WBC RBC Hgb Hct MCV MCH MCHC RDW Plt Count Neut % (Auto) Lymph % (Auto) [place] % (Auto) Eos % (Auto) Baso % (Auto) Neut # (Auto) Lymph # (Auto) [place] # (Auto) Eos # (Auto) Baso # (Auto) PT INR APTT Sodium Potassium Chloride Carbon Dioxide BUN Creatinine Estimated GFR BUN/Creatinine Ratio Glucose Lactate Calcium Magnesium Total Bilirubin AST ALT Alkaline Phosphatase Total Creatine Kinase CK-MB (CK-2) CK-MB (CK-2) Rel Index Troponin I NT-Pro-B Natriuret Pep Total Protein Albumin Globulin Albumin/Globulin Ratio Lipase Urine Color Yellow Urine Appearance Clear Urine pH 5.0 Ur Specific [place] >=1.030 H Urine Protein 1+ H Urine Glucose (UA) Trace H Urine Ketones Trace H Urine Occult Blood 3+ H Urine Nitrate Negative Urine Bilirubin Negative Urine Urobilinogen 0.2 Ur Leukocyte Esterase Trace H Urine RBC 1-5/hpf Urine WBC 1-5/hpf Urine Bacteria Occasional (0-1) Hyaline Casts 1-5/lpf Granular Casts 1-5/lpf Urine Mucus 2+ H Ur Culture Indicated? Specimen cultured SARS-CoV-2 (PCR) Assessment & Plan Assessment & Plan narrative: Mr. Morales is an 85M with PMH TIA, HTN, BPH who presents with generalized weakness found to have rhabdomyolysis. 1. Generalized weakness -he has no focal deficits noted on exam -etiology is possibly secondary to reaction from COVID vaccine, he states he is already improving, less likely infection, CVA, consider NPH -if patient not improving consider NPH as possible etiology, consider further brain imaging -PT/OT ordered 2. Acute rhabdomyolysis -CK elevated at 9k -secondary to be down on ground for prolonged period of time -no renal dysfunction currently -continued IV fluids and trend CK daily 3. Hypertension -hold anti-hypertensives for now 4. BPH -continue finasteride 5. Thrombocytopenia -mild -no need for transfusion CODE: DNR Proxy: Terrell Morales, I have utilized all resources to reconcile patient's medications. Time Spent With Patient Critical Care time: I spent a total of [] minutes of critical care time on this patient's care today; this time is exclusive of procedural time. Quality VTE Deep Vein Thrombosis/Pulmonary Embolism Present on Admission: No MIPS - Admit I confirm the patient?s Advance Care Plan is present, Code status is documented, Surrogate decision maker is in patient?s record [If Yes, STOP here]: Yes
[2021-06-24] MEDS: ATORVASTATIN 20 MG TABLET 40 MG PO (22:16)
[2021-06-24] MEDS: SODIUM CHLORIDE 0.9% 1,000 ML 125 ML IV (22:20)
[2021-06-25] VITALS: BP 131/63; PULSE 63; RESP 20; TEMP 35.9; O2SAT 97
[2021-06-25 05:47] LABS: Add Manual Diff / Slide Review NO; Basophils Absolute Auto 0 /uL (0-100); Basophils Percent Auto 0.2 % (0-2); Eosinophils Absolute Auto 300 /uL (0-450); Eosinophils Percent Auto 6.1 % (2-4); Hematocrit 39.2 % (41-53); Hemoglobin 13.4 g/dL (13.5-17.5); Lymphocytes Absolute Auto 500 /uL (1100-4500); Lymphocytes Percent Auto 9.5 % (25-40); Mean Corpuscular HGB Conc 34.2 % (30-36); Mean Corpuscular Hemoglobin 32.7 PG (26-34); Mean Corpuscular Volume 95.7 fL (80-100); Monocytes Absolute Auto 800 /uL (0-900); Monocytes Percent Auto 14.6 % (3-14); Neutrophils Absolute Auto 3800 /uL (1500-7000); Neutrophils Percent Auto 69.6 % (50-75); Platelet Count 124 X10^3/uL (150-400); Red Blood Cell Count 4.09 X10^6/uL (4.5-5.9); Red Cell Distribution Width 13.5 % (11.6-14.8); White Blood Cell Count 5.5 X10^3/uL (4.5-11.0)
[2021-06-25 05:51] LABS: BUN Creatinine Ratio 23.9 (6-22); Blood Urea Nitrogen 16 mg/dL (9-20); Calcium 7.8 mg/dL (8.4-10.2); Carbon Dioxide 24 mmol/L (22-32); Chloride 106 mmol/L (98-107); Estimated Glomerular Filt Rate > 60.0 mL/min (>60); Glucose 95 mg/dL (80-110); HEMOLYSIS < 15 (0-50); Potassium 3.3 mmol/L (3.4-5.1); Sodium 135 mmol/L (137-145)
[2021-06-25 06:07] LABS: Creatine Kinase 5033 U/L (55-170)
[2021-06-25] MEDS: SODIUM CHLORIDE 0.9% 1,000 ML 125 ML IV ×2 (06:15→23:33)
[2021-06-25 07:23] VITALS: BP 132/63; PULSE 62; RESP 16; TEMP 37.4; O2SAT 97
[2021-06-25] MEDS: ASPIRIN 81 MG CHEW TAB PO (10:19)
[2021-06-25] MEDS: FINASTERIDE 5 MG TABLET PO (10:19)
[2021-06-25] MEDS: ENOXAPARIN 40 MG/0.4 ML SYRINGE SUBCUT (10:19)
--- NOTE | 2021-06-25 10:45 | PT.IIE ---
Medical History (Last Reviewed 06/25/21 @ 01:49 by Jf Cramer MD) Chickenpox (~1944) Colon polyps Elevated blood pressure reading Measles (~1945) Skin cancer (2015) Physical Therapy Inpatient Evaluation/Re-Eval M1 PT/OT-IP Prior Functional Status Start: 06/25/21 12:18 Freq: NEEDED Status: Active Protocol: Document 06/25/21 10:45 AB (Rec: 06/25/21 12:33 AB [email or web address]) Medical Review Prior Functional Status Medical History Reviewed Yes Communication able to make needs known but requires increase time to respond to questions and will need repetitions; is [place] but also with confusion Mobility and Gait pt stated that he is modified independent with all mobilities and ambulation using a tripod cane; stated that he has fall x 2 within the year; has HHPT Social History Household Members none Living Arrangements House Number of Floors (Floors) Two Floors Number of Stairs To Enter/Railing? pt stays on main level of the house no steps to enter the house Home Environment Standard Height Toilet,Walk in Shower,Tub/Shower Home Equipment Four Wheel Walker,Shower Seat with Backrest,Hand Held Shower ,Grab Bars Near Toilet,Grab Bars In Shower Additional Social History Comment has a tripod cane pt stated that he has a caregiver that comes in ~ 2-3x /week for 3 hours to assist him with meals, appointments/ groceries M2 PT-IP Current Condition Start: 06/25/21 12:18 Freq: NEEDED Status: Active Protocol: Document 06/25/21 10:45 AB (Rec: 06/25/21 12:33 AB [email or web address]) Physical Therapy Current Condition Current Condition Evaluation Date 06/25/21 Treatment Diagnosis rhabdomyolysis; difficulty in walking Onset Date 06/24/21 M3 PT-IP Subjective Start: 06/25/21 12:18 Freq: NEEDED Status: Active Protocol: Document 06/25/21 10:45 AB (Rec: 06/25/21 12:33 AB [email or web address]) Subjective Physical Therapy Visit Type Type Initial Evaluation Visit Start Time 10:45 Visit Stop Time 11:25 Total Visit Minutes 40 Number of SECURITY INSTALLER Visits 0 Physical Therapy Visit Comments Patient Comments agreeable to do PT M4 PT-IP Mobility and Gait Start: 06/25/21 12:18 Freq: NEEDED Status: Active Protocol: Document 06/25/21 10:45 AB (Rec: 06/25/21 12:33 AB [id number]) PT-Bed Mobility Assessment Supine to Sit Supine to Sit Maximum Assistance,1 Person Assistance PT-Transfer Assessment Sit to and From Stand Sit to and from Stand Maximum Assistance,1 Person Assistance,Use of Upper Extremities Equipment Transfer Assistive Device Gait Belt,Front Wheeled Walker Orthotic/Prosthetic Devices or Brace: No Transfers Transfer Destination Chair Transfer Technique Stand Step Pivot Transfer Ability Level of Assist Maximum Assistance,1 Person Assistance,Use of Upper Extremities Comments Mobility Comments completed supine to sit max A and max cues and needed 2 attempts to complete task. mod to max A for sitting balance with increase LOB posteriorly and to the L. completed sit to stand x 2 attempts max A and max cues. increase lateral side lean to the L. instructed regarding trunk control. pt completed step transfer using FWW to the chair max A and max cues. pt with difficulty following directs and seems to have some processing delay. pt agreed to do some ambulation. completed sit to stand from chair max A and max cues and ambulated using FWW max A and cues. NAC in room with chair follow. pt presents with wide based gait, small shuffling steps with increase posterior and lateral lean to the L. pt sat back on chair. positioned on chair. call light and table placed within reach. informed pt regarding currently level fo assistance and SNF recommendation. Gait Assessment Gait Gait Assistance Required: Maximum Assistance Distance (Feet) 12 Able to Maintain Weight Bearing Status Yes During Gait Assistive Devices Assistive Device Gait Belt,Front Wheeled Walker Orthotic/Prosthetic Devices or Brace: No Gait Deviations General Gait Pattern Ataxic,Decreased Stride Length ,Decreased Feet Clearance, Flexed Trunk,Wide Based Gait Factors Limiting Gait Function Factors Limiting Gait Function Decreased Activity Tolerance, Decreased Sensation,Decreased Strength,Difficulty Following Directions,Poor Balance,Poor Safety Awareness PT-Balance Assessment Sitting Balance and Reactions Static Sitting Balance Ability Fair Dynamic Sitting Balance Ability Poor Standing Balance and Reactions Dynamic Standing Balance Ability Poor Device Used FWW M5 PT-IP Objective Assessments Start: 06/25/21 12:18 Freq: NEEDED Status: Active Protocol: Document 06/25/21 10:45 AB (Rec: 06/25/21 12:33 AB [email or web address]) Orientation Orientation/Cognition Level of Alertness Alert Orientation Name Language Function Ability Hard of Hearing Safety Awareness Decreased Safety Awareness Memory Description Short Term Impaired Comments with confusion Gross Range of Motion Lower Extremity ROM Assessment Within Functional Limits Strength Lower Extremity Strength Hip 4-/5 Knee 4-/5 Muscle Tone Muscle Tone WNL Yes M6 PT-IP Treatment Start: 06/25/21 12:18 Freq: NEEDED Status: Active Protocol: Document 06/25/21 10:45 AB (Rec: 06/25/21 12:33 AB [email or web address]) Physical Therapy Treatment Education Education Provided Safety M7 PT-IP Assessment and Plan Start: 06/25/21 12:18 Freq: NEEDED Status: Active Protocol: Document 06/25/21 10:45 AB (Rec: 06/25/21 12:33 AB [email or web address]) PT Summary Assessment and Plan Potential Rehabilitation Potential Good Summary Impairments Pain,ROM,Strength,Balance, Coordination,Sensation,Tone, Cognition,Bed Mobility, Transfers,Gait,Activity Tolerance Assessment Summary pt requiring max A with mobility and with decrease standing balance and activity tolerance. pt will require 24 /7 assist availability at this time and will need SNF rehab to improve strength and mobility. will continue to assess progress. Goals Bed Mobility Goal Standby Assistance Transfer Goal Standby Assistance,Front Wheeled Walker Gait Goal Standby Assistance,Front Wheel Walker Gait Distance 200 Days to Meet Goals 10 Frequency of Treatment Frequency Of Treatment Once a Day Treatment Plan Physical Therapy Treatment Plan Bed Mobility Training,Transfer Training,Gait Training, Therapeutic Exercise,Balance Retraining,Discharge Planning, Hot or Cold Pack,Neuromuscular Re-ed,Coordination Retraining Precautions Other Precautions falls Recommendations To Nursing Amount of Assist Needed 1 Person Assist Discharge Recommendations PT Discharge Recommendations SNF Rehab Equipment Needed for Home Before FWW if pt goes home Discharge Transportation Needs at Discharge Private Vehicle,Wheelchair/ Cabulance
[2021-06-25 11:00] VITALS: BP 123/76; PULSE 62; RESP 16; TEMP 36.7; O2SAT 96
--- NOTE | 2021-06-25 12:35 | CM.DPC ---
Addendum entered by Rosalina Thorpe R.N. 06/25/21 16:13: Was able to speak to Terrell, patient's son. He stated, he might not like [facility], he was there before, but can talk to him about that. Son stated, my dad just doesn't want that many people in the home, he likes his privacy. Son stated, he is willing to pick his dad up tomorrow if needed, and he can have home health as well. He is looking into intermodal truck driver care facilities, has been looking at [facility], which he seemed to like. Can provide son with further resources if needed if he comes in tomorrow. Will keep referral at [facility] as back up. Addendum entered by Rosalina Thorpe R.N. 06/25/21 15:26: Anika at [facility] indicated that they can do a short skilled stay, as long as is shows that the rhabdo is resolving. She indicated, they have to have something to skill him with. Mentioned this to patient, and asked if this case maker can call his son, Terrell, about discharge plan. He gave permission to call him, he did not seem to think he needs rehab. Anika at [facility] has had patient before. Called patient's son, Terrell, did not leave a detailed message, but have a call out to him. [facility] can accept, but may need half-way plan with extended caregiver. Addendum entered by Rosalina Thorpe R.N. 06/25/21 13:12: Looked at P.T. notes, which indicate, max assist. They are recommending fpc versus home with FWW. Checked with Nehemiah in [place], and he indicated that patient will be inpatient as of 06/24. Went ahead and gave referral to Anika at [facility] to review. Will attempt to discuss with patient later today. Original Note: MADHURI Cont: Met with patient in his room. He had worked with therapy earlier this morning, and he was sitting up in his chair eating his lunch. He is pleasant, alert and oriented. Confirmed that he resides alone, and has a caregiver that comes in 3 times a week, named Jeanette. FEDERAL LAW CLERK had done initial assessment yesterday, and this was also indicated in her note. Patient stated, he is not driving, doesn't think he should, and indicated that Jeanette will take him to appointments. He also indicated that his caregiver does cleaning, and helps with meals. He confirmed that he does have Dr. Gamez as his primary provider, and fills his prescriptions, but also indicated, he would like to have a provider that's closer. Let him know that this meeting/event planner can provide him with resources, as [facility] is currently accepting new patients. Patient indicated, he felt very weak after getting the shot, and couldn't walk, but is feeling a lot better now. He indicated that he did not fall, just was laying on the ground because of weakness. He also confirmed that his son, Terrell Morales, is his POA, and lives in [place]. He indicated that he comes down frequently to see him. P:DCP to continue to follow. Will see how patient did with P.T. Home Health P.T. may also be an option for patient. Rosalina Tohrpe RN/Revenue Liaison
--- NOTE | 2021-06-25 14:18 | OT.IP.EVAL ---
Past Medical History (Last Reviewed 06/25/21 @ 01:49 by Jf Cramer MD) Chickenpox (~1944) Colon polyps Elevated blood pressure reading H/O local excision of skin lesion Measles (~1945) Skin cancer (2015) Surgical History (Last Reviewed 06/25/21 @ 01:49 by Jf Cramer MD) H/O local excision of skin lesion Occupational Therapy Inpatient Evaluation/Re-Eval M1 PT/OT-IP Prior Functional Status Start: 06/25/21 12:18 Freq: NEEDED Status: Active Protocol: Document 06/25/21 14:10 [facility] (Rec: 06/25/21 15:21 [facility] [id number]) Medical Review Prior Functional Status Medical History Reviewed Yes Communication able to make needs known but requires increase time to respond to questions and will need repetitions; is [place] but also with confusion Mobility and Gait pt stated that he is modified independent with all mobilities and ambulation using a tripod cane; stated that he had falls x 2 within the year; has HHPT Activities of Daily Living and IADL's Pt states that prior he is able to do all his ADL's and has caregivers to assist with appointments,meds on occasion, and meals. Social History Household Members none Living Arrangements House Number of Floors (Floors) Two Floors Number of Stairs To Enter/Railing? pt stays on main level of the house no steps to enter the house Home Environment Standard Height Toilet,Walk in Shower,Tub/Shower Home Equipment Four Wheel Walker,Shower Seat with Backrest,Hand Held Shower ,Grab Bars Near Toilet,Grab Bars In Shower Additional Social History Comment has a tripod cane pt stated that he has a caregiver that comes in ~ 2-3x /week for 3 hours to assist him with meals, appointments/ groceries M2 OT-IP Current Condition Start: 06/25/21 15:00 Freq: Status: Active Protocol: Document 06/25/21 14:10 [facility] (Rec: 06/25/21 15:21 [facility] [id number]) Occupational Therapy Current Condition Current Condition Evaluation Date 06/25/21 Treatment Diagnosis Generalized weakness, decreased mobility Diagnosis Onset Date 06/24/21 M3 OT- IP Subjective and Pain Start: 06/25/21 15:00 Freq: Status: Active Protocol: Document 06/25/21 14:10 [facility] (Rec: 06/25/21 15:21 [facility] [id number]) OT- Subjective Occupational Therapy Visit Type Type Initial Evaluation Visit Start Time 13:36 Visit Stop Time 14:18 Total Visit Minutes 42 Occupational Therapy Visit Comments Patient Comments Pt agreed to get up for OT eval. Patient/Caregiver Goals TO go home. OT Pain Assessment Pain When Pain Assessed At Rest Pain Present Pain Present Denied Pain M4 OT- IP ADL's Start: 06/25/21 15:00 Freq: Status: Active Protocol: Document 06/25/21 14:10 [facility] (Rec: 06/25/21 15:21 [facility] [id number]) OT BBP-Rhsg-Mhmuaby Comments OT Self-Feeding Comments NOt at meal time. OT ADL-Grooming Comments OT Grooming Comments Pt able to comb his hair while seated in the recliner. OT ADL-Oral Care Comments Oral Care Comments Pt states did earlier. OT ADL-Dressing General Eval Lower Body Dressing Ability Moderate Assistance Areas Needing Assistance Socks Comments OT Dressing Comments Assist to delio/doff his right socks. OT ADL-Toileting Comments OT Toileting Comments Pt not having to go at this time and gaona in place. OT ADL-Bathing Comments OT Bathing Comments Pt refused and to try in OT tomorrow if appropriate. M5 OT- IP IADL's Start: 06/25/21 15:00 Freq: Status: Active Protocol: Document 06/25/21 14:10 [facility] (Rec: 06/25/21 15:21 [facility] [id number]) OT-Instrumental Activities of Daily Living Deficits IADL Deficits Identified Deficits Home Safety Awareness Awareness of Need for Assistance at Home Decreased Awareness Ability to Problem Solve Emergency Able to Problem Solve Situations Medication Management Medication Management Comments Pt a bit forgetful and admits that he should be using a pill organizer so that he does not forget to take his medications. Money Management Money Management Comments Pt states his caregiver asisst him at times. Meal Preparation Meal Preparation Caregiver Provides Assist Rn Documentation Rn Documentation Caregiver Provides Assist M6 OT- IP Functional Cognition Start: 06/25/21 15:00 Freq: Status: Active Protocol: Document 06/25/21 14:10 [facility] (Rec: 06/25/21 15:21 [facility] [id number]) Cognitive Factors Limiting Selfcare Function Cognitive Ability Level of Alertness Alert Patient Orientation Name,Place,Situation Attention Span Ability Capable of Focused Attention, Capable of Sustained Attention Ability to Follow Commands Able to Follow One Step Commands with Increased Time, Able to Follow One Step Commands with Repetition Memory Description Short Term Impaired Safety Awareness Underestimates Need for Assistance Cognitive Tests SLUMS Pt scored 15/30 on the SLUMS which implies dementia for pt' s level of education. Pt scored 12/30 on 07/11/21 during last hospital admit. Pt not aware of the day (Thu.) or year ( 2001), only able to state 3 animals in one minutes able to recall 3/5 objects after time passed, drawing the numbers on the clock backwards and able to answer 2/4 questions right after paragraph read. Pt is hard of hearing which may also affect his score. Cognitive Comments Cognitive Assessment Comments Pt needing concrete vc to follow. OT- Vision and Hearing OT- Vision Assessment Visual Acuity Glasses For Reading Vision Assessment Comments Pt a bit hard of hearing. M7 OT- IP Mobility and Balance Start: 06/25/21 15:00 Freq: Status: Active Protocol: Document 06/25/21 14:10 [facility] (Rec: 06/25/21 15:21 [facility] [id number]) OT-Transfer Assessment Sit to and From Stand Sit to and from Stand Moderate Assistance,Maximum Assistance Comments Mobility Comments At this time pt just agreed to stand up from the recliner and needing from MODA x1 to MAX A x1. Pt states uses his lift chair to assist to stand and sleeps in his chair as well. OT- Balance Assessment Sitting Balance and Reactions Static Sitting Balance Ability Good Dynamic Sitting Balance Ability Fair Standing Balance and Reactions Static Standing Balance Ability Poor M8 OT- IP Objective Assessments Start: 06/25/21 15:00 Freq: Status: Active Protocol: Document 06/25/21 14:10 [facility] (Rec: 06/25/21 15:21 [facility] [id number]) OT Gross Range of Motion Upper Extremity Range of Motion Assessment Bilaterally Impaired OT- Coordination Assessment Comments Coordination Comments Difficulty to use his left hand to assist to doff his socks. OT-Muscle Tone Assessment Muscle Tone WNL Yes M9 OT- IP Assessment and Plan Start: 06/25/21 15:00 Freq: Status: Active Protocol: Document 06/25/21 14:10 [facility] (Rec: 06/25/21 15:21 [facility] [id number]) OT Summary Assessment and Plan Potential Rehabilitation Potential Good Analytic Complexity at Evaluation Moderate Summary OT Impairments Range of Motion,Strength, Balance,Coordination, Functional Cognition, Functional Mobility,Self- Feeding,Grooming,Dressing, Toileting,Bathing,Toilet Transfers,Shower Transfers, Activity Tolerance Progress Towards Goals Slow Progress due to Medical Issues,Slow Progress due to Activity Tolerance,Slow Progress due to Cognition Assessment Summary Pt MOD compexity and main barriers are decreased mobility, short term memory, and now needing MOD to MAXA x1 to stand. Pt is insistent that he can take care of himself and adamant that he can go home. At this time suggest pt to go to skilled rehab. Goals Grooming Goal Independent Dressing Goal Independent Toileting Goal Independent Bathing Goal Independent Toilet Transfer Goal Independent Shower Transfer Goal Independent Days to Meet Goals 25 Frequency of Treatment Frequency Of Treatment Once a Day Treatment Plan OT Treatment Plan ADL Training,Functional Cognition Training,Functional Mobility,Patient/Family Education,Discharge Planning Other Treatment Recommendations and Next Stand at sink for ADL's. Treatment Focus Discharge Recommendations OT Discharge Recommendations SNF Rehab Other Discharge Recommendations Pending progress SNF versus home with 16/02 assist and HH Transportation Needs at Discharge Wheelchair/Cabulance
--- NOTE | 2021-06-25 14:55 | PC.NURSE ---
Addendum entered by Belem Orellana R.N. 06/25/21 18:16: Patient is sitting up in his chair quietly and denies pain or discomfort. Resting and ate well at dinner. Original Note: 0830- Patient has some abrasions to his l.cheek, arms, legs, and side. He is alert and oriented x3, and denies pain. One to two person assist from the chair to the bed and to the commode. He voices no complaints of pain and is tolerating his iv.
[2021-06-25] MEDS: POTASSIUM CHLORIDE 20 MEQ TAB 40 MEQ PO ×2 (15:22→21:41)
--- NOTE | 2021-06-25 16:32 | PM.PN.1 ---
Subjective Subjective Date Patient Seen: 06/25/21 Interval history: Patient is an 85-year-old male who was admitted to the hospital after COVID 19 booster shot. Patient felt quite weak and had aching of the upper extremities. He laid down for an unknown period of time. He was found to have rhabdomyolysis and admitted to the hospital for further evaluation. He reports he feels significantly improved today although he has occasional weakness. Overall he feels much better. Exam Vital Signs (past 8 hours): - 06/25/21 11:00 Temperature 98.1 F Pulse Rate 62 Respiratory Rate 16 Blood Pressure 123/76 Pulse Oximetry 96 Oxygen Delivery Method Room Air,Nasal Cannula Oxygen Flow Rate 0 Narrative Exam Narrative: Pleasant male lying in bed in no obvious distress Resp Other: Lungs clear to auscultation Cardio Other: Cardiac exam: Regular rate and rhythm normal S1-S2 GI Other: Abdomen soft nontender nondistended Extrem Other: Extremity no edema Objective Labs Result Diagrams: 06/25/21 05:17 06/25/21 05:17 Labs: Laboratory Results - last 24 hr 06/24/21 06/24/21 06/25/21 16:12 18:15 05:17 WBC 5.5 RBC 4.09 L Hgb 13.4 L Hct 39.2 L MCV 95.7 MCH 32.7 MCHC 34.2 RDW 13.5 Plt Count 124 L Neut % (Auto) 69.6 Lymph % (Auto) 9.5 L [place] % (Auto) 14.6 H Eos % (Auto) 6.1 H Baso % (Auto) 0.2 Neut # (Auto) 3800 Lymph # (Auto) 500 L [place] # (Auto) 800 Eos # (Auto) 300 Baso # (Auto) 0 Sodium Potassium Chloride Carbon Dioxide BUN Creatinine Estimated GFR BUN/Creatinine Ratio Glucose Lactate 1.6 Calcium Total Creatine Kinase Urine Color Yellow Urine Appearance Clear Urine pH 5.0 Ur Specific [place] >=1.030 H Urine Protein 1+ H Urine Glucose (UA) Trace H Urine Ketones Trace H Urine Occult Blood 3+ H Urine Nitrate Negative Urine Bilirubin Negative Urine Urobilinogen 0.2 Ur Leukocyte Esterase Trace H Urine RBC 1-5/hpf Urine WBC 1-5/hpf Urine Bacteria Occasional (0-1) Hyaline Casts 1-5/lpf Granular Casts 1-5/lpf Urine Mucus 2+ H Ur Culture Indicated? Specimen cultured 06/25/21 06/25/21 05:17 05:17 WBC RBC Hgb Hct MCV MCH MCHC RDW Plt Count Neut % (Auto) Lymph % (Auto) [place] % (Auto) Eos % (Auto) Baso % (Auto) Neut # (Auto) Lymph # (Auto) [place] # (Auto) Eos # (Auto) Baso # (Auto) Sodium 135 L Potassium 3.3 L D Chloride 106 Carbon Dioxide 24 BUN 16 Creatinine 0.67 Estimated GFR > 60.0 BUN/Creatinine Ratio 23.9 H Glucose 95 Lactate Calcium 7.8 L Total Creatine Kinase 5033 H D Urine Color Urine Appearance Urine pH Ur Specific [place] Urine Protein Urine Glucose (UA) Urine Ketones Urine Occult Blood Urine Nitrate Urine Bilirubin Urine Urobilinogen Ur Leukocyte Esterase Urine RBC Urine WBC Urine Bacteria Hyaline Casts Granular Casts Urine Mucus Ur Culture Indicated? [facility] Medical History Chickenpox (~1944) Colon polyps Elevated blood pressure reading Measles (~1945) Skin cancer (2014) Surgical History H/O local excision of skin lesion Family History Father No problems noted. Mother No problems noted. Grandfather No problems noted. Social History household members: none Smoking Status: Former smoker alcohol intake: current Assessment & Plan Assessment & Plan narrative: Generalized weakness -he has no focal deficits noted on exam -etiology is possibly secondary to reaction from COVID vaccine, he states he is already improving, less likely infection, CVA, consider NPH -if patient not improving consider NPH as possible etiology, consider further brain imaging -PT/OT ordered 2. Acute rhabdomyolysis -CK elevated at 9k, today 5500, will continue IV fluids and recheck in am -secondary to be down on ground for prolonged period of time -no renal dysfunction currently -continued IV fluids and trend CK daily 3. Hypertension -hold anti-hypertensives for now -resume home medications 4. BPH -continue finasteride 5. Thrombocytopenia -mild -no need for transfusion 6. Hyperlipidemia -hold statin given elevated CPK I have utlized all available resources to review, update, and confirm the patients home medications Time Spent With Patient Critical Care time: I spent a total of [] minutes of critical care time on this patient's care today; this time is exclusive of procedural time. Quality VTE Deep Vein Thrombosis/Pulmonary Embolism Present on Admission: No
[2021-06-25 17:05] VITALS: BP 122/49; PULSE 78; RESP 16; TEMP 37.1; O2SAT 97
[2021-06-25 19:00] VITALS: O2SAT 98
[2021-06-25 21:00] VITALS: BP 133/67; PULSE 81; RESP 18; TEMP 36.7; O2SAT 97
[2021-06-26] VITALS (11 sets, daily range): BP systolic 132–151; BP diastolic 56–78; PULSE 56–95; RESP 16–18; TEMP 36.2–37.2; O2SAT 96–99
[2021-06-26 05:48] LABS: Add Manual Diff / Slide Review NO; Basophils Absolute Auto 0 /uL (0-100); Basophils Percent Auto 0.5 % (0-2); Eosinophils Absolute Auto 400 /uL (0-450); Eosinophils Percent Auto 8.9 % (2-4); Hematocrit 36.9 % (41-53); Hemoglobin 12.6 g/dL (13.5-17.5); Lymphocytes Absolute Auto 800 /uL (1100-4500); Lymphocytes Percent Auto 16.6 % (25-40); Mean Corpuscular HGB Conc 34.1 % (30-36); Mean Corpuscular Hemoglobin 32.9 PG (26-34); Mean Corpuscular Volume 96.5 fL (80-100); Monocytes Absolute Auto 800 /uL (0-900); Monocytes Percent Auto 15.8 % (3-14); Neutrophils Absolute Auto 2800 /uL (1500-7000); Neutrophils Percent Auto 58.2 % (50-75); Platelet Count 120 X10^3/uL (150-400); Red Blood Cell Count 3.82 X10^6/uL (4.5-5.9); Red Cell Distribution Width 13.5 % (11.6-14.8); White Blood Cell Count 4.8 X10^3/uL (4.5-11.0)
[2021-06-26 06:09] LABS: BUN Creatinine Ratio 25.4 (6-22); Blood Urea Nitrogen 18 mg/dL (9-20); Calcium 7.7 mg/dL (8.4-10.2); Carbon Dioxide 27 mmol/L (22-32); Chloride 111 mmol/L (98-107); Estimated Glomerular Filt Rate > 60.0 mL/min (>60); Glucose 92 mg/dL (80-110); HEMOLYSIS < 15 (0-50); Potassium 3.8 mmol/L (3.4-5.1); Sodium 139 mmol/L (137-145)
[2021-06-26 06:11] LABS: Creatine Kinase 2439 U/L (55-170)
[2021-06-26] MEDS: ENOXAPARIN 40 MG/0.4 ML SYRINGE SUBCUT (08:25)
[2021-06-26] MEDS: SODIUM CHLORIDE 0.9% 1,000 ML 125 ML IV ×2 (08:25→16:52)
[2021-06-26] MEDS: FINASTERIDE 5 MG TABLET PO (08:26)
[2021-06-26] MEDS: ASPIRIN 81 MG CHEW TAB PO (08:26)
[2021-06-26] MEDS: lisinopriL 10 MG TABLET PO (08:26)
--- NOTE | 2021-06-26 10:35 | PT.IPTN ---
Current Diagnoses Rhabdomyolysis (06/24/21) Physical Therapy Treatment Note M2 PT-IP Current Condition Start: 06/25/21 12:18 Freq: NEEDED Status: Active Protocol: Document 06/26/21 10:00 SP (Rec: 06/26/21 15:41 SP [id number]) Physical Therapy Current Condition Current Condition Evaluation Date 06/25/21 Treatment Diagnosis rhabdomyolysis; difficulty in walking Onset Date 06/24/21 M3 PT-IP Subjective Start: 06/25/21 12:18 Freq: NEEDED Status: Active Protocol: Document 06/26/21 10:00 SP (Rec: 06/26/21 15:41 SP [id number]) Subjective Physical Therapy Visit Type Type Initial Evaluation Visit Start Time 10:00 Visit Stop Time 10:35 Total Visit Minutes 35 Notes Vitals taken: supine: BP 112/61 HR 77 seated: 137/ 56, HR 46 ( automated) Number of SEAM CHECKER Visits 1 Physical Therapy Visit Comments Patient Comments agreeable to do PT M4 PT-IP Mobility and Gait Start: 06/25/21 12:18 Freq: NEEDED Status: Active Protocol: Document 06/26/21 10:00 SP (Rec: 06/26/21 15:41 SP [id number]) PT-Bed Mobility Assessment Supine to Sit Supine to Sit Contact Guard Assistance, Minimal Assistance,Bedrails Scooting Scooting to Edge of Bed Contact Guard Assistance PT-Transfer Assessment Sit to and From Stand Sit to and from Stand Minimal Assistance,Moderate Assistance,1 Person Assistance ,Use of Upper Extremities Equipment Transfer Assistive Device Gait Belt,Front Wheeled Walker Orthotic/Prosthetic Devices or Brace: No Transfers Transfer Destination Chair Transfer Technique Stand Step Pivot Transfer Ability Level of Assist Contact Guard Assistance, Minimal Assistance,1 Person Assistance,Use of Upper Extremities Comments Mobility Comments Pt completed supine>sit CGA- 10%A for trunk righting with use of bed rail,scoot to EOB cGA cued fully to allow BLE flat on floor. Sitting BUE contact bed for self support. Sit>stand Mod A x1 intially, cued proper hand placement and quad facilitation to allow full stand. Noted standing sway but self recovery during standing BP assessment. Gait around room using FWW, cued body closer to FWW, increase stride and foot clearance and BLE inside FWW during turns for safety, approx 60 ft CG- 10%A (2laps in room) to support lateral trunk lean R and noted R knee flexion during WB LLE advancement, no LOB improved with cuing upright posture. SEAM CHECKER managed IV pole. Pt Step pivot back to chair, cued fully with FWW and reaching back Min A for slow descent to chair. Pt had call light, chair alarmed and all needs in reach before left . Pt stated has a 4WW at home but is to quick and liked using the FWW for support, would like to get one for home use. SEAM CHECKER discussed need for assist sit<> stand and safety balance during gait recommending SNF vs 24/7 assist available HHPT for improved strength for functional mobility. Pt reported doesn't have anyone to come 24/7 only few days a week for few hrs not sure can get that but doesn't want to go to SNF. Pt really wants to go home to do bills and take care of his dogs, pt didn't seem to understand lack of strength and support needs during tx. Will continue to assess progress. Gait Assessment Gait Gait Assistance Required: Contact Guard Assist,Minimum Assistance,1 Person Assist Distance (Feet) 60 Able to Maintain Weight Bearing Status Yes During Gait Assistive Devices Assistive Device Gait Belt,Front Wheeled Walker Orthotic/Prosthetic Devices or Brace: No Gait Deviations General Gait Pattern Ataxic,Decreased Stride Length ,Decreased Feet Clearance, Flexed Trunk,Lateral Trunk Lean,Wide Based Gait Factors Limiting Gait Function Factors Limiting Gait Function Decreased Activity Tolerance, Decreased Sensation,Decreased Strength,Difficulty Following Directions,Poor Balance,Poor Safety Awareness Comments Gait Comments Flexed postured shuffle like gait using fWW, CG- Min A, lateral R trunk lean, improves with cues posture/ increase foot clearance, stride and feet inside FWW during turns. Stair Climbing Assessment Comments Stair Climbing Comments Does not have stairs. PT-Balance Assessment Sitting Balance and Reactions Static Sitting Balance Ability Good Dynamic Sitting Balance Ability Good Standing Balance and Reactions Static Standing Balance Ability Good Dynamic Standing Balance Ability Fair Device Used FWW M5 PT-IP Objective Assessments Start: 06/25/21 12:18 Freq: NEEDED Status: Active Protocol: Document 06/25/21 10:45 AB (Rec: 06/25/21 12:33 AB [id number]) Orientation Orientation/Cognition Level of Alertness Alert Orientation Name Language Function Ability Hard of Hearing Safety Awareness Decreased Safety Awareness Memory Description Short Term Impaired Comments with confusion Gross Range of Motion Lower Extremity ROM Assessment Within Functional Limits Strength Lower Extremity Strength Hip 4-/5 Knee 4-/5 Muscle Tone Muscle Tone WNL Yes M6 PT-IP Treatment Start: 06/25/21 12:18 Freq: NEEDED Status: Active Protocol: Document 06/26/21 10:00 SP (Rec: 06/26/21 15:41 SP [id number]) Physical Therapy Treatment Education Education Provided Safety Other Treatments Other Treatment Performed Education on not use home lift chair, find surface can get up from for LE and funcctional strengthening with verbal understanding. M7 PT-IP Assessment and Plan Start: 06/25/21 12:18 Freq: NEEDED Status: Active Protocol: Document 06/26/21 10:00 SP (Rec: 06/26/21 15:41 SP [id number]) PT Summary Assessment and Plan Potential Rehabilitation Potential Good Summary Impairments Pain,ROM,Strength,Balance, Coordination,Sensation,Tone, Cognition,Bed Mobility, Transfers,Gait,Activity Tolerance Progress Towards Goals Progressing Toward Goals,Slow Progress due to Activity Tolerance,Slow Progress - Other Assessment Summary Pt requiring CGA-10% A HOB flat bed mobility, sit<>stand mod A initially coming to standing at EOB with cues for proper hand placement push from bed, gait CG- Min A with R lateral trunk lean. REcommending SNF vs 24/7 available HHPT due to increase physical support required, to improve strength functional mobility. Will need FWW prior to safe DC home. Goals Bed Mobility Goal Standby Assistance Transfer Goal Standby Assistance,Front Wheeled Walker Gait Goal Standby Assistance,Front Wheel Walker Gait Distance 200 Days to Meet Goals 10 Frequency of Treatment Frequency Of Treatment Once a Day Treatment Plan Physical Therapy Treatment Plan Bed Mobility Training,Transfer Training,Gait Training, Therapeutic Exercise,Balance Retraining,Discharge Planning, Hot or Cold Pack,Neuromuscular Re-ed,Coordination Retraining Other Recommendations and Next Treatment bed mob, transfers, gait FWW Focus further distance. Precautions Other Precautions falls Recommendations To Nursing Amount of Assist Needed 1 Person Assist Discharge Recommendations PT Discharge Recommendations Home with 24/7 Assist Available,Home Health,SNF Rehab Equipment Needed for Home Before FWW if pt goes home Discharge Transportation Needs at Discharge Private Vehicle,Wheelchair/ Cabulance
--- NOTE | 2021-06-26 10:40 | OT.IP.TRT ---
Occupational Therapy Treatment Note M2 OT-IP Current Condition Start: 06/25/21 15:00 Freq: Status: Active Protocol: Document 06/25/21 14:10 [facility] (Rec: 06/25/21 15:21 [facility] [id number]) Occupational Therapy Current Condition Current Condition Evaluation Date 06/25/21 Treatment Diagnosis Generalized weakness, decreased mobility Diagnosis Onset Date 06/24/21 M3 OT- IP Subjective and Pain Start: 06/25/21 15:00 Freq: Status: Active Protocol: Document 06/26/21 10:40 [facility] (Rec: 06/26/21 12:55 [facility] [id number]) OT- Subjective Occupational Therapy Visit Type Type Treatment Note Visit Start Time 10:40 Visit Stop Time 11:40 Total Visit Minutes 60 Occupational Therapy Visit Comments Patient Comments Pt agreed to work with OT. Patient/Caregiver Goals Pt insistent on going home. OT Pain Assessment Pain When Pain Assessed At Rest Pain Present Pain Present Denied Pain M4 OT- IP ADL's Start: 06/25/21 15:00 Freq: Status: Active Protocol: Document 06/26/21 10:40 [facility] (Rec: 06/26/21 12:55 [facility] [id number]) OT [id number] Comments OT Self-Feeding Comments NOt at meal time. OT ADL-Grooming General Evaluation Grooming Ability Standby Assistance Areas Needing Assistance Retrieving/Set-up of Grooming Items Comments OT Grooming Comments Pt able to stand with FWW at the sink in order to go grooming needs today. OT ADL-Oral Care General Eval Oral Care Ability Independent OT ADL-Dressing General Eval Lower Body Dressing Ability Moderate Assistance Areas Needing Assistance Socks Comments OT Dressing Comments Educated pt to be able to stretch his hip flexors so able to be more flexible to reach his socks. Pt still having difficulty with right sock. Able to try sock aid with pt and pt states just will not wear socks at home as it is too much trouble for him. OT ADL-Toileting Comments OT Toileting Comments Pt not having to go. OT ADL-Bathing Comments OT Bathing Comments Pt refused adamantly. Pt states I have showered for years and have the perfect set-up at home how I like it. M5 OT- IP IADL's Start: 06/25/21 15:00 Freq: Status: Active Protocol: Document 06/25/21 14:10 [facility] (Rec: 06/25/21 15:21 [facility] [id number]) OT-Instrumental Activities of Daily Living Deficits IADL Deficits Identified Deficits Home Safety Awareness Awareness of Need for Assistance at Home Decreased Awareness Ability to Problem Solve Emergency Able to Problem Solve Situations Medication Management Medication Management Comments Pt a bit forgetful and admits that he should be using a pill organizer so that he does not forget to take his medications. Money Management Money Management Comments Pt states his caregiver assist him at times. Meal Preparation Meal Preparation Caregiver Provides Assist Chief Operator Hydroformer Chief Operator Hydroformer Caregiver Provides Assist M6 OT- IP Functional Cognition Start: 06/25/21 15:00 Freq: Status: Active Protocol: Document 06/26/21 10:40 [facility] (Rec: 06/26/21 12:55 [facility] [id number]) Cognitive Factors Limiting Selfcare Function Cognitive Ability Level of Alertness Alert Patient Orientation Name,Place,Situation Attention Span Ability Capable of Focused Attention, Capable of Sustained Attention Ability to Follow Commands Able to Follow One Step Commands with Increased Time, Able to Follow One Step Commands with Repetition Memory Description Short Term Impaired,Working Impaired Safety Awareness Underestimates Need for Assistance Problem Solving Ability Needs Assist to Identify Solutions Cognitive Comments Cognitive Assessment Comments Pt is very slow to process and problem solve. Pt insistent that he is fine and does not need to have someone home with him at all times. Pt scored 400seconds and did not complete Reading Making Part B which implies severe impairments for visual attention, task switching, speed of processing, executive functioning, and mental flexibility. Pt needing cues to keep the FWW closer to him. M7 OT- IP Mobility and Balance Start: 06/25/21 15:00 Freq: Status: Active Protocol: Document 06/26/21 10:40 [facility] (Rec: 06/26/21 12:55 [facility] [id number]) OT-Transfer Assessment Sit to and From Stand Sit to and from Stand Standby Assistance,Contact Guard Assistance Transfers Transfer Ability Standby Assistance,Contact Guard Assistance Technique Transfer Destination Bed Devices Transfer Assistive Devices Gait Belt,Front Wheeled Walker Comments Mobility Comments Pt needs increase time to stand close SBA and able to walk to the sink with CGA to close SBA with FWW. . OT- Gait Assessment Comments Gait Ability Comments CGA with FWW in the room. OT- Balance Assessment Sitting Balance and Reactions Static Sitting Balance Ability Good Dynamic Sitting Balance Ability Good Standing Balance and Reactions Static Standing Balance Ability Fair Dynamic Standing Balance Ability Poor M8 OT- IP Objective Assessments Start: 06/25/21 15:00 Freq: Status: Active Protocol: Document 06/25/21 14:10 [facility] (Rec: 06/25/21 15:21 [facility] [id number]) OT Gross Range of Motion Upper Extremity Range of Motion Assessment Bilaterally Impaired OT- Coordination Assessment Comments Coordination Comments Difficulty to use his left hand to assist to doff his socks. OT-Muscle Tone Assessment Muscle Tone WNL Yes M9 OT- IP Assessment and Plan Start: 06/25/21 15:00 Freq: Status: Active Protocol: Document 06/26/21 10:40 [facility] (Rec: 06/26/21 12:55 [facility] [id number]) OT Summary Assessment and Plan Potential Rehabilitation Potential Good Analytic Complexity at Evaluation Moderate Summary OT Impairments Range of Motion,Strength, Balance,Coordination, Functional Cognition, Functional Mobility,Self- Feeding,Grooming,Dressing, Toileting,Bathing,Toilet Transfers,Shower Transfers, Activity Tolerance Progress Towards Goals Progressing Toward Goals Assessment Summary Pt much improve for mobility however still decreased for functional cognitive and safety awareness and insight to his needs. Pt would benefit from 24/7 assist prior to discharge versus skilled rehab . Goals Grooming Goal Independent Dressing Goal Independent Toileting Goal Independent Bathing Goal Independent Toilet Transfer Goal Independent Shower Transfer Goal Independent Days to Meet Goals 15 Frequency of Treatment Frequency Of Treatment Once a Day Treatment Plan OT Treatment Plan ADL Training,Functional Cognition Training,Functional Mobility,Patient/Family Education,Discharge Planning Other Treatment Recommendations and Next shower Treatment Focus Discharge Recommendations OT Discharge Recommendations Home with 24/7 Assist Available,Home Health,SNF Rehab,Home vs SNF Transportation Needs at Discharge Private Vehicle,Wheelchair/ Cabulance
--- NOTE | 2021-06-26 12:58 | PM.PN.1 ---
Subjective Subjective Date Patient Seen: 06/26/21 Interval history: 85-year-old male admitted to the hospital with rhabdomyolysis. Patient denies any pain today. He does have limited mobility. He was unable to significantly ambulate with PT OT and OT. He is deemed unsafe to return home Exam Vital Signs (past 8 hours): - 06/26/21 08:00 06/26/21 08:42 06/26/21 08:57 Temperature 97.3 F L Pulse Rate 95 H Respiratory Rate 18 Blood Pressure 139/73 Pulse Oximetry 96 98 98 Oxygen Delivery Method Room Air Oxygen Flow Rate 0 Narrative Exam Narrative: Delightful gentleman lying in bed in no obvious distress Resp Other: Lungs clear to auscultation Cardio Other: Cardiac exam regular rate and rhythm normal S1-S2 GI Other: Abdomen soft nontender nondistended Extrem Other: Extremity no edema Objective Labs Result Diagrams: 06/26/21 05:18 06/26/21 05:18 Labs: Laboratory Results - last 24 hr 06/26/21 06/26/21 06/26/21 05:18 05:18 05:18 WBC 4.8 RBC 3.82 L Hgb 12.6 L Hct 36.9 L MCV 96.5 MCH 32.9 MCHC 34.1 RDW 13.5 Plt Count 120 L Neut % (Auto) 58.2 Lymph % (Auto) 16.6 L Island % (Auto) 15.8 H Eos % (Auto) 8.9 H Baso % (Auto) 0.5 Neut # (Auto) 2800 Lymph # (Auto) 800 L Island # (Auto) 800 Eos # (Auto) 400 Baso # (Auto) 0 Sodium 139 Potassium 3.8 Chloride 111 H Carbon Dioxide 27 BUN 18 Creatinine 0.71 Estimated GFR > 60.0 BUN/Creatinine Ratio 25.4 H Glucose 92 Calcium 7.7 L Total Creatine Kinase 2439 H D [facility] Medical History Chickenpox (~1944) Colon polyps Elevated blood pressure reading Measles (~1945) Skin cancer (2014) Surgical History H/O local excision of skin lesion Family History Father No problems noted. Mother No problems noted. Grandfather No problems noted. Social History household members: none Smoking Status: Former smoker alcohol intake: current Assessment & Plan Assessment & Plan narrative: Generalized weakness -he has no focal deficits noted on exam -etiology is possibly secondary to reaction from COVID vaccine, he states he is already improving, less likely infection, CVA, consider NPH -if patient not improving consider NPH as possible etiology, consider further brain imaging -PT/OT ordered -patient with significant weakness, he has not been very mobile at home, he is unsafe to return home. -plans underway for possible subacute rehab evaluation 2. Acute rhabdomyolysis -CK elevated at 9k, today 5500, will continue IV fluids and recheck in am -secondary to be down on ground for prolonged period of time -no renal dysfunction currently -continued IV fluids and trend CK daily -CPK improved today, 2439 -continue IV hydration -recheck CPK in the morning 3. Hypertension -hold anti-hypertensives for now -resume home medications 4. BPH -continue finasteride 5. Thrombocytopenia -mild -no need for transfusion 6. Hyperlipidemia -hold statin given elevated CPK Anticipate discharge to nursing home Time Spent With Patient Critical Care time: I spent a total of [] minutes of critical care time on this patient's care today; this time is exclusive of procedural time. Quality VTE Deep Vein Thrombosis/Pulmonary Embolism Present on Admission: No
--- NOTE | 2021-06-26 13:50 | CM.DPC ---
Addendum entered by PATI Stovall 06/26/21 15:27: ADD: Return call from pt's son/BRITTANEY Tejada stating he just spoke to his dad (pt) and pt is very stubborn and resistant to increased CG in the home as currently pt has CG 2x week but initially it was 7x a week but pt refused that many days. Son preference would be SNF at d/c but understands that pt will likely decline SNF and wants home and son agreeable with [facility] referral and son states if pt refuses SNF then he is willing to transport pt home tomorrow if stable and can stay one day/night with pt and will continue to attempt to encourage pt to allow increased in-home CG and HH. JUANPABLO faxed [facility] new referral and will determine with pt tomorrow if he is willing to d/c to [facility] for rehab vs home via son POV and new [facility] referral and F2F needed. BF Original Note: DCP Cont: Per MD, pt making progress and may be stable for d/c tomorrow and recommending SNF. Per PT/OT, pt made some progress today and required less assist with transfers and mobility but still at least CGA and quite unsteady on his feet. Recommending ideally SNF rehab but if family could stay 24/7 for at least a few days and HH then could possibly d/c home but pt scored 15/30 on SLUMS and some safety awareness issues and high fall risk. Pt states his preference is home with HH and does not seem aware of his deficits and wants home so he can take care of my pet and things that need to be done around the house. Pt does not decline SNF but preference is home. JUANPABLO spoke to Anika at [facility] and confirms they can accept tomorrow if pt stable for d/c and likely will need updated COVID swab prior to d/c and request copy of COVID vax status. STEPHANIE Bobby kindly printed off pt's COVID vaccination status and behind facesheet with [facility]. JUANPABLO called pt's son/BRITTANEY Tejada and left detailed msg with safety and fall risk for home to see if family could stay 24/7 and HH otherwise [facility] can accept. Requested call back from rafael Tejada for d/c planning. JUANPABLO made initial referral to [facility] based on vendor calendar and faxed clinicals to review and if deemed safe for d/c home with HH then F2F will be needed. Plan: SW to follow closely for return call from son to determine home with family 16/02 and [facility] vs [facility] rehab. PATI Stovall
[2021-06-27] VITALS: BP 153/83; PULSE 80; RESP 18; TEMP 37.2; O2SAT 97
[2021-06-27] MEDS: SODIUM CHLORIDE 0.9% 1,000 ML 125 ML IV (01:06)
[2021-06-27 06:00] VITALS: BP 132/78; PULSE 82; RESP 18; TEMP 37.1; O2SAT 95
[2021-06-27 06:36] LABS: Alanine Aminotransferase 68 IU/L (<50); Albumin 2.8 g/dL (3.5-5.0); Albumin Globulin Ratio 1.2 (1.0-2.8); Alkaline Phosphatase 87 U/L (38-126); Aspartate Aminotransferase 99 IU/L (17-59); BUN Creatinine Ratio 20.3 (6-22); Bilirubin Total 0.6 mg/dL (0.2-1.3); Blood Urea Nitrogen 14 mg/dL (9-20); Carbon Dioxide 28 mmol/L (22-32); Chloride 112 mmol/L (98-107); Creatine Kinase 899 U/L (55-170); Estimated Glomerular Filt Rate > 60.0 mL/min (>60); Globulin 2.3 g/dL (1.7-4.1); Glucose 86 mg/dL (80-110); HEMOLYSIS < 15 (0-50); Potassium 3.7 mmol/L (3.4-5.1); Sodium 140 mmol/L (137-145); Total Protein 5.1 g/dL (6.3-8.2)
[2021-06-27 06:48] LABS: NT-proBNP (BNP-Adult 18+) 1420 pg/mL (<450); Troponin I < 0.012 ng/mL (0.01-0.034)
--- NOTE | 2021-06-27 07:32 | P.DS_ITS ---
History of Present Illness History of Present Illness Date Patient Seen: 06/27/21 Time Patient Seen: 07:32 Chief complaint: Found Down Narrative: Mr. Morales is an 85M with PMH HTN, HL, BPH, TIA, cognitive impairment who comes in to the hospital after being on the floor for hours. He states that he began to feel unwell after getting a COVID vaccine a few days ago. He noted significant arm pain, malaise, and generalized weakness. Because of this yesterday at some point he states he decided to get down on the floor. He says he did not fall, did not have a head strike. He was too tired to get up. He was found on the floor by meals on wheel staff. He has no fevers/chills. No chest pain, shortness of breath. No dizziness. No nausea, vomiting, diarrhea, abd ominal pain. In the ED workup was done, vitals notable for elevated blood pressure. Labs notable for WBC 8.3, Hgb 15.7, plts 139. Creatinine 0.69. Troponin 0.035, CK 9404. BNP 2050. Lactate 2.6. He was ordered for IV fluid and lactate improved to normal. CT showed no acute process but prominent lateral ventricles. Chest xray showed no acute process. He was admitted for further treatment. Discharge Providers Provider Date of admission: 06/24/21 16:11 Discharge Date: 06/27/21 Primary care physician: Parish Gamez MD Consults: 06/24/21 14:28 Consult to CADDY - [employer] Stat Comment: 06/24/21 19:46 Consult to Occupational Therapy Evaluate & Treat Comment: Physician Instructions: Evaluate and treat Consult to Physical Therapy Evaluate & Treat Comment: Physician Instructions: Evaluate and Treat Discharge provider: Tamra Lacey MD Summary Hospital Course Discharge Diagnosis: 1. Rhabdomyolysis 2. Hypertension 3. Hyperlipidemia 4. Generalized weakness Hospital Course: Patient is an 85-year-old male who was admitted to the hospital following a COVID booster shot where he became significantly weak. He laid on the floor for an unknown period of time. Patient was brought into the hospital found to have rhabdomyolysis. His CPK was elevated greater than 9000. Patient was placed on IV fluids. He had improvement of his CPK. His statin was held given the elevated CPK. The patient was evaluated by physical therapy and occupational therapy. They recommended home with 24 hour assistance, home health, SNF or rehab. They also recommended a front wheel walker instead of his cane. The patient does have caregivers twice a week. His son would like to encourage him to increase the number of days that they are in the home from 2 times per week to perhaps 7 times per week. The patient is opposed to going to snf but willing to go home with increasing caregiver. At this time he has no more muscle aches or pain. He is deemed appropriate for discharge. Patient will be discharged home. Status at Discharge Cognitive/behavioral status at discharge: oriented Functional status at discharge: uses cane/walker Overall status at discharge: patient is progressing back to baseline Exam Vital Signs (past 8 hours): - 06/27/21 00:00 06/27/21 06:00 Temperature 99.0 F 98.7 F Pulse Rate 80 82 Respiratory Rate 18 18 Blood Pressure 153/83 H 132/78 Pulse Oximetry 97 95 Oxygen Delivery Method Room Air Oxygen Flow Rate 0 Narrative Exam Narrative: Pleasant gentleman resting comfortably in no obvious distress Resp Other: Lungs clear to auscultation Cardio Other: Cardiac exam: Regular rate and rhythm normal S1-S2 GI Other: Abdomen soft nontender Extrem Other: Extremity no edema Objective Labs Result Diagrams: 06/26/21 05:18 06/27/21 06:02 Labs: Laboratory Results - last 24 hr 06/27/21 06/27/21 06/27/21 06:02 06:02 06:02 Sodium 140 Potassium 3.7 Chloride 112 H Carbon Dioxide 28 BUN 14 Creatinine 0.69 Estimated GFR > 60.0 BUN/Creatinine Ratio 20.3 Glucose 86 Calcium 8.0 L Total Bilirubin 0.6 AST 99 H ALT 68 H Alkaline Phosphatase 87 Total Creatine Kinase 899 H D Troponin I < 0.012 NT-Pro-B Natriuret Pep 1420 H Total Protein 5.1 L Albumin 2.8 L Globulin 2.3 Albumin/Globulin Ratio 1.2 [facility] Medical History Chickenpox (~1944) Colon polyps Elevated blood pressure reading Measles (~1945) Skin cancer (2014) Surgical History H/O local excision of skin lesion Family History Father No problems noted. Mother No problems noted. Grandfather No problems noted. Social History household members: none Smoking Status: Former smoker alcohol intake: current Discharge Assessment & Plan Assessment and Plan Assessment: Impression 1. Generalized weakness 2. Rhabdomyolysis, present on admission, resolving 3. Hypertension 4. Hyperlipidemia 5. BPH Plan of Treatment: Patient will be discharged home. His statin will be discontinued as his CPK is still elevated. This can be resumed once the CPK returns to normal. The patient will be discharged home with [facility]. His son will be here to pick him up and transport him home. The goal will be for him to increase caregiver availability from twice per week to perhaps 7 days per week. Discharge Plan Discharge Plan Patient Disposition: [facility] & Medications Prescriptions: Continued finasteride 5 MG tablet 5 mg PO DAILY Qty: 90 0RF aspirin 81 mg Capsule 81 mg PO DAILY 0RF lisinopril 10 mg Tablet 10 mg PO DAILY 0RF Discontinued atorvastatin 40 mg Tablet 40 mg PO BEDTIME 0RF Follow up/Referrals: Parish Gamez MD [Primary Care Provider] - Diet/Activity/Treatments Diet: Low-sodium Skin/Wound/Dressing Care Report to your healthcare provider any signs of infection, such as:: increased pain Visit Report/Discharge Packet Instructions: DI for Rhabdomyolysis Discharge Data Primary Care Provider: Parish Gamez Quality VTE Deep Vein Thrombosis/Pulmonary Embolism Present on Admission: No
[2021-06-27] MEDS: FINASTERIDE 5 MG TABLET PO (08:36)
[2021-06-27] MEDS: ASPIRIN 81 MG CHEW TAB PO (08:37)
[2021-06-27] MEDS: ENOXAPARIN 40 MG/0.4 ML SYRINGE SUBCUT (08:37)
[2021-06-27] MEDS: lisinopriL 10 MG TABLET PO (08:37)
[2021-06-27 08:45] VITALS: O2SAT 97
[2021-06-27 09:48] VITALS: BP 154/69; PULSE 76; RESP 18; TEMP 36.8; O2SAT 97
--- NOTE | 2021-06-27 10:58 | PT.IPTN ---
Current Diagnoses Rhabdomyolysis (06/24/21) Physical Therapy Treatment Note M2 PT-IP Current Condition Start: 06/25/21 12:18 Freq: NEEDED Status: Active Protocol: Document 06/26/21 10:00 SP (Rec: 06/26/21 15:41 SP [id number]) Physical Therapy Current Condition Current Condition Evaluation Date 06/25/21 Treatment Diagnosis rhabdomyolysis; difficulty in walking Onset Date 06/24/21 M3 PT-IP Subjective Start: 06/25/21 12:18 Freq: NEEDED Status: Active Protocol: Document 06/27/21 10:13 KS (Rec: 06/27/21 12:20 KS [id number]) Subjective Physical Therapy Visit Type Type Treatment Note Visit Start Time 10:13 Visit Stop Time 10:58 Total Visit Minutes 45 Number of [employer] Visits 2 Physical Therapy Visit Comments Patient Comments agreeable to do PT M4 PT-IP Mobility and Gait Start: 06/25/21 12:18 Freq: NEEDED Status: Active Protocol: Document 06/27/21 10:13 KS (Rec: 06/27/21 12:20 KS [id number]) PT-Bed Mobility Assessment Supine to Sit Supine to Sit Standby Assistance Scooting Scooting to Edge of Bed Contact Guard Assistance PT-Transfer Assessment Sit to and From Stand Sit to and from Stand Contact Guard Assistance,1 Person Assistance,Use of Upper Extremities Equipment Transfer Assistive Device Gait Belt,Front Wheeled Walker Orthotic/Prosthetic Devices or Brace: No Transfers Transfer Destination Chair,Toilet Transfer Technique Pt ambulated w/ FWW Transfer Ability Level of Assist Contact Guard Assistance, Minimal Assistance,1 Person Assistance,Use of Upper Extremities Comments Mobility Comments Pt in bed upon arrival from therapy. SBA and cues for sup< >Sit, CGA for scooting EOB, CGA and cues for hand placement for sit<>stand w/ FWW. Pt then ambulated ~100 ft around room w/ FWW and CGA. He had one R sided LOB requiring Min A for recovery. He has decreased stride and foot clearance w/ shuffling gait, and flexed trunk. Requires frequent cues for upright posture and increased stride. He then used toilet SBA w/ cues for FWW management whille turning to sit. Pt ambulated addtional 10 ft to chair, CGA and cues for slow descent when sitting. Pt then performed 1x10 bilateral ankle pumps, quad sets, and glute sets. Left in chair w/ all needs in reach. Gait Assessment Gait Gait Assistance Required: Contact Guard Assist,Minimum Assistance,1 Person Assist Distance (Feet) 110 Able to Maintain Weight Bearing Status Yes During Gait Assistive Devices Assistive Device Gait Belt,Front Wheeled Walker Orthotic/Prosthetic Devices or Brace: No Gait Deviations General Gait Pattern Ataxic,Decreased Stride Length ,Decreased Feet Clearance, Flexed Trunk,Lateral Trunk Lean,Wide Based Gait Factors Limiting Gait Function Factors Limiting Gait Function Decreased Activity Tolerance, Decreased Sensation,Decreased Strength,Difficulty Following Directions,Poor Balance,Poor Safety Awareness Comments Gait Comments Flexed postured shuffle like gait using fWW, CG- Min A, lateral R trunk lean, improves with cues posture/ increase foot clearance, stride and feet inside FWW during turns. 1x LOB to R Min A to recover. Stair Climbing Assessment Comments Stair Climbing Comments Does not have stairs. PT-Balance Assessment Sitting Balance and Reactions Static Sitting Balance Ability Good Dynamic Sitting Balance Ability Good Standing Balance and Reactions Static Standing Balance Ability Good Dynamic Standing Balance Ability Fair Device Used FWW M5 PT-IP Objective Assessments Start: 06/25/21 12:18 Freq: NEEDED Status: Active Protocol: Document 06/25/21 10:45 AB (Rec: 06/25/21 12:33 AB [id number]) Orientation Orientation/Cognition Level of Alertness Alert Orientation Name Language Function Ability Hard of Hearing Safety Awareness Decreased Safety Awareness Memory Description Short Term Impaired Comments with confusion Gross Range of Motion Lower Extremity ROM Assessment Within Functional Limits Strength Lower Extremity Strength Hip 4-/5 Knee 4-/5 Muscle Tone Muscle Tone WNL Yes M6 PT-IP Treatment Start: 06/25/21 12:18 Freq: NEEDED Status: Active Protocol: Document 06/27/21 10:13 KS (Rec: 06/27/21 12:20 KS [id number]) Physical Therapy Treatment Exercises Exercises Ankle Pumps,Gluteal Sets,Quad Sets Education Education Provided Safety Other Treatments Other Treatment Performed Discussed increased caregiver and HHPT, pt open to both. M7 PT-IP Assessment and Plan Start: 06/25/21 12:18 Freq: NEEDED Status: Active Protocol: Document 06/27/21 10:13 KS (Rec: 06/27/21 12:20 KS [id number]) PT Summary Assessment and Plan Potential Rehabilitation Potential Good Summary Impairments Pain,ROM,Strength,Balance, Coordination,Sensation,Tone, Cognition,Bed Mobility, Transfers,Gait,Activity Tolerance Progress Towards Goals Progressing Toward Goals,Slow Progress due to Activity Tolerance,Slow Progress - Other Assessment Summary Pt contineus to require mostly CGA for mobility, transfers, and ambulation. SBA for bed mobility, Min A for balance and FWW management occasionally. He was able to ambulate ~110 ft w/ FWW, but required frequent cues for upright posture and quad activation. His shuffling gait and weakness make him a fall risk and he would benefit from going to SNF to improve strength and safety, however if going home will need increase to daily caregiver and HHPT to assess strenght, balance, and gait deficits. Pt will also need FWW for home use. Goals Bed Mobility Goal Standby Assistance Transfer Goal Standby Assistance,Front Wheeled Walker Gait Goal Standby Assistance,Front Wheel Walker Gait Distance 200 Days to Meet Goals 10 Frequency of Treatment Frequency Of Treatment Once a Day Treatment Plan Physical Therapy Treatment Plan Bed Mobility Training,Transfer Training,Gait Training, Therapeutic Exercise,Balance Retraining,Discharge Planning, Hot or Cold Pack,Neuromuscular Re-ed,Coordination Retraining Other Recommendations and Next Treatment bed mob, transfers, gait FWW Focus further distance. Precautions Other Precautions falls Recommendations To Nursing Amount of Assist Needed 1 Person Assist Discharge Recommendations PT Discharge Recommendations Home with 16/02 Assist Available,Home Health,SNF Rehab Equipment Needed for Home Before FWW if pt goes home Discharge Transportation Needs at Discharge Private Vehicle,Wheelchair/ Cabulance
--- NOTE | 2021-06-27 12:11 | OT.IP.TRT ---
Current Diagnoses Rhabdomyolysis (06/24/21) Occupational Therapy Treatment Note M2 OT-IP Current Condition Start: 06/25/21 15:00 Freq: Status: Active Protocol: Document 06/25/21 14:10 [facility] (Rec: 06/25/21 15:21 [facility] [id number]) Occupational Therapy Current Condition Current Condition Evaluation Date 06/25/21 Treatment Diagnosis Generalized weakness, decreased mobility Diagnosis Onset Date 06/24/21 M3 OT- IP Subjective and Pain Start: 06/25/21 15:00 Freq: Status: Active Protocol: Document 06/27/21 12:01 [facility] (Rec: 06/27/21 12:10 [facility] [id number]) OT- Subjective Occupational Therapy Visit Type Type Treatment Note Visit Start Time 11:25 Visit Stop Time 11:56 Total Visit Minutes 31 Occupational Therapy Visit Comments Patient Comments Pt agreed to do Thompson Cognitive Level Screen for cognitive assessment. Patient/Caregiver Goals To go home. OT Pain Assessment Pain When Pain Assessed At Rest Pain Present Pain Present Denied Pain M6 OT- IP Functional Cognition Start: 06/25/21 15:00 Freq: Status: Active Protocol: Document 06/27/21 12:01 [facility] (Rec: 06/27/21 12:10 [facility] [id number]) Cognitive Factors Limiting Selfcare Function Cognitive Ability Level of Alertness Alert Patient Orientation Name,Place,Situation Attention Span Ability Capable of Focused Attention, Capable of Sustained Attention Ability to Follow Commands Able to Follow One Step Commands Memory Description Short Term Impaired Safety Awareness Underestimates Need for Assistance Problem Solving Ability Needs Assist to Identify Solutions Cognitive Comments Cognitive Assessment Comments Pt scored 4.4 out of 6.0 on the Thompson Cognitive Level Screen which implies pt to lives with someone who does daily check on the environment and removes any safety hazzards and solves any new problems. Pt may be alone for part of the day with procedure for obtaining help by phone or from a neighbor. Pt states has a Life Alert but does not like to wear it on his neck. Informed pt to ask as their are wrist band options for the Life Alert. Pt able to identify that he has difficulty carrying food items to the TV room. Suggested may be beneficial to have a tv in the kitchen to decrease risk of falls and therefore pt can just slide items on the counter versus having to carry them. Showed pt of possible option of FWW tray attachment. Pt open to having home health come to the house to assist him. M7 OT- IP Mobility and Balance Start: 06/25/21 15:00 Freq: Status: Active Protocol: Document 06/26/21 10:40 [facility] (Rec: 06/26/21 12:55 [facility] [id number]) OT-Transfer Assessment Sit to and From Stand Sit to and from Stand Standby Assistance,Contact Guard Assistance Transfers Transfer Ability Standby Assistance,Contact Guard Assistance Technique Transfer Destination Bed Devices Transfer Assistive Devices Gait Belt,Front Wheeled Walker Comments Mobility Comments Pt increase time to stand close SBA and able to walk to the sink with CGA to close SBA . OT- Gait Assessment Comments Gait Ability Comments CGA with FWW in the room. OT- Balance Assessment Sitting Balance and Reactions Static Sitting Balance Ability Good Dynamic Sitting Balance Ability Good Standing Balance and Reactions Static Standing Balance Ability Fair Dynamic Standing Balance Ability Poor M8 OT- IP Objective Assessments Start: 06/25/21 15:00 Freq: Status: Active Protocol: Document 06/25/21 14:10 [facility] (Rec: 06/25/21 15:21 [facility] [id number]) OT Gross Range of Motion Upper Extremity Range of Motion Assessment Bilaterally Impaired OT- Coordination Assessment Comments Coordination Comments Difficulty to use his left hand to assist to doff his socks. OT-Muscle Tone Assessment Muscle Tone WNL Yes M9 OT- IP Assessment and Plan Start: 06/25/21 15:00 Freq: Status: Active Protocol: Document 06/27/21 12:01 [facility] (Rec: 06/27/21 12:10 [facility] [id number]) OT Summary Assessment and Plan Potential Rehabilitation Potential Good Analytic Complexity at Evaluation Moderate Summary Progress Towards Goals Progressing Toward Goals Assessment Summary Pt scored 4.4 out of 6.0 on the Thompson Cognitive Level Screen which implies pt to lives with someone who does daily check on the environment and removes any safety hazards and solves any new problems. Pt may be alone for part of the day with procedure for obtaining help by phone or from a neighbor. Pt states has a Life Alert but does not like to wear it on his neck. Informed pt to ask as there are wrist band options for the Life Alert. Goals Grooming Goal Independent Dressing Goal Independent Toileting Goal Independent Bathing Goal Independent Toilet Transfer Goal Independent Shower Transfer Goal Independent Days to Meet Goals 5 Frequency of Treatment Frequency Of Treatment Once a Day Treatment Plan OT Treatment Plan ADL Training,Functional Cognition Training,Functional Mobility,Patient/Family Education,Discharge Planning Other Treatment Recommendations and Next shower Treatment Focus Discharge Recommendations OT Discharge Recommendations Home with 24/7 Assist Available,Home Health Transportation Needs at Discharge Private Vehicle
[2021-06-27 13:31] VITALS: BP 138/70; PULSE 68; RESP 18; TEMP 36.7; O2SAT 98
--- NOTE | 2021-06-27 15:30 | PC.NURSE ---
D/C to home ordered. Home health set-up my D/C planning. IV removed. Tele removed. Education provided to pt and son, both verbalized understanding of all d/c instructions. Stated they will call PCP to schedule f/up. Requested a new PCP. This sign writer hand advised pt to call local clinics to check if they are accepting new pts. Enc to still f/up with current pcp until new PCP is established. Escorted out via w/c to private vehicle. Pt left in stable condition with all personal belongings.
== END 2021-06-27 14:15 | disposition home or self-care (01) | DRG 558 ==
LOC: ED 15:44 → AC 06-25 04:04
PROVIDERS: Internal Medicine; Admitting Provider Internal Medicine; Emergency Provider Emergency Medicine; PCP Family Medicine; Visit Provider Internal Medicine
DX: M62.82 Rhabdomyolysis (principal); R53.1 Weakness; D69.6 Thrombocytopenia, unspecified; N40.0 Benign prostatic hyperplasia without lower urinary tract symptoms; I10 Essential (primary) hypertension; Z66 Do not resuscitate; Z87.891 Personal history of nicotine dependence; Z20.822 Contact with and (suspected) exposure to COVID-19
CPT/HCPCS: 36415; 70450; 71045; 80048; 80053; 81001; 82550; 82553; 83605; 83690; 83735; 83880; 84484; 85025; 85610; 85730; 87086; 87635; 93005; 94760; 96360; 96361; 97110; 97116; 97129; 97130; 97162; 97166; 97530; 97535; 99284; C9803; J1650